=== PATIENT | male | born 1965 | race Caucasian/White ===

== ENCOUNTER → 2020-07-19 13:52 | Outpatient (CLI) | payer OTHER, SELFPAY ==
--- NOTE | ~2020-07-19 | MR_ITS ---
EXAMINATION: MR cervical spine wo con EXAM DATE: 07/19/2020 14:33 INDICATION: Left-sided neck pain, shoulder pain intermittent. TECHNIQUE: Multi-sequential, multiplanar MR images of the cervical spine were obtained without contra st. Axial T2, axial T2 MERGE sequence. Sagittal T1, T2, T2 fat saturation images also obtained. Th ere is no prior study for comparison. FINDINGS: There is moderate loss of the C4-5 disc height. The vertebral body and disc heights are ot herwise well maintained. The vertebral bodies are aligned in the AP dimension. The spinal cord signal intensity and intrinsic morphology is normal. Cervicomedullary junction is normal in appearance. The re are no suspicious marrow signal abnormalities. Level by level evaluation: C2-C3: Disc does not extend beyond the endplate margin. Uncovertebral joint arthropathy: Mild bilateral. Facet joint arthropathy: Mild bilateral. Neural foraminal stenosis: No stenosis. Central canal stenosis: No stenosis. C3-C4: Disc does not extend beyond the endplate margin. Uncovertebral joint arthropathy: Mild to moderate right, mild left. Facet joint arthropathy: Mild bilateral. Neural foraminal stenosis: Mild right. Central canal stenosis: No stenosis. C4-C5: There is a mild diffuse disc bulge. Uncovertebral joint arthropathy: Mild to moderate bilateral. Facet joint arthropathy: Mild bilateral. Neural foraminal stenosis: Moderate bilateral. Central canal stenosis: Mild. C5-C6: There is a minimal diffuse disc bulge. Uncovertebral joint arthropathy: Mild to moderate right, mild left. Facet joint arthropathy: Mild bilateral. Neural foraminal stenosis: Mild to moderate right, mild left. Central canal stenosis: No stenosis. C6-C7: There is a mild diffuse disc bulge, small superimposed left central protrusion into lateral re cess. Uncovertebral joint arthropathy: Mild to moderate left, mild right. Facet joint arthropathy: Mild bilateral. Neural foraminal stenosis: No stenosis. Central canal stenosis: Left lateral recess narrowing. C7-T1: There is a disc bulge asymmetric to the right. Uncovertebral joint arthropathy: Mild bilateral. Facet joint arthropathy: Mild bilateral. Neural foraminal stenosis: No stenosis. Central canal stenosis: No stenosis. IMPRESSION: 1. C6-7 left central protrusion narrowing the lateral recess. 2. Moderate neural foraminal stenosis C4-5. Reviewed, dictated and finalized at location A. 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
== END ==
PROVIDERS: PCP Family Medicine; Visit Provider Chiropractor Rehabilitation
DX: M54.12 Radiculopathy, cervical region (principal)
CPT/HCPCS: 72141

== ENCOUNTER 2021-11-29 15:37 | Outpatient (CLI) | payer OTHER, SELFPAY ==
--- NOTE | ~2021-11-29 | MR_ITS ---
EXAMINATION: MR cervical spine wo con DATE: 11/29/2021 16:27 INDICATION: Cervical radiculopathy. TECHNIQUE: Magnetic resonance imaging (MRI) of the cervical spine was performed without intravenous c ontrast. Sequences included sagittal T2-weighted FSE, sagittal T2-weighted FS FSE, sagittal T1-weight ed FSE, axial MERGE, and axial T2-weighted FSE. COMPARISON: Cervical spine MRI 07/19/2020 FINDINGS: There is 5 degrees levocurvature of cervicothoracic spine. Vertebral body heights are charlie l. There is moderately decreased disc height at C4-C5 and mildly decreased disc height at C6-C7. The spinal cord signal intensity is normal. The following disc levels are specifically discussed: C2-C3: The disc does not extend beyond the endplate margin. There is no uncovertebral joint osteoarth ritis. There is mild bilateral facet joint osteoarthritis. There is no neural foraminal stenosis. The re is no central canal stenosis. C3-C4: The disc does not extend beyond the endplate margin. There is mild bilateral uncovertebral paola nt osteoarthritis. There is no facet joint osteoarthritis. There is no neural foraminal stenosis. The re is no central canal stenosis. C4-C5: The disc is bulging. There is moderate bilateral uncovertebral joint osteoarthritis. There is severe left facet joint osteoarthritis. There is mild bilateral neural foraminal stenosis. There is m ild central canal stenosis. C5-C6: The disc does not extend beyond the endplate margin. There is mild bilateral uncovertebral paola nt osteoarthritis. There is mild bilateral facet joint osteoarthritis. There is mild bilateral neural foraminal stenosis. There is no central canal stenosis. C6-C7: There is a left central and foraminal zone extrusion. There is mild bilateral uncovertebral corinne int osteoarthritis. There is no facet joint osteoarthritis. There is moderate left neural foraminal s tenosis. There is mild central canal stenosis. There is mild stenosis of left lateral recess. C7-T1: There is a right central extrusion. There is no uncovertebral joint osteoarthritis. There is m ild bilateral facet joint osteoarthritis. There is no neural foraminal stenosis. There is mild centra l canal stenosis. IMPRESSION: 1. Moderate cervical spondylosis, stable from 07/19/2020. Reviewed, dictated and finalized at location A.
== END 2021-11-29 15:38 | disposition home or self-care (01) ==
PROVIDERS: PCP Family Medicine; Visit Provider Nurse Practitioner Adult Health
DX: M47.22 Other spondylosis with radiculopathy, cervical region (principal)
CPT/HCPCS: 72141

== ENCOUNTER 2022-03-11 14:15 | Outpatient (RCR) | payer OTHER, SELFPAY ==
[2022-02-25 09:47] VITALS: BMI 28.1
[2022-02-25 10:13] VITALS: BMI 28.1
== END 2022-05-13 09:55 | disposition home or self-care (01) ==
LOC: ANHDMC 14:15
PROVIDERS: PCP Family Medicine; Visit Provider Internal Medicine Endocrinology, Diabetes & Metabolism
DX: E11.65 Type 2 diabetes mellitus with hyperglycemia (principal); Z71.3 Dietary counseling and surveillance; Z71.89 Other specified counseling
CPT/HCPCS: 97802; G0108

== ENCOUNTER 2022-03-17 09:07 | Outpatient (RCR) | payer OTHER, SELFPAY ==
--- NOTE | 2022-03-17 10:17 | PTOPEVAL ---
PHYSICAL THERAPY EVALUATION Thank you for referring Wayne Walsh to [facility].? The patient is scheduled for an appointment in a month to await receiving his prosthesis. At that time a further care plan will be developed. Please review, sign, date and return this plan of care GENARO. I agree with and certify that the following plan of care is medically necessary. Referring Physician Date Attending Provider: Elan Calderon, Diagnosis left transtibial amputation Onset 11/06/21 Subjective Information well healed residual limb. His Query Text:As Reported By Patient/ amputation was a result of Family complications from an infection in left foot. Here today for trial and training with left lower extremity prosthetic. Prosthetic is present for trial. 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 Lower Extremity Range of Motion General Lower Extremity Range of Motion Reason Not Measured WFL/Left,WFL/Right Lower Extremity Muscle Strength Testing Hip Strength Left Hip Flexion Strength 5 Normal Hip Extension Strength 5 Normal Hip Abduction Strength 5 Normal Right Hip Flexion Strength 5 Normal Hip Extension Strength 4+ Good + Hip Abduction Strength 4+ Good + Knee Strength Left Knee Flexion Strength 5 Normal Knee Extension Strength 5 Normal Right Knee Flexion Strength 5 Normal Knee Extension Strength 5 Normal Ankle Strength Right Ankle Dorsiflexion Strength 4+ Good + Palpation well healed left residual limb Balance Assessment [place] Balance Assessment: 35/56 Comments while wearing prosthetic limb on left LE Time Up Go (TUG) Timed Up and Go Test (TUG) (Seconds) 21 Assistive Devices Walker, Wheeled Comments while wearing prosthetic limb
--- NOTE | 2022-04-16 09:39 | PCPTNOTE ---
Patient called & cancelled scheduled re-evaluation due to still not having received is prosthesis. He has been rescheduled.
--- NOTE | 2022-05-13 14:49 | PCPTNOTE ---
Patient did not show up for scheduled appointment this date.
--- NOTE | 2022-05-29 08:06 | PCPTNOTE ---
Called and left voicemail for patient asking if he has received his prosthesis yet. He was instructed to call in the next week if he needs to be scheduled. If we do not hear back from him, he will be discharged.
--- NOTE | 2022-06-03 09:16 | PTOPDC ---
Assessment and note entered by Niki Renteria, PT, DPT Evaluation Information Assessment Status Discharge - Pt Not Present Subjective Information Pt did not show up for his re-evaluation on . He was called and told that if he did not reschedule he would be discharged. Assessment PT Clinical Summary Pt has attended his initial evaluation on 03/17/22 and has not returned since. He will be discharged from skilled therapy services at this time. If he needs to return at a later date, he will need a new order. Plan of Care Treatment Frequency and to be discharged Duration
== END 2022-06-03 11:38 | disposition home or self-care (01) ==
LOC: ANHPT 09:07
PROVIDERS: PCP Family Medicine; Visit Provider Family Medicine
DX: M86.9 Osteomyelitis, unspecified (principal); Z89.512 Acquired absence of left leg below knee
CPT/HCPCS: 97163; 99199

== ENCOUNTER 2022-07-21 14:00 | Outpatient (RCR) | payer OTHER, SELFPAY ==
--- NOTE | 2022-06-23 15:33 | PTOPEVAL1 ---
Assessment and note entered by Ankit Shaikh, PT Evaluation Information Assessment Status Evaluation Diagnosis acquired absence of left lower extremity Subjective Information Patient reports that his L below knee amputation has healed and he has his prosthetic and would like to progress out of the wheelchair or using an assitive device and be a community ambulator. Reported Pain Level Pain Score 0: Self Report Assessment PT Clinical Summary Wayne is a 57 year old male coming into the clinic for a L below the knee amputation that has healed up and to start working on prosthetic training to walk without assistive device in a community setting especially outdoors on uneven surfaces. The patient has good strength besides hip abduction and extension. In walking patient appears to demonstrate L hip circumduction and hip hike to allow for foot clearance. Physical therapy will work with the patient on improving hip strength to allow for a good foundation for the prosthetic and gait training to improve patient's functional mobility. Plan of Care Interventions Electrical Stimulation,Gait Training,Hot Pack/Cold Pack,Manual Therapy,Neuro Re-education,Patient/ Caregiver Education,Prosthetic Training,Therapeutic Activities,Therapeutic Exercise,Ultrasound PT Services Indicated Yes Treatment Frequency and 2x/wk for 6 weeks Duration These treatments will address the objective and functional deficits as defined above. The patient will be advanced safely and appropriately in order for the patient to progress towards his/her prior level of function. Additional exercises will be introduced and as well as a comprehensive home exercise program upon discharge, if needed, ?to ensure carryover of functional gains achieved in the clinic. This treatment plan has been reviewed and agreement upon by the patient.
--- NOTE | 2022-09-17 16:55 | PCPTNOTE ---
Admitting Provider: Attending Provider: Elan CalderonMD Patient:Wayne Walsh Jr. Date of :1965 Patient has not returned for any further treatments since 07/21/2022, therefore (he/she) will be discharged at this time. Patient?s initial visit was on 06/23/2022 13:00 and (he/she) had a total of 8 visits. The goals have been (met). Thank you for referring this patient to [facility]. Please review, sign, date and return this discharge summary GENARO. I have been updated about the patient's current status and I agree with discharge from the above service at this time. Referring Physician Date
== END 2022-09-09 13:47 | disposition home or self-care (01) ==
LOC: ANHPT 14:00
PROVIDERS: PCP Family Medicine; Visit Provider Family Medicine
DX: Z47.81 Encounter for orthopedic aftercare following surgical amputation (principal); Z89.512 Acquired absence of left leg below knee
CPT/HCPCS: 97110; 97116; 97161; 97530; 97761

== ENCOUNTER 2022-12-09 09:02 | Emergency (ER) | payer OTHER, SELFPAY ==
--- NOTE | ~2022-12-09 | XR_ITS ---
EXAMINATION: XR finger 4th RT min 2V DATE: 12/09/2022 09:49 INDICATION: Right hand fourth digit foreign body. TECHNIQUE: 4 views of right hand fourth digit were obtained. COMPARISON: None. FINDINGS: Bone alignment is normal. No fracture. There is no evidence of osteomyelitis. There is mild osteoarthritis of fourth metacarpophalangeal joint and distal interphalangeal joint. No radiopaque f oreign body. IMPRESSION: 1. No radiopaque foreign body. Reviewed, dictated and finalized at location A.
[2022-12-09 09:17] VITALS: BP 132/74; PULSE 59; RESP 16; TEMP 36; O2SAT 99
--- NOTE | 2022-12-09 09:25 | ED.UPPEXIN ---
HPI - Extremity Injury (Upper) General Chief Complaint: Extremity Injury, Upper Stated Complaint: finger pain and irritation/rt hand Time Seen by Provider: 12/09/22 09:25 Source: patient Mode of arrival: ambulatory Limitations: no limitations History of Present Illness HPI narrative: 57 yo M presents with concern for infection to R ring finger. 1 week ago he was working outside and was stuck by a thorn. He began to have redness and swelling to R ring finger 3 days ago and getting progressively worse. afebrile. reports due to his diabetes he likes to get infections taken care of right away. ROM to R ring decreased due to pain and swelling. distal NV intact. All systems reviewed and negative except as noted above. Related Data Home Medications Medication Instructions Recorded Confirmed allopurinol 300 mg tablet 300 mg PO DAILY 12/09/22 12/09/22 aspirin 81 mg tablet,delayed 81 mg PO DAILY 12/09/22 12/09/22 release empagliflozin 10 mg tablet 10 mg PO DAILY 12/09/22 12/09/22 (Jardiance) fenofibrate 160 mg tablet 160 mg PO DAILY 12/09/22 12/09/22 metformin 1,000 mg tablet 1,000 mg PO BID 12/09/22 12/09/22 metoprolol succinate 25 mg 25 mg PO DAILY 12/09/22 12/09/22 tablet,extended release 24 hr omega-3 acid ethyl esters 1 gram 1 g PO DAILY 12/09/22 12/09/22 capsule simvastatin 40 mg tablet 40 mg PO DAILY 12/09/22 12/09/22 Allergies Allergy/AdvReac Type Severity Reaction Status Date / Time No Known Allergies Allergy Verified 12/09/22 19:05 Review of Systems Review of Systems: CONSTITUTIONAL: Denies fever, chills, or sweats. EYES: Denies visual changes, redness, or discharge. ENT: Denies rhinorrhea, congestion, sore throat, or otalgia. CARDIOVASCULAR: Denies chest pain, palpitations, or edema. RESPIRATORY: Denies cough or dyspnea. GASTROINTESTINAL: Denies abdominal pain, nausea, vomiting, or diarrhea. GENITOURINARY: Denies dysuria or hematuria. SKIN: Erythema and swelling noted to right ring finger. MUSCULOSKELETAL: Denies back pain, joint pain, or myalgia. NEUROLOGIC: Denies headache, numbness, or weakness. PSYCHIATRIC: Denies anxiety or depression. All other systems reviewed are negative, except as documented in HPI. 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 He lives with his . He has 4 children . 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 Code status full code Smoking packs per day: 0.75 Smoking cigarettes per day: 15.0 Years smoked: 15 Smoking pack-years: 11.25 Smoking status: Current every day smoker Tobacco type: cigarettes Alcohol intake: current Lack of Transportation: No Lack of Food: Never True Current Housing: I Have Housing Concerned About Future Housing: No Difficulty Paying Gas/Electric Bills: No Difficulty Paying for Meds: No Currently Unemployed: No Education: Associate Degree Difficulty w/ Childcare or Family Care: No Spiritual care concerns: No Comments At time of signature, agree with nursing past medical, surgical, social and family history. There is no relevant family history pertinent to the presenting complaint.
[2022-12-09] MEDS: cefTRIAXone 1 GM, LIDOCAINE HCL 1% LOCAL INJ 2.1 ML IM (10:00)
== END 2022-12-09 10:32 | disposition home or self-care (01) ==
PROVIDERS: Emergency Provider Nurse Practitioner Family; PCP Family Medicine
DX: L03.011 Cellulitis of right finger (principal); F17.210 Nicotine dependence, cigarettes, uncomplicated; E11.9 Type 2 diabetes mellitus without complications; M10.9 Gout, unspecified; E78.5 Hyperlipidemia, unspecified; I10 Essential (primary) hypertension; Z89.512 Acquired absence of left leg below knee
CPT/HCPCS: 73140; 96372; 99213; G0463; J0696

== ENCOUNTER 2022-12-09 18:20 | Observation (INO) | payer OTHER, SELFPAY ==
[2022-12-09] VITALS (7 sets, daily range): BP systolic 128–148; BP diastolic 68–79; PULSE 62–72; RESP 16–18; TEMP 36.5–36.6; O2SAT 92–97; BMI 28.6
--- NOTE | 2022-12-09 19:23 | ED.GENADULT ---
HPI - General Adult General Chief complaint: Skin/Abscess/Foreign Body Stated complaint: finger wound Time Seen by Provider: 12/09/22 19:09 History of Present Illness HPI narrative: Patient is a 57-year-old gentleman who presents the emergency department with chief complaint of right ring finger pain. Patient reports that approximately week ago he thinks he may have pricked his finger on a thorn of a lydia richter. The patient states that since that time his fingers become swollen and is holding it in a flexed position. Patient states that the area has become black and now is tender to touch even after receiving a IM dose of Rocephin in urgent care this morning and being started on Keflex. The patient has prior history of diabetes and has had complications of osteomyelitis and a below-knee amputation of his left lower extremity. The patient reports that his symptoms have not improved since receiving the IM antibiotics Related Data Home Medications Medication Instructions Recorded Confirmed allopurinol 300 mg tablet 300 mg DIRECTED 12/09/22 12/09/22 aspirin 81 mg tablet,delayed 81 mg DIRECTED 12/09/22 12/09/22 release empagliflozin 10 mg tablet mg 12/09/22 (Jardiance) fenofibrate 160 mg tablet mg 12/09/22 metformin 1,000 mg tablet mg 12/09/22 metoprolol succinate 25 mg mg PO 12/09/22 tablet,extended release 24 hr omega-3 acid ethyl esters 1 gram PO 12/09/22 capsule simvastatin 40 mg tablet mg 12/09/22 Allergies Allergy/AdvReac Type Severity Reaction Status Date / Time No Known Allergies Allergy Verified 12/09/22 19:05 Review of Systems Review of Systems: A 10 system review of systems was completed on the patient and is negative except for what is stated in the HPI. Nursing and ancillary documentation was reviewed. [facility] Social History Social History Spiritual care concerns: No Exam Narrative: GENERAL: Well-appearing, well-nourished, and in no acute distress. HEAD: Normocephalic, atraumatic. EYES: PERRLA and EOMI. ENT: Nares clear, no rhinorrhea or epistaxis. Mucous membranes moist. NECK: Supple. CHEST: Clear to auscultation. No respiratory distress. HEART: Regular rate and rhythm. No murmur heard. Normal peripheral pulses. ABDOMEN: Soft, nontender, nondistended, normal active bowel sounds. EXTREMITIES: Normal range of motion. No edema. There is redness and black-colored tissue of the the right ring finger the patient is holding finger in a flexed position and has difficulty bending the tip of the finger is there is no crepitance there is no drainage. SKIN: Warm, dry, no rash. NEURO: No focal deficits. Alert and oriented x3. PSYCH: Normal mood and affect. Course Vital Signs Vital signs: Vital Signs Temperature 36.5 C 12/09/22 18:22 Pulse Rate 72 12/09/22 18:22 Respiratory Rate 18 12/09/22 18:22 Blood Pressure 148/78 H 12/09/22 18:22 Pulse Oximetry 96 12/09/22 18:22 Oxygen Delivery Room Air 12/09/22 18:22 Temperature 36.5 C 12/09/22 18:22 Pulse Rate 65 12/09/22 20:32 Respiratory Rate 16 12/09/22 20:32 Blood Pressure 133/73 12/09/22 20:32 Pulse Oximetry 94 12/09/22 20:32 Oxygen Delivery Room Air 12/09/22 18:22 Medical Decision Making MDM Narrative Medical decision making narrative: Differential diagnoses include cellulitis, abscess, osteomyelitis, flexor tenosynovitis Records were reviewed from the patient's visit to urgent care this morning, images were personally reviewed by me and that showed no evidence of subcutaneous emphysema radiology report showed no evidence of osteomyelitis fracture or radiopaque foreign body Patient was started empirically on clindamycin Laboratory studies were obtained which showed a white count of 8.1 is not significant electrolytes showed a glucose of 313 CRP was elevated at 5.9 and lactate was normal at 1.1. Blood cultures were
[2022-12-09 20:43] LABS: Basophils Absolute Auto 0.1 K/mm3 (0.0-0.1); Basophils Percent Auto 0.6 % (0.2-1.2); Eosinophils Absolute Auto 0.1 K/mm3 (0-0.3); Eosinophils Percent Auto 0.9 % (0-4.4); Hematocrit 41.9 % (42.0-52.0); Hemoglobin 14.1 g/dL (14.0-18.0); Immature Granulocyte Absolute 0.04 K/mm3 (0.00-0.031); Immature Granulocyte Percent A 0.5 % (0-0.5); Lymphocytes Absolute Auto 1.48 K/mm3 (0.9-3.2); Lymphocytes Percent Auto 18.4 % (18.3-44.2); Mean Corpuscular HGB Conc 33.7 g/dl (32-36); Mean Corpuscular Hemoglobin 29.6 pg (26-34); Mean Corpuscular Volume 87.8 fl (80-100); Mean Platelet Volume 10.9 fl (7.4-10.4); Monocytes Absolute Auto 0.5 K/mm3 (0.1-0.6); Monocytes Percent Auto 6.5 % (2.6-8.5); Neutrophils Absolute Auto 5.9 K/mm3 (1.3-6.7); Neutrophils Percent Auto 73.1 % (45.5-73.1); Platelet Count Result 145 k/mm3 (150-375); Red Blood Count 4.77 M/mm3 (4.6-6.20); Red Cell Distribution Width 14.4 % (11.5-14.5); White Blood Count 8.1 K/mm3 (4.5-10.0)
[2022-12-09 20:55] LABS: Lactic Acid Reflex 1.1 mmol/L (0.7-2.0)
[2022-12-09 21:09] LABS: Alanine Aminotransferase 18 U/L (6-50); Alkaline Phosphatase 52 U/L (38-126); Anion Gap 8 mmol/L (8-16); Aspartate Amino Transferase 18 U/L (17-59); Bilirubin,Total 0.7 mg/dL (0.2-1.3); Blood Urea Nitrogen 18 mg/dL (9-20); CRP 5.9 mg/dL (<1.0); Calcium 9.3 mg/dL (8.4-10.2); Carbon Dioxide 28 mmol/L (22-30); Chloride 100 mmol/L (98-107); Estimated CRCL calculation 84 ml/min; Estimated Glomerular Filt Rate > 60; Glucose 313 mg/dL (65-110); Potassium 3.9 mmol/L (3.4-5.0); Sodium 136 mmol/L (137-145)
[2022-12-09] MEDS: CLINDAMYCIN 600 MG/D5W 50 ML 600 MG/50 ML PIGGYBACK 100 MG IVPB (21:13)
--- NOTE | 2022-12-09 21:27 | PM.IMHP ---
H&P: HPI History of Present Illness Date/Time: 12/09/22 21:27 Chief Complaint: Skin abscess Narrative: This is a 57-year-old diabetic male patient who came to the emergency room with concerns of infection to his right ring finger. He had right ring finger pain. The patient stated approximately week ago he thinks he perked his finger on a thorn of a lydia richter. The patient states that since that time he has been holding his hand in a flexed position since the finger is swollen. The patient stated that he did go to the urgent care and he was given a dose of IM Rocephin and was treated with Keflex. The patient has had 2 days of Keflex and his fingers not getting any better. The patient stated that his blood sugars are typically around 140. The patient has had a history of osteomyelitis and eventually had a left [id number] amputation. His white count is normal. Platelets are slightly low at 145. Sodium slightly low at 136. His glucose is noted to be 313. His C reactive protein is 5.9. His heart rate is 62 and his blood pressure is 136/69. The patient does not appear to be septic. There is significant swelling to the left ring finger and the patient is not able to Street not his ring finger due to the swelling. The patient was given clindamycin in the emergency room. X-ray of the finger was read as no radiopaque foreign body. Plastic surgeon Dr. Carrasquillo was notified and agreed to consult on the patient. The patient is being admitted to observation status on the date of service of 12/09/2022. Review of Systems Review of Systems: All systems reviewed & are unremarkable except as noted in HPI and below Constitutional: Constitutional: Reports as per HPI and Reports no additional constitutional complaints Eyes: Eyes: Reports as per HPI and Reports no additional eye complaints ENT: Reports system reviewed and no additional complaints, except as documented and Reports Normal hearing present Cardiovascular: Cardiovascular: Reports no additional cardiovascular complaints Respiratory: Respiratory: Reports no additional respiratory complaints and Reports no additional respiratory complaints Gastrointestinal: Gastrointestinal: Reports as per HPI and Reports no additional gastrointestinal complaints Musculoskeletal: Musculoskeletal: Reports no additional musculoskeletal complaints Integumentary/Breasts: Skin/Breast: Reports system reviewed and no additional complaints, except as docu and Reports as per HPI Neurologic: Reports system reviewed and no additional complaints, except as documented, Reports as per HPI and Reports Normal hearing present Psychiatric: Psychiatric: Reports no additional psychiatric complaints and Reports as per HPI Endocrine: Endocrine: Reports no additional endocrine complaints Hematologic/Lymphatic: Hematologic/Lymphatic: Reports no additional hematologic/lymphatic complaints Allergic/Immunologic: Allergic/Immunologic: Reports no additional allergic/immunologic complaints PMFSH Past Medical History Medical History (Updated 12/09/22 @ 23:13 by Giana Ramey NP) Amputated toe Below knee amputation left bka Diabetes Gout Hyperlipidemia associated with type 2 diabetes mellitus Hypertension Surgical History Surgical History (Updated 12/09/22 @ 21:31 by Giana Ramey NP) H/O eye surgery Hx of cataract extraction Family History Family History (Updated 12/09/22 @ 22:36 by DENNIS Barron) Mother Diabetes mellitus Hyperlipidemia associated with type 2 diabetes mellitus Father Diabetes mellitus Hyperlipidemia associated with type 2 diabetes mellitus Hypertension Lung cancer Sibling Cerebrovascular accident Social History Social History (Updated 12/09/22 @ 23:05 by Giana Ramey NP) Social History: 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 He lives with his . He has 4 children . 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
[2022-12-09] MEDS: CEFEPIME 2 GM/NS 50 ML 2 GM/50 ML BAG IVPB (22:03)
--- NOTE | 2022-12-09 22:33 | ADMGEN ---
This patient, Wayne Walsh Jr., was admitted to [address] [place] [address] Room 300-01. Patient/family oriented to hospital policies and general routines including ID bracelet, bed and alarms, visiting hours, pain management, procedures, bathroom and other care routines, personal items, smoking policy, room service/diet, and visiting hours. Information on how to activate the Rapid Response Team has been discussed. Patient/Family are encouraged to report perceived risks to care and to ask questions if they do not understand what they are told or what they should do.
[2022-12-09] MEDS: SODIUM CHLORIDE 0.9% IV 1,000 ML 125 ML IV CONT (22:55)
[2022-12-10] MEDS: metroNIDAZOLE 500 MG/ISO 100ML 500 MG/100 ML BAG 100 MG IVPB ×4 (02:12→22:51)
[2022-12-10 02:31] LABS: Glucose Point of Care 325 mg/dl (65-105)
[2022-12-10] MEDS: INSULIN ASPART (*BKC) 100 UNITS/ML SUB-Q ×4 (02:33→17:10)
[2022-12-10 05:32] LABS: Glucose Point of Care 248 mg/dl (65-105)
[2022-12-10 06:00] VITALS: BP 136/72; PULSE 54; RESP 16; TEMP 35.8; O2SAT 98
[2022-12-10 06:19] LABS: Basophils Percent Auto 0.6 % (0.2-1.2); Eosinophils Absolute Auto 0.1 K/mm3 (0-0.3); Eosinophils Percent Auto 1.7 % (0-4.4); Hematocrit 42.6 % (42.0-52.0); Immature Granulocyte Absolute 0.03 K/mm3 (0.00-0.031); Immature Granulocyte Percent A 0.4 % (0-0.5); Immature Platelet Fraction Pct 4.9 % (0.9-11.2); Lymphocytes Absolute Auto 1.67 K/mm3 (0.9-3.2); Mean Corpuscular HGB Conc 32.9 g/dl (32-36); Mean Corpuscular Hemoglobin 29.4 pg (26-34); Mean Corpuscular Volume 89.5 fl (80-100); Mean Platelet Volume 10.5 fl (7.4-10.4); Monocytes Absolute Auto 0.6 K/mm3 (0.1-0.6); Monocytes Percent Auto 7.6 % (2.6-8.5); Neutrophils Absolute Auto 4.8 K/mm3 (1.3-6.7); Neutrophils Percent Auto 66.7 % (45.5-73.1); Platelet Count Result 148 k/mm3 (150-375); Red Blood Count 4.76 M/mm3 (4.6-6.20); Red Cell Distribution Width 14.6 % (11.5-14.5); White Blood Count 7.3 K/mm3 (4.5-10.0)
[2022-12-10 06:29] LABS: Lactic Acid Reflex 0.8 mmol/L (0.7-2.0)
[2022-12-10 06:34] LABS: Anion Gap 7 mmol/L (8-16); Blood Urea Nitrogen 17 mg/dL (9-20); Calcium 8.8 mg/dL (8.4-10.2); Carbon Dioxide 27 mmol/L (22-30); Chloride 102 mmol/L (98-107); Estimated CRCL calculation 75 ml/min; Estimated Glomerular Filt Rate > 60; Glucose 249 mg/dL (65-110); Magnesium 2.1 mg/dL (1.6-2.3); Sodium 136 mmol/L (137-145)
[2022-12-10 07:19] LABS: Hemoglobin A1C 10.6 % (<5.7)
[2022-12-10] MEDS: CEFEPIME 2 GM/NS 50 ML 2 GM/50 ML BAG IVPB ×2 (09:16→21:49)
[2022-12-10 12:00] LABS: Glucose Point of Care 227 mg/dl (65-105)
[2022-12-10] MEDS: SODIUM CHLORIDE 0.9% IV 1,000 ML 125 ML IV CONT (12:06)
--- NOTE | 2022-12-10 12:31 | WPDCN ---
Assessment and Plan Assessment and plan (1) Cellulitis of right ring finger: Code(s): L03.011 - Cellulitis of right finger Status: Acute Assessment and Plan: Cellulitis of right ring finger. Puncture injury to pad of distal phalanx. No flexor tenosynovitis. Likely bacterial. Sporotrichosis not ruled out. Plan Continue Iv coverage for aerobes and anaerobes. Monitor inflammatory markers. I will see daily. HPI Data of Consult Date/Time: 12/10/22 12:31 Requesting Physician: Henri Snider MD Primary Care Provider: Elan Calderon, Consult Narrative Narrative: Wayne Walsh Jr. is a 57 year old male diabetic with an infection of the right ring finger for 7 days. He recalls a thorn puncture while in his yd. He believes this started the inflammation. He is a diabetic on Jardiance and metformin with hemoglobin A1c of 10.6. About 4 days ago the area became darker was swollen. He began taking ibuprofen 800 mg for pain. Yesterday he went to [facility] and was given IM Rocephin. An x-ray was taken that showed no foreign bodies or fracture. The patient went later the same day to the emergency room at [facility] where he was advised to be admitted. The finger tip is dark but appears viable and erythema extends along the finger laterally to the base. There is no other lymphangitis. There is very small serous drainage. The patient thought he might have had a blood blister in this area but he did not rupture that nor did ER staff. There was a small tear in the skin he says was caused by scissors when he was removing a Band-Aid. His pain today seems to be controlled by IV Tylenol and he had no pain essentially at the time I was examining him. On his arrival to the emergency room, his white count was normal. The C reactive protein was slightly elevated at 6. The blood glucose add dropped from low 300s to low 200s after the 1st test done at the [facility]. Presently he is started on metronidazole, cefepime and vancomycin. 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 He lives with his . He has 4 children . 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 Code status full code Smoking packs per day: 0.75 Smoking cigarettes per day: 15.0 Years smoked: 15 Smoking pack-years: 11.25 Smoking status: Current every day smoker Tobacco type: cigarettes Alcohol intake: current Lack of Transportation: No Lack of Food: Never True Current Housing: I Have Housing Concerned About Future Housing: No Difficulty Paying Gas/Electric Bills: No Difficulty Paying for Meds: No Currently Unemployed: No Education: Associate Degree Difficulty w/ Childcare or Family Care: No Spiritual care concerns: No Meds Home Medications and Allergies Home Medications Medication Instructions Recorded Confirmed Type allopurinol 300 mg table
[2022-12-10 14:00] VITALS: BP 130/76; PULSE 55; RESP 22; TEMP 36.2; O2SAT 99
--- NOTE | 2022-12-10 14:38 | PM.IMPN ---
Progress Note: A&P Assessment and Plan (1) Cellulitis of right ring finger: Code(s): L03.011 - Cellulitis of right finger Status: Acute Assessment and Plan: Patient believes he possibly got stuck by a the worn on his right ring finger approximately 1 week for ED arrival. Four days before arrival he began to notice swelling and redness in the finger and 24 hours per arrival he was seen in the ED due to finger turning dark purple/black and using bloody fluid. As per diabetic cellulitis protocol the patient was started on cefepime, Flagyl vancomycin. Blood cultures are pending Dr. Grimaldo has agreed to see patient and I appreciate his recommendations X-ray of the finger shows no radiopaque foreign body. The patient does not appear to be septic patient's heart rate and blood pressure within normal limits. However his CRP is elevated. Repeat CRP still elevated, lactic back within normal limits. Continue with analgesic (2) Hyperlipidemia associated with type 2 diabetes mellitus: Code(s): E11.69 - Type 2 diabetes mellitus with other specified complication; E78.5 - Hyperlipidemia, unspecified Status: Acute Assessment and Plan: Continue with fenofibrate and [place] 3 Continue with simvastatin (3) Diabetes: Code(s): E11.9 - Type 2 diabetes mellitus without complications Status: Acute Assessment and Plan: Accu-Cheks AC and HS with moderate sliding scale insulin. Hypoglycemic protocol. Hemoglobin A1c 10.6, patient states sugars normally run in the 140s to 150s Continue with Jardiance (4) Hypertension: Code(s): I10 - Essential (primary) hypertension Status: Acute Assessment and Plan: Continue with metoprolol. Hold metoprolol if heart rate less than 50 and or map less than 65. (5) Gout: Code(s): M10.9 - Gout, unspecified Status: Acute Assessment and Plan: Continue with allopurinol Subjective Date/time seen: 12/10/22 14:38 Interval history: Patient resting comfortably in bed and is having pain in his finger. patient denies systemic symptoms such as nausea, vomiting, body aches, chills. No signs of sepsis thus far. White count within normal limits. Review of Systems Review of Systems: All systems reviewed & are unremarkable except as noted in HPI and below Exam Narrative: GENERAL: Comfortable, no acute distress HENMT: moist mucous membranes EYES: EOM intact b/l NECK: no lymphadenopathy RESPIRATORY: clear to auscultation CARDIO: RRR GI: soft, nontender, bowel sounds present SKIN: no rashes EXTREMITIES: Right ring finger erythema and edema extending to the MCP with dark purple skin intent above the DIP. Objective Data Vital Signs Vital Signs: Vital Signs - 24 hr 12/09/22 18:22 12/09/22 20:32 12/09/22 20:45 Temperature 97.7 F Pulse Rate 72 65 Respiratory Rate 18 16 Blood Pressure 148/78 H 133/73 129/69 Pulse Oximetry 96 94 92 Oxygen Delivery Room Air 12/09/22 21:00 12/09/22 21:15 12/09/22 21:31 Temperature Pulse Rate Respiratory Rate Blood Pressure 128/68 146/79 H 139/73 Pulse Oximetry 93 94 97 Oxygen Delivery 12/09/22 22:26 12/10/22 06:00 12/10/22 09:16 Temperature 97.9 F 96.4 F L Pulse Rate 62 54 L Respiratory Rate 16 16 Blood Pressure 136/69 136/72 Pulse Oximetry 94 98 Oxygen Delivery Room Air 12/10/22 14:00 Temperature 97.1 F L Pulse Rate 55 L Respiratory Rate 22 H Blood Pressure 130/76 Pulse Oximetry 99 Oxygen Delivery Intake/Output Intake/Output: Intake & Output 12/07/22 12/08/22 12/09/22 12/10/22 23:59 23:59 23:59 23:59 Intake Total 50 2300 Output Total 150 Balance 50 2150 Meds/Results Medications: Active Medications Generic Name Dose Route Start Last Admin Trade Name Freq PRN Reason Stop Dose Admin Acetaminophen 650 mg 12/09/22 21:17 Acetaminophen 325 Mg Tablet PO
[2022-12-10 16:31] LABS: Glucose Point of Care 258 mg/dl (65-105)
[2022-12-10] MEDS: metFORMIN HCL 500 MG TABLET 1000 MG PO (17:10)
[2022-12-10 20:25] LABS: Glucose Point of Care 268 mg/dl (65-105)
[2022-12-10 22:00] VITALS: BP 127/72; PULSE 64; RESP 18; TEMP 36.3; O2SAT 96
[2022-12-11] VITALS (11 sets, daily range): BP systolic 109–160; BP diastolic 60–79; PULSE 53–80; RESP 16–20; TEMP 35.6–36.4; O2SAT 94–98
[2022-12-11] MEDS: metroNIDAZOLE 500 MG/ISO 100ML 500 MG/100 ML BAG 100 MG IVPB ×3 (06:02→20:50)
[2022-12-11] MEDS: SODIUM CHLORIDE 0.9% IV 1,000 ML 125 ML IV CONT ×2 (06:02→21:01)
[2022-12-11 07:44] LABS: Glucose Point of Care 181 mg/dl (65-105)
[2022-12-11] MEDS: FENOFIBRATE 160 MG TABLET PO (08:40)
[2022-12-11] MEDS: SIMVASTATIN 20 MG TABLET 40 MG PO (08:40)
[2022-12-11] MEDS: metFORMIN HCL 500 MG TABLET 1000 MG PO ×2 (08:40→16:44)
[2022-12-11] MEDS: allopurinoL 300 MG TABLET PO (08:40)
[2022-12-11] MEDS: OMEGA 3 POLYUNSAT FATTY ACIDS 1 GM CAP PO (08:40)
[2022-12-11] MEDS: EMPAGLIFLOZIN 10 MG TABLET PO (08:40)
[2022-12-11] MEDS: METOPROLOL SUCCINATE EXT REL 25 MG TABCR PO (08:40)
[2022-12-11] MEDS: ASPIRIN 81 MG ENTERIC TABLET PO (08:40)
[2022-12-11] MEDS: CEFEPIME 2 GM/NS 50 ML 2 GM/50 ML BAG IVPB ×2 (09:07→22:46)
--- NOTE | 2022-12-11 09:35 | WPDPN ---
Progress Note: A&P Assessment and Plan (1) Cellulitis of right ring finger: Code(s): L03.011 - Cellulitis of right finger Status: Acute Plan Needs I&D today with local. Will get wound culture. Time Spent With Patient Time with patient: less than 15 minutes Subjective Date/time seen: 12/11/22 09:35 Interval history: Finger still painful and red. Exam Narrative: Finger looks similar to yesterday but more edematous dorsally. Erythema unchanged. Clear exudate draining. Pad skin locally sloughing. Objective Data Vital Signs Vital Signs: Vital Signs - 24 hr 12/10/22 14:00 12/10/22 19:49 12/10/22 22:00 Temperature 97.1 F L 97.3 F L Pulse Rate 55 L 64 Respiratory Rate 22 H 18 Blood Pressure 130/76 127/72 Pulse Oximetry 99 96 Oxygen Delivery Room Air 12/11/22 06:00 12/11/22 07:57 12/11/22 08:40 Temperature 96.1 F L Pulse Rate 55 L 63 63 Respiratory Rate 20 Blood Pressure 160/76 H Pulse Oximetry 98 95 Oxygen Delivery Room Air Intake/Output Intake/Output: Intake & Output 12/08/22 12/09/22 12/10/22 12/11/22 23:59 23:59 23:59 23:59 Intake Total 50 4390 800 Output Total 150 Balance 50 4240 800 Meds/Results Medications: Active Medications Generic Name Dose Route Start Last Admin Trade Name Freq PRN Reason Stop Dose Admin Acetaminophen 650 mg 12/09/22 21:17 Acetaminophen 325 Mg Tablet PO Q4H PRN Mild Pain (1-3) or Fever Allopurinol 300 mg 12/11/22 09:00 12/11/22 08:40 Allopurinol 300 Mg Tablet PO 300 mg DAILY RIANNA Administration Aspirin 81 mg 12/11/22 09:00 12/11/22 08:40 Aspirin 81 Mg Enteric Tablet PO 81 mg DAILY RIANNA Administration Dextrose 12.5 gm 12/09/22 23:11 Dextrose 50% 25 Gm/50 Ml Syringe IV PUSH PRN PRN Hypoglycemia Protocol Empagliflozin 10 mg 12/11/22 09:00 12/11/22 08:40 Empagliflozin 10 Mg Tablet PO 10 mg DAILY RIANNA Administration Fenofibrate 160 mg 12/11/22 09:00 12/11/22 08:40 Fenofibrate 160 Mg Tablet PO 160 mg DAILY RIANNA Administration Fish Oil 1 gm 12/11/22 09:00 12/11/22 08:40 [place] 3 Polyunsat Fatty Acids 1 Gm Cap PO 1 gm DAILY RIANNA Administration Glucagon 1 mg 12/09/22 23:11 Glucagon For Inj 1 Mg Vial IM PRN PRN Hypoglycemia Protocol Glucose 15 gm 12/09/22 23:11 Glucose Oral Gel 15 Gm Of Glucse In 37.5 Gm Tube PO PRN PRN Hypoglycemia Protocol Sodium Chloride 1,000 mls @ 125 mls/hr 12/09/22 21:20 12/11/22 06:02 Normal Saline Iv IV CONT 125 mls/hr .Q8H RIANNA Administration Cefepime HCl 2 gm in 50 mls @ 100 mls/hr 12/09/22 22:00 12/11/22 09:07 Maxipime 2 Gm/Ns 50 Ml IVPB 100 mls/hr Q12H RIANNA Administration Metronidazole 500 mg in 100 mls @ 100 mls/hr 12/09/22 22:00 12/11/22 07:02 Flagyl 500 Mg/Iso Soln 100 Ml IVPB Infused Q8H RIANNA Infusion Vancomycin HCl 1,500 mg in 500 mls @ 250 mls/hr 12/10/22 11:00 12/11/22 00:11 Vancomycin 1,500 Mg/D5w 500 Ml IVPB 200 mls/hr Q12H RIANNA Administration Dextrose 1,000 mls @ 100 mls/hr 12/09/22 23:11 Dextrose 5% 1,000 Ml IVPB PRN PRN Hypoglycemia Protocol Acetaminophen 1,000 mg in 100 mls @ 400 mls/hr 12/10/22 14:43 12/11/22 08:54 Ofirmev 1,000 Mg Ivpb IVPB 12/11/22 14:42 Infused Q6H PRN Infusion Pain Rated 4-6 Insulin Aspart 3 - 6 units 12/10/22 17:00 12/11/22 08:36 Insulin Aspart (*Bkc) 100 Units/Ml SUB-Q Not Given TIDWM RIANNA Protocol Metformin HCl 1,000 mg 12/10/22 17:00 12/11/22 08:40 Metformin Hcl 500 Mg Tablet PO 1,000 mg BIDWM RIANNA Administration Metoprolol Succinate 25 mg 12/11/22 09:00 12/11/22 08:40 Metoprolol Succinate Ext Rel 25 Mg Tabcr PO 25 mg DAILY RIANNA Administration Simvastatin 40 mg 12/11/22 09:00 12/11/22 08:40 Simvastatin 20 Mg Tablet PO 40 mg DAILY RIANNA Administration Labs Labs: Laboratory Results - last 24 hr
[2022-12-11 09:57] LABS: Basophils Percent Auto 0.5 % (0.2-1.2); Eosinophils Absolute Auto 0.1 K/mm3 (0-0.3); Eosinophils Percent Auto 1.8 % (0-4.4); Hematocrit 41.8 % (42.0-52.0); Hemoglobin 13.8 g/dL (14.0-18.0); Immature Granulocyte Absolute 0.03 K/mm3 (0.00-0.031); Immature Granulocyte Percent A 0.5 % (0-0.5); Lymphocytes Absolute Auto 1.15 K/mm3 (0.9-3.2); Lymphocytes Percent Auto 18.4 % (18.3-44.2); Mean Corpuscular Hemoglobin 29.6 pg (26-34); Mean Corpuscular Volume 89.7 fl (80-100); Mean Platelet Volume 9.9 fl (7.4-10.4); Monocytes Absolute Auto 0.4 K/mm3 (0.1-0.6); Monocytes Percent Auto 6.7 % (2.6-8.5); Neutrophils Absolute Auto 4.5 K/mm3 (1.3-6.7); Neutrophils Percent Auto 72.1 % (45.5-73.1); Platelet Count Result 137 k/mm3 (150-375); Red Blood Count 4.66 M/mm3 (4.6-6.20); Red Cell Distribution Width 14.6 % (11.5-14.5); White Blood Count 6.3 K/mm3 (4.5-10.0)
[2022-12-11 10:17] LABS: Alanine Aminotransferase 22 U/L (6-50); Albumin Level 3.8 g/dL (3.5-5.1); Alkaline Phosphatase 48 U/L (38-126); Anion Gap 7 mmol/L (8-16); Aspartate Amino Transferase 26 U/L (17-59); Bilirubin,Total 0.8 mg/dL (0.2-1.3); Blood Urea Nitrogen 12 mg/dL (9-20); CRP 4.3 mg/dL (<1.0); Calcium 8.4 mg/dL (8.4-10.2); Carbon Dioxide 27 mmol/L (22-30); Chloride 102 mmol/L (98-107); Estimated CRCL calculation 75 ml/min; Estimated Glomerular Filt Rate > 60; Glucose 239 mg/dL (65-110); Potassium 4.2 mmol/L (3.4-5.0); Sodium 136 mmol/L (137-145)
[2022-12-11 11:01] LABS: Vancomycin Trough 14.6 ug/mL (10.0-20.0)
[2022-12-11] MEDS: LIDO 1%/EPINEPHRINE 1:100,000 50 ML VIAL 20 ML INFILTRATE (11:46)
--- NOTE | 2022-12-11 11:47 | SUR.OPER ---
Tournicot placed on finger by surgeon at 11:30. Removed at 11:42.
--- NOTE | 2022-12-11 11:53 | P.OP_ITS ---
Procedure Note - Detailed Date of Procedure 12/11/22 Pre-op Diagnosis Right Ring Finger Cellulitis Post-op Diagnosis Other (Felon right ring finger) Procedure Performed Debridement of felon right ring finger with cultures. Surgeon Ross Grimaldo MD Anesthesia Local Indications Swelling and drainage of distal phalanx without Flexor tenosynovitis. Findings [place] Description of Procedure The site was marked for proper digit on the patient in the holding area. He was taken to the operating room was placed supine on the operating table. A time- out was held and confirmed. The digit was prepped and draped usual fashion. A digital block with 1% lidocaine with epinephrine was infiltrated. 3 milliliter were used. The blue tourniquet was carefully placed over the distal and middle phalanges and applied to the base of the proximal phalanx. The volar midline incision was made which revealed phlegmonous tissue and light brown pus. This was cultured. The superficial blisters were debrided away with scissors. The midline incision was irrigated with about 200 milliliter of saline. The hand was turned over and a dorsal midline incision was made where the area was alfred but no purulence was noted there. The nail plate was not disturbed. I did a 1 cm lateral incision to parallel the nail on both sides and passed a hemostat across to open all septi of the pad. A piece of iodoform gauze was passed th rough and through. The site was then irrigated again with about 200 milliliter of saline it was demonstrated that there was no incompetence of the fascial tissue proximal to the distal interphalangeal joint. The flexor tendon insertion was noted to be intact. About 2-1/2 inches of iodoform gauze were placed in the midline wound. A soft bulky Kerlix bandage was applied with no compression wrapping. He was discharged from the operating room stable condition. Estimated Blood Loss 0 Urine Output 150 Drains No Packing Yes Pathology Yes Complications No immediate complications Condition Stable Disposition Floor
[2022-12-11 12:07] LABS: Glucose Point of Care 215 mg/dl (65-105)
[2022-12-11] MEDS: INSULIN ASPART (*BKC) 100 UNITS/ML SUB-Q ×2 (12:29→16:44)
--- NOTE | 2022-12-11 12:30 | PM.IMPN ---
Progress Note: A&P Assessment and Plan (1) Cellulitis of right ring finger: Code(s): L03.011 - Cellulitis of right finger Status: Acute Assessment and Plan: Patient believes he possibly got stuck by a the worn on his right ring finger approximately 1 week for ED arrival. Four days before arrival he began to notice swelling and redness in the finger and 24 hours per arrival he was seen in the ED due to finger turning dark purple/black and using bloody fluid. As per diabetic cellulitis protocol the patient was started on cefepime, Flagyl vancomycin. Blood cultures are pending Dr. Grimaldo has agreed to see patient and I appreciate his recommendations X-ray of the finger shows no radiopaque foreign body. The patient does not appear to be septic patient's heart rate and blood pressure within normal limits. However his CRP is elevated. Repeat lactic back within normal limits. Continue with analgesic 12/11 Patient undergoing I and D. CRP trending down. (2) Hyperlipidemia associated with type 2 diabetes mellitus: Code(s): E11.69 - Type 2 diabetes mellitus with other specified complication; E78.5 - Hyperlipidemia, unspecified Status: Acute Assessment and Plan: Continue with fenofibrate and [place] 3 Continue with simvastatin (3) Diabetes: Code(s): E11.9 - Type 2 diabetes mellitus without complications Status: Acute Assessment and Plan: Accu-Cheks AC and HS with moderate sliding scale insulin. Hypoglycemic protocol. Hemoglobin A1c 10.6, patient states sugars normally run in the 140s to 150s Continue with Jardiance (4) Hypertension: Code(s): I10 - Essential (primary) hypertension Status: Acute Assessment and Plan: Continue with metoprolol. Hold metoprolol if heart rate less than 50 and or map less than 65. (5) Gout: Code(s): M10.9 - Gout, unspecified Status: Acute Assessment and Plan: Continue with allopurinol Subjective Date/time seen: 12/11/22 12:30 Interval history: I was able to see patient before he went down for surgery today to get an I&D. Patient's pain is well controlled with IV Tylenol. Patient states that his finger does feel tight and has some throbbing in it. Patient denies body aches, chills, nausea and vomiting. Review of Systems Review of Systems: All systems reviewed & are unremarkable except as noted in HPI and below Exam Narrative: GENERAL: Comfortable, no acute distress HENMT: moist mucous membranes EYES: EOM intact b/l NECK: no lymphadenopathy RESPIRATORY: clear to auscultation CARDIO: RRR GI: soft, nontender, bowel sounds present SKIN: no rashes EXTREMITIES: Right ring finger erythema and edema extending to the MCP with dark purple skin intent above the DIP. Erythema has remained within marker borders. Pinpoint hole in the middle of pad. Objective Data Vital Signs Vital Signs: Vital Signs - 24 hr 12/10/22 14:00 12/10/22 19:49 12/10/22 22:00 Temperature 97.1 F L 97.3 F L Pulse Rate 55 L 64 Respiratory Rate 22 H 18 Blood Pressure 130/76 127/72 Pulse Oximetry 99 96 Oxygen Delivery Room Air 12/11/22 06:00 12/11/22 07:57 12/11/22 08:40 Temperature 96.1 F L Pulse Rate 55 L 63 63 Respiratory Rate 20 Blood Pressure 160/76 H Pulse Oximetry 98 95 Oxygen Delivery Room Air 12/11/22 10:54 12/11/22 08:00 12/11/22 11:15 Temperature 97.4 F L Pulse Rate 62 61 Respiratory Rate 16 16 Blood Pressure 109/60 138/71 Pulse Oximetry 96 94 Oxygen Delivery Room Air Room Air Room Air 12/11/22 11:25 12/11/22 11:35 12/11/22 11:42 Temperature Pulse Rate 61 60 60 Respiratory Rate 16 16 16 Blood Pressure 139/79 129/73 123/71 Pulse Oximetry 94 94 94 Oxygen Delivery Room Air Room Air Room Air 12/11/22 12:11 Temperature 96.8 F L Pulse Rate 80 Respiratory Rate 18 Blood Pressure 126/70 Pulse Oximetry 98 O
[2022-12-11 16:28] LABS: Glucose Point of Care 222 mg/dl (65-105)
[2022-12-11] MEDS: ACETAMINOPHEN 325 MG TABLET 650 MG PO (18:48)
[2022-12-11 19:55] LABS: Glucose Point of Care 206 mg/dl (65-105)
[2022-12-11] MEDS: KETOROLAC 15 MG/ML VIAL (*BKC) IV PUSH (20:49)
[2022-12-12 03:20] VITALS: O2SAT 98
[2022-12-12 06:00] VITALS: BP 136/71; PULSE 62; RESP 20; TEMP 35.9; O2SAT 99
[2022-12-12] MEDS: metroNIDAZOLE 500 MG/ISO 100ML 500 MG/100 ML BAG 100 MG IVPB (06:22)
[2022-12-12 06:35] LABS: Hemoglobin 13.4 g/dL (14.0-18.0); Immature Platelet Fraction Pct 4.1 % (0.9-11.2); Mean Corpuscular HGB Conc 32.7 g/dl (32-36); Mean Corpuscular Hemoglobin 29.6 pg (26-34); Mean Corpuscular Volume 90.7 fl (80-100); Mean Platelet Volume 10.4 fl (7.4-10.4); Platelet Count Result 151 k/mm3 (150-375); Red Blood Count 4.52 M/mm3 (4.6-6.20); Red Cell Distribution Width 14.6 % (11.5-14.5); White Blood Count 6.2 K/mm3 (4.5-10.0)
[2022-12-12 06:52] LABS: Alanine Aminotransferase 18 U/L (6-50); Albumin Level 3.6 g/dL (3.5-5.1); Alkaline Phosphatase 41 U/L (38-126); Anion Gap 6 mmol/L (8-16); Aspartate Amino Transferase 21 U/L (17-59); Bilirubin,Total 0.6 mg/dL (0.2-1.3); Blood Urea Nitrogen 15 mg/dL (9-20); CRP 3.2 mg/dL (<1.0); Calcium 8.4 mg/dL (8.4-10.2); Carbon Dioxide 26 mmol/L (22-30); Chloride 104 mmol/L (98-107); Estimated CRCL calculation 75 ml/min; Estimated Glomerular Filt Rate > 60; Glucose 184 mg/dL (65-110); Potassium 4.2 mmol/L (3.4-5.0); Sodium 136 mmol/L (137-145)
[2022-12-12 07:39] LABS: Glucose Point of Care 184 mg/dl (65-105)
[2022-12-12] MEDS: SIMVASTATIN 20 MG TABLET 40 MG PO (08:55)
[2022-12-12 08:56] VITALS: PULSE 76
[2022-12-12] MEDS: METOPROLOL SUCCINATE EXT REL 25 MG TABCR PO (08:56)
[2022-12-12] MEDS: allopurinoL 300 MG TABLET PO (08:56)
[2022-12-12] MEDS: EMPAGLIFLOZIN 10 MG TABLET PO (08:56)
[2022-12-12] MEDS: ACETAMINOPHEN 325 MG TABLET 650 MG PO ×2 (08:56→16:36)
[2022-12-12] MEDS: ASPIRIN 81 MG ENTERIC TABLET PO (08:56)
[2022-12-12] MEDS: OMEGA 3 POLYUNSAT FATTY ACIDS 1 GM CAP PO (08:56)
[2022-12-12] MEDS: FENOFIBRATE 160 MG TABLET PO (08:56)
[2022-12-12] MEDS: metFORMIN HCL 500 MG TABLET 1000 MG PO ×2 (08:56→16:36)
[2022-12-12 10:51] VITALS: O2SAT 95
[2022-12-12] MEDS: CEFEPIME 2 GM/NS 50 ML 2 GM/50 ML BAG IVPB ×2 (11:03→21:25)
[2022-12-12 12:01] LABS: Glucose Point of Care 213 mg/dl (65-105)
[2022-12-12 12:14] LABS: Toxigenic C. Diff NEGATIVE (NEGATIVE)
[2022-12-12] MEDS: INSULIN ASPART (*BKC) 100 UNITS/ML SUB-Q ×2 (12:17→16:40)
[2022-12-12] MEDS: SODIUM CHLORIDE 0.9% IV 1,000 ML 125 ML IV CONT ×2 (14:40→21:58)
[2022-12-12] MEDS: metroNIDAZOLE 250 MG TABLET 500 MG PO ×2 (14:40→21:26)
[2022-12-12 15:00] VITALS: BP 127/85; PULSE 51; RESP 16; TEMP 36.4; O2SAT 97
--- NOTE | 2022-12-12 15:42 | PM.IMPN ---
Progress Note: A&P Assessment and Plan (1) Cellulitis of right ring finger: Code(s): L03.011 - Cellulitis of right finger Status: Acute Assessment and Plan: Patient believes he possibly got stuck by a the worn on his right ring finger approximately 1 week for ED arrival. Four days before arrival he began to notice swelling and redness in the finger and 24 hours per arrival he was seen in the ED due to finger turning dark purple/black and using bloody fluid. As per diabetic cellulitis protocol the patient was started on cefepime, Flagyl vancomycin. Blood cultures are pending Dr. Grimaldo has agreed to see patient and I appreciate his recommendations X-ray of the finger shows no radiopaque foreign body. The patient does not appear to be septic patient's heart rate and blood pressure within normal limits. However his CRP is elevated. Repeat lactic back within normal limits. Continue with analgesic 12/11 Patient undergoing I and D. CRP trending down. 12/12 awaiting culture results. (2) Hyperlipidemia associated with type 2 diabetes mellitus: Code(s): E11.69 - Type 2 diabetes mellitus with other specified complication; E78.5 - Hyperlipidemia, unspecified Status: Acute Assessment and Plan: Continue with fenofibrate and [place] 3 Continue with simvastatin (3) Diabetes: Code(s): E11.9 - Type 2 diabetes mellitus without complications Status: Acute Assessment and Plan: Accu-Cheks AC and HS with moderate sliding scale insulin. Hypoglycemic protocol. Hemoglobin A1c 10.6, patient states sugars normally run in the 140s to 150s Continue with Jardiance Added lantus 17 units HS due to elevated blood sugar (4) Hypertension: Code(s): I10 - Essential (primary) hypertension Status: Acute Assessment and Plan: Continue with metoprolol. Hold metoprolol if heart rate less than 50 and or map less than 65. (5) Gout: Code(s): M10.9 - Gout, unspecified Status: Acute Assessment and Plan: Continue with allopurinol Subjective Date/time seen: 12/12/22 15:42 Interval history: Patient doing well today with no new complaints. Awaiting recommendations per plastics regarding antibiotic deceleration and discharge recommendations. Review of Systems Review of Systems: All systems reviewed & are unremarkable except as noted in HPI and below Exam Narrative: GENERAL: Comfortable, no acute distress HENMT: moist mucous membranes EYES: EOM intact b/l NECK: no lymphadenopathy RESPIRATORY: clear to auscultation CARDIO: RRR GI: soft, nontender, bowel sounds present SKIN: no rashes EXTREMITIES: Right ring finger erythema and edema extending to the MCP with dark purple skin intent above the DIP. Erythema has remained within marker borders. Pinpoint hole in the middle of pad. Objective Data Vital Signs Vital Signs: Vital Signs - 24 hr 12/11/22 21:59 12/11/22 20:20 12/12/22 03:20 Temperature 96.7 F L Pulse Rate 53 L Respiratory Rate 16 Blood Pressure 139/74 Pulse Oximetry 96 98 Oxygen Delivery Room Air Room Air 12/12/22 06:00 12/12/22 08:56 12/12/22 08:00 Temperature 96.7 F L Pulse Rate 62 76 Respiratory Rate 20 Blood Pressure 136/71 Pulse Oximetry 99 Oxygen Delivery Room Air 12/12/22 10:51 12/12/22 15:00 Temperature 97.6 F Pulse Rate 51 L Respiratory Rate 16 Blood Pressure 127/85 Pulse Oximetry 95 97 Oxygen Delivery Room Air Intake/Output Intake/Output: Intake & Output 12/09/22 12/10/22 12/11/22 12/12/22 23:59 23:59 23:59 23:59 Intake Total 50 4390 3620 2150 Output Total 150 150 Balance 50 4240 3470 2150 Meds/Results Medications: Active Medications Generic Name Dose Route Start Last Admin Trade Name Freq PRN Reason Stop Dose Admin Acetaminophen 650 mg 12/09/22 21:17 12/12/22 08:56 Acetaminophen 325 Mg Tablet PO
[2022-12-12] MEDS: DICYCLOMINE HCL 10 MG CAPSULE 20 MG PO (16:36)
[2022-12-12] MEDS: SACCHAROMYCES BOULARDII 250 MG CAPSULE PO (16:36)
[2022-12-12 17:31] LABS: Glucose Point of Care 218 mg/dl (65-105)
[2022-12-12 20:30] LABS: Glucose Point of Care 202 mg/dl (65-105)
[2022-12-12] MEDS: INSULIN GLARGINE (*BKC) 100 UNITS/ML 17 UNITS SUB-Q (21:23)
[2022-12-12 22:00] VITALS: BP 145/70; PULSE 50; RESP 18; TEMP 36.2; O2SAT 98
[2022-12-13] MEDS: metroNIDAZOLE 250 MG TABLET 500 MG PO (05:31)
[2022-12-13] MEDS: SODIUM CHLORIDE 0.9% IV 1,000 ML 125 ML IV CONT (05:37)
[2022-12-13 06:00] VITALS: BP 145/78; PULSE 53; RESP 16; TEMP 35.8; O2SAT 98
[2022-12-13 06:54] LABS: Hematocrit 42.3 % (42.0-52.0); Mean Corpuscular HGB Conc 33.1 g/dl (32-36); Mean Corpuscular Hemoglobin 29.1 pg (26-34); Mean Corpuscular Volume 87.9 fl (80-100); Mean Platelet Volume 10.7 fl (7.4-10.4); Platelet Count Result 161 k/mm3 (150-375); Red Blood Count 4.81 M/mm3 (4.6-6.20); Red Cell Distribution Width 14.5 % (11.5-14.5); White Blood Count 5.7 K/mm3 (4.5-10.0)
[2022-12-13 07:20] LABS: Alanine Aminotransferase 19 U/L (6-50); Albumin Level 3.7 g/dL (3.5-5.1); Alkaline Phosphatase 41 U/L (38-126); Anion Gap 6 mmol/L (8-16); Aspartate Amino Transferase 22 U/L (17-59); Bilirubin,Total 0.5 mg/dL (0.2-1.3); Blood Urea Nitrogen 12 mg/dL (9-20); CRP 2.1 mg/dL (<1.0); Calcium 8.7 mg/dL (8.4-10.2); Carbon Dioxide 27 mmol/L (22-30); Chloride 104 mmol/L (98-107); Estimated CRCL calculation 84 ml/min; Estimated Glomerular Filt Rate > 60; Glucose 154 mg/dL (65-110); Potassium 3.9 mmol/L (3.4-5.0); Sodium 137 mmol/L (137-145)
[2022-12-13 07:40] LABS: Glucose Point of Care 143 mg/dl (65-105)
[2022-12-13 08:27] VITALS: PULSE 80
[2022-12-13] MEDS: METOPROLOL SUCCINATE EXT REL 25 MG TABCR PO (08:27)
[2022-12-13] MEDS: FENOFIBRATE 160 MG TABLET PO (08:27)
[2022-12-13] MEDS: metFORMIN HCL 500 MG TABLET 1000 MG PO (08:28)
[2022-12-13] MEDS: EMPAGLIFLOZIN 10 MG TABLET PO (08:28)
[2022-12-13] MEDS: SACCHAROMYCES BOULARDII 250 MG CAPSULE PO (08:28)
[2022-12-13] MEDS: allopurinoL 300 MG TABLET PO (08:28)
[2022-12-13] MEDS: ASPIRIN 81 MG ENTERIC TABLET PO (08:28)
[2022-12-13] MEDS: SIMVASTATIN 20 MG TABLET 40 MG PO (08:28)
[2022-12-13] MEDS: OMEGA 3 POLYUNSAT FATTY ACIDS 1 GM CAP PO (08:28)
--- NOTE | 2022-12-13 10:17 | WPDPN ---
Progress Note: A&P Assessment and Plan (1) Felon of finger of right hand: Code(s): L03.011 - Cellulitis of right finger Status: Acute Assessment and Plan: Adequately drained. Responding to antibiotic treatment. Culture pending, but may continue to show no growth. Plan Wound redressed today. Does not need home dressing changes. Discharge home today on anti MRSA oral antibiotics. I suggest Bactrim for 10 days. F/U with Dr Grimaldo on Thursday12/19/22.. Time Spent With Patient Time with patient: 15 - 25 minutes Subjective Date/time seen: 12/13/22 10:17 Interval history: HD 5. POD 2. Finger feels better. Erythema subsiding. Exam Narrative: Swelling and erythema subsiding. Turgor returning to pad. Small sites of slough. No purulence. Both iglesia of Iodoform removed today. Redressed with Mepilex boarder pieces and gauze. Wound Culture: no growth at 2 days. Blood cx no growth. WBC has remained WNL. CRP down to 2. Objective Data Vital Signs Vital Signs: Vital Signs - 24 hr 12/12/22 10:51 12/12/22 15:00 12/12/22 19:54 Temperature 97.6 F Pulse Rate 51 L Respiratory Rate 16 Blood Pressure 127/85 Pulse Oximetry 95 97 Oxygen Delivery Room Air Room Air 12/12/22 22:00 12/13/22 06:00 12/13/22 08:27 Temperature 97.1 F L 96.4 F L Pulse Rate 50 L 53 L 80 Respiratory Rate 18 16 Blood Pressure 145/70 H 145/78 H Pulse Oximetry 98 98 Oxygen Delivery 12/13/22 08:00 Temperature Pulse Rate Respiratory Rate Blood Pressure Pulse Oximetry Oxygen Delivery Room Air Intake/Output Intake/Output: Intake & Output 12/10/22 12/11/22 12/12/22 12/13/22 23:59 23:59 23:59 23:59 Intake Total 4390 3620 4540 1910 Output Total 150 150 Balance 4240 3470 4540 1910 Meds/Results Medications: Active Medications Generic Name Dose Route Start Last Admin Trade Name Freq PRN Reason Stop Dose Admin Acetaminophen 650 mg 12/09/22 21:17 12/12/22 16:36 Acetaminophen 325 Mg Tablet PO 650 mg Q4H PRN Administration Mild Pain (1-3) or Fever Allopurinol 300 mg 12/11/22 09:00 12/13/22 08:28 Allopurinol 300 Mg Tablet PO 300 mg DAILY RIANNA Administration Aspirin 81 mg 12/11/22 09:00 12/13/22 08:28 Aspirin 81 Mg Enteric Tablet PO 81 mg DAILY RIANNA Administration Dextrose 12.5 gm 12/09/22 23:11 Dextrose 50% 25 Gm/50 Ml Syringe IV PUSH PRN PRN Hypoglycemia Protocol Dicyclomine HCl 20 mg 12/12/22 13:06 12/12/22 16:36 Dicyclomine Hcl 10 Mg Capsule PO 20 mg QID PRN Administration Abdominal Cramping/diarrhea Empagliflozin 10 mg 12/11/22 09:00 12/13/22 08:28 Empagliflozin 10 Mg Tablet PO 10 mg DAILY RIANNA Administration Fenofibrate 160 mg 12/11/22 09:00 12/13/22 08:27 Fenofibrate 160 Mg Tablet PO 160 mg DAILY RIANNA Administration Fish Oil 1 gm 12/11/22 09:00 12/13/22 08:28 [place] 3 Polyunsat Fatty Acids 1 Gm Cap PO 1 gm DAILY RIANNA Administration Glucagon 1 mg 12/09/22 23:11 Glucagon For Inj 1 Mg Vial IM PRN PRN Hypoglycemia Protocol Glucose 15 gm 12/09/22 23:11 Glucose Oral Gel 15 Gm Of Glucse In 37.5 Gm Tube PO PRN PRN Hypoglycemia Protocol Sodium Chloride 1,000 mls @ 125 mls/hr 12/09/22 21:20 12/13/22 05:37 Normal Saline Iv IV CONT 125 mls/hr .Q8H RIANNA Administration Cefepime HCl 2 gm in 50 mls @ 100 mls/hr 12/09/22 22:00 12/12/22 21:25 Maxipime 2 Gm/Ns 50 Ml IVPB 100 mls/hr Q12H RIANNA Administration Dextrose 1,000 mls @ 100 mls/hr 12/09/22 23:11 Dextrose 5% 1,000 Ml IVPB PRN PRN Hypoglycemia Protocol Vancomycin HCl 1,500 mg in 500 mls @ 250 mls/hr 12/13/22 00:00 12/13/22 00:49 Vancomycin 1,500 Mg/D5w 500 Ml IVPB 250 mls/hr Q12H RIANNA Administration Insulin Aspart 3 - 6 units 12/10/22 17:00 12/13/22 08:29 Insulin Aspart (*Bkc) 100 Units/Ml SUB-Q Not Given TIDWM RIANNA Pro
[2022-12-13] MEDS: CEFEPIME 2 GM/NS 50 ML 2 GM/50 ML BAG IVPB (10:37)
[2022-12-13] MEDS: ACETAMINOPHEN 325 MG TABLET 650 MG PO (10:40)
[2022-12-13 11:46] LABS: Glucose Point of Care 209 mg/dl (65-105)
[2022-12-13] MEDS: INSULIN ASPART (*BKC) 100 UNITS/ML SUB-Q (12:00)
--- NOTE | 2022-12-13 12:13 | PM.DS ---
DS: Admitting Diagnosis Discharge Date 12/13/22 Admitting Diagnosis skin abscess DS: Discharge Diagnosis Discharge Diagnosis (1) Cellulitis of right ring finger: Code(s): L03.011 - Cellulitis of right finger Status: Acute Assessment and Plan: Patient believes he possibly got stuck by a the worn on his right ring finger approximately 1 week for ED arrival. Four days before arrival he began to notice swelling and redness in the finger and 24 hours per arrival he was seen in the ED due to finger turning dark purple/black and using bloody fluid. As per diabetic cellulitis protocol the patient was started on cefepime, Flagyl vancomycin. Blood cultures no growth to date Dr. Grimaldo has agreed to see patient and I appreciate his recommendations X-ray of the finger shows no radiopaque foreign body. The patient does not appear to be septic patient's heart rate and blood pressure within normal limits. However his CRP is elevated. Repeat lactic back within normal limits. Continue with analgesic 12/11 Patient undergoing I and D. CRP trending down. 12/12 awaiting culture results. 12/13 Patient doing well today. CRP trending down. Patient cleared to discharge per Plastic surgery. Recommending 10 days of Bactrim as an outpatient and follow up in the office. (2) Hyperlipidemia associated with type 2 diabetes mellitus: Code(s): E11.69 - Type 2 diabetes mellitus with other specified complication; E78.5 - Hyperlipidemia, unspecified Status: Acute Assessment and Plan: Continue with fenofibrate and [place] 3 Continue with simvastatin (3) Diabetes: Code(s): E11.9 - Type 2 diabetes mellitus without complications Status: Acute Assessment and Plan: Accu-Cheks AC and HS with moderate sliding scale insulin. Hypoglycemic protocol. Hemoglobin A1c 10.6, patient states sugars normally run in the 140s to 150s Continue with Jardiance Added lantus 17 units HS due to elevated blood sugar (4) Hypertension: Code(s): I10 - Essential (primary) hypertension Status: Acute Assessment and Plan: Continue with metoprolol. Hold metoprolol if heart rate less than 50 and or map less than 65. (5) Gout: Code(s): M10.9 - Gout, unspecified Status: Acute Assessment and Plan: Continue with allopurinol DS: Summary Hospital Course Reason for hospitalization: Cellulitis of right ring finger Hospital Course: This is a 57-year-old male with a past medical history of diabetes, left lower extremity amputation, hypertension and hyperlipidemia the presented to the ED on 12/09/2022 with complaints of right ring finger pain. Patient had gone to the urgent care and received IM dose of Rocephin and was treated with Keflex. Patient took Keflex for 2 days and his finger was not getting any better. Patient does have history of osteomyelitis that resulted in the [id number] amputation of his left leg. Patient on presentation had normal white count and elevated CRP of 5.9. X-ray of the finger red is no radiopaque foreign body. Plastic surgeon Dr. Grimaldo was consulted on the patient. Patient was started on cefepime, vancomycin and Flagyl per antibiotic stewardship. Blood cultures drawn and negative to date. CRP trended down with antibiotic therapy. Dr. Grimaldo performed I and D on 12/11/2022 and patient tolerated procedure well. Wound cultures obtained during I and D. Patient continue on IV antibiotics. Patient's pain and cellulitis much better on the date of discharge, 12/13/2022. Dr. Grimaldo recommended follow-up in his office as an outpatient and continuation of Bactrim for 10 days. On the day of discharge patients labs and vital signs are stable and he is medically cleared for discharge. Time Spent with Patient Time attestation: Total time spent providing and/or coordinating discharge services: Exam Narrative: GENERAL: Comfo
== END 2022-12-13 12:45 | disposition home or self-care (01) ==
LOC: ANHED 21:17 → ANH3MEDSUR 12-10 04:22
PROVIDERS: Internal Medicine Critical Care Medicine; Nurse Practitioner; Plastic Surgery; Admitting Provider Internal Medicine; Emergency Provider Emergency Medicine; PCP Family Medicine; Visit Provider Internal Medicine
PROC: (CPT 26011; principal; 2022-12-11 11:30)
DX: L03.011 Cellulitis of right finger (principal); E11.65 Type 2 diabetes mellitus with hyperglycemia; I10 Essential (primary) hypertension; M10.9 Gout, unspecified; E78.5 Hyperlipidemia, unspecified; D69.6 Thrombocytopenia, unspecified; E87.1 Hypo-osmolality and hyponatremia; Z89.512 Acquired absence of left leg below knee; Z89.429 Acquired absence of other toe(s), unspecified side; F17.210 Nicotine dependence, cigarettes, uncomplicated; Z79.82 Long term (current) use of aspirin; Z79.84 Long term (current) use of oral hypoglycemic drugs; Z79.899 Other long term (current) drug therapy
CPT/HCPCS: 26011; 36415; 80048; 80053; 80202; 82948; 83036; 83605; 83735; 85025; 85027; 85055; 86140; 87040; 87070; 87075; 87205; 87493; 96365; 96366; 96374; 96375; 99285; A9270; G0378; J0131; J0692; J1815; J1885; J3370; J7030

== ENCOUNTER → 2023-01-28 11:40 | Outpatient (CLI) | payer OTHER, SELFPAY ==
--- NOTE | ~2023-01-28 | XR_ITS ---
EXAMINATION: XR finger 4th RT min 2V DATE: 01/28/2023 11:59 INDICATION: Felon with osteomyelitis at the right fourth digit TECHNIQUE: Dorsal palmar, lateral and 2 oblique views of the right fourth digit were obtained COMPARISON: 12/09/2022 FINDINGS: Bone alignment is normal. Prominent new osteolysis at the tuft and palmar aspect of the neck of the f ourth distal phalanx consistent with osteomyelitis. No fracture. Mild polyarticular osteoarthritis at the third-fifth distal interphalangeal joints. IMPRESSION: 1. Osteomyelitis at the distal aspect of the right fourth distal phalanx Reviewed, dictated and finalized at location B.
== END ==
PROVIDERS: PCP Family Medicine; Visit Provider Plastic Surgery
DX: M86.141 Other acute osteomyelitis, right hand (principal)
CPT/HCPCS: 73140

== ENCOUNTER → 2023-02-20 09:34 | Outpatient (CLI) | payer OTHER, SELFPAY ==
--- NOTE | ~2023-02-20 | XR_ITS ---
EXAMINATION: XR finger 4th RT min 2V DATE: 02/20/2023 09:47 INDICATION: Osteomyelitis TECHNIQUE: Dorsal palmar, lateral and 2 oblique views of the right fourth digit were obtained COMPARISON: 01/28/2023 FINDINGS: Interval progression of osteolysis with increasing loss of bone stock at the previously fragmented tu ft of the right fourth distal phalanx. There has however been no significant more proximal progressio n into the diaphysis. No other regions of osteolysis. Bone alignment is normal. No no acute fracture. Old healed fracture deformity at the fourth metacarpal. Again seen is mild polyarticular osteoarthri tis at the third-fifth distal interphalangeal joints. IMPRESSION: 1. Osteomyelitis with increased osteolysis at the tuft of the right fourth distal phalanx right witho ut significant more proximal advancement. Reviewed, dictated and finalized at location A. IMPRESSION: 1. Osteomyelitis with increased osteolysis at the tuft of the right fourth dist al phalanx right without significant more proximal advancement.
== END ==
PROVIDERS: PCP Family Medicine; Visit Provider Plastic Surgery
DX: M86.141 Other acute osteomyelitis, right hand (principal)
CPT/HCPCS: 73140

== ENCOUNTER → 2023-03-30 09:11 | Outpatient (CLI) | payer OTHER, SELFPAY ==
--- NOTE | ~2023-03-30 | XR_ITS ---
EXAMINATION: XR finger 4th RT min 2V DATE: 03/30/2023 09:31 INDICATION: Osteomyelitis at the right fourth distal phalanx TECHNIQUE: Dorsal palmar, lateral and 2 oblique views of the right fourth digit were obtained COMPARISON: None FINDINGS: There is increasing calcification with smoother peripheral margins though not definitively corticated at the previously reported tuft of the right fourth distal phalanx consistent with likely reparative response to prior osteomyelitis. Bone alignment remains normal. Old healed fracture deformity of the right fifth metacarpal. No acute fracture. Polyarticular osteoarthritis, moderate severity at the fo urth and fifth distal interphalangeal joints and mild at a few of the additional visualized interphal angeal joints. IMPRESSION: 1. Increasing calcification at the previous eroded tuft of the right fourth distal phalanx suggesting healing response to earlier osteomyelitis. Reviewed, dictated and finalized at location B. IMPRESSION: 1. Increasing calcification at the previous eroded tuft of the right fourth dis jayy phalanx suggesting healing response to earlier osteomyelitis.
== END ==
PROVIDERS: PCP Family Medicine; Visit Provider Plastic Surgery
DX: M86.141 Other acute osteomyelitis, right hand (principal)
CPT/HCPCS: 73140

== ENCOUNTER → 2023-05-01 10:18 | Outpatient (CLI) | payer OTHER, SELFPAY ==
--- NOTE | ~2023-05-01 | XR_ITS ---
EXAMINATION: XR finger 4th RT min 2V DATE: 05/01/2023 10:33 INDICATION: Osteomyelitis at the right fourth digit TECHNIQUE: Dorsal palmar, lateral and 2 oblique views of the right fourth digit were obtained COMPARISON: 03/30/2023 and 02/20/2023 FINDINGS: No significant change in appearance of the tuft of the right fourth distal phalanx where there was pr eviously a greater degree of lucency. The margin of the tuft remains without a clearly discernible co rticated margin. No new erosions or osteolysis. Old healed fracture deformity at the distal diaphysis of the right fifth metacarpal. Alignment is otherwise normal. No acute fracture. Polyarticular osteo arthritis, moderate severity at the fourth and fifth distal interphalangeal joints and mild at the re maining visualized interphalangeal joints. IMPRESSION: 1. Chronic osteomyelitis at the tuft of the right fourth distal phalanx which appears unchanged since the most recent study but with increasing calcifications compared with earlier study dated 02/20/2023 consistent with healing. Reviewed, dictated and finalized at location A. IMPRESSION: 1. Chronic osteomyelitis at the tuft of the right fourth distal phalanx which a ppears unchanged since the most recent study but with increasing calcifications compared with earlier study dated 02/20/2023 consistent with healing.
== END ==
PROVIDERS: PCP Family Medicine; Visit Provider Plastic Surgery
DX: M86.141 Other acute osteomyelitis, right hand (principal)
CPT/HCPCS: 73140

== ENCOUNTER 2023-06-10 15:02 | Emergency (ER) | payer OTHER, SELFPAY ==
[2023-06-10 15:03] VITALS: BP 141/78; PULSE 75; RESP 18; TEMP 36.1; O2SAT 98
--- NOTE | 2023-06-10 15:39 | ED.SKABFB ---
HPI - Skin/Abscess/Foreign Bdy General Chief complaint: Skin/Abscess/Foreign Body Stated complaint: left side soreness Time Seen by Provider: 06/10/23 15:11 History of Present Illness HPI narrative: 58-year-old male presents to the emergency room for evaluation of a rash that appeared to his chest wall yesterday. Patient states the rash was preceded by pain in the same location that radiated around his flank. Related Data Home Medications Medication Instructions Recorded Confirmed allopurinol 300 mg tablet 300 mg PO DAILY 12/09/22 12/09/22 aspirin 81 mg tablet,delayed 81 mg PO DAILY 12/09/22 12/09/22 release empagliflozin 10 mg tablet 10 mg PO DAILY 12/09/22 12/09/22 (Jardiance) fenofibrate 160 mg tablet 160 mg PO DAILY 12/09/22 12/09/22 metformin 1,000 mg tablet 1,000 mg PO BID 12/09/22 12/09/22 metoprolol succinate 25 mg 25 mg PO DAILY 12/09/22 12/09/22 tablet,extended release 24 hr omega-3 acid ethyl esters 1 gram 1 g PO DAILY 12/09/22 12/09/22 capsule simvastatin 40 mg tablet 40 mg PO DAILY 12/09/22 12/09/22 Allergies Allergy/AdvReac Type Severity Reaction Status Date / Time No Known Allergies Allergy Verified 06/10/23 15:14 Review of Systems Constitutional: Constitutional: Reports no additional constitutional complaints Eyes: Eyes: Reports no additional eye complaints ENT: Reports system reviewed and no additional complaints, except as documented Cardiovascular: Cardiovascular: Reports no additional cardiovascular complaints Respiratory: Respiratory: Reports no additional respiratory complaints Gastrointestinal: Gastrointestinal: Reports no additional gastrointestinal complaints Musculoskeletal: Musculoskeletal: Reports no additional musculoskeletal complaints Integumentary/Breasts: Skin/Breast: Reports as per HPI and Reports rash PMFSH Past Medical History Medical History Amputated toe Below knee amputation left bka Diabetes Gout Hyperlipidemia associated with type 2 diabetes mellitus Hypertension Surgical History Surgical History H/O eye surgery Hx of cataract extraction Family History Family History Mother Diabetes mellitus Hyperlipidemia associated with type 2 diabetes mellitus Father Diabetes mellitus Hyperlipidemia associated with type 2 diabetes mellitus Hypertension Lung cancer Sibling Cerebrovascular accident Social History Social History Social History: 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 He lives with his . He has 4 children . His is the durable power erisa attorney for healthcare Code status full code Smoking packs per day: 0.75 Smoking cigarettes per day: 15.0 Years smoked: 15 Smoking pack-years: 11.25 Smoking status: Current every day smoker Tobacco type: cigarettes Alcohol intake: current Lack of Transportation: No Lack of Food: Never True Current Housing: I Have Housing Concerned About Future Housing: No Difficulty Paying Gas/Electric Bills: No Difficulty Paying for Meds: No Currently Unemployed: No Education: Associate Degree Difficulty w/ Childcare or Family Care: No Spiritual care concerns: No Exam Const: General: no acute distress and alert Eyes: Pupils: Equal, round and reactive pupils present EOM: EOMs intact bilaterally Chest: Chest palpation & inspection: normal inspection of the chest Resp: Effort & Inspection: normal respiratory effort Auscultation: clear to auscultation bilaterally Cardio: Rate: regular rate Rhythm: regular rhythm Skin: Other: Erythematous vesicular rash to the left anterior chest wall distributed in a dermatomal pattern Neuro: General: patient oriented x3 and moves all extremities
[2023-06-10 16:00] VITALS: BP 144/78; PULSE 88; RESP 14; O2SAT 99
== END 2023-06-10 16:03 | disposition home or self-care (01) ==
LOC: ANHED 15:48
PROVIDERS: Emergency Provider Nurse Practitioner Family; PCP Family Medicine
DX: B02.9 Zoster without complications (principal); E11.69 Type 2 diabetes mellitus with other specified complication; E78.5 Hyperlipidemia, unspecified; I10 Essential (primary) hypertension; M10.9 Gout, unspecified; F17.210 Nicotine dependence, cigarettes, uncomplicated; Z89.512 Acquired absence of left leg below knee; Z89.429 Acquired absence of other toe(s), unspecified side; Z98.49 Cataract extraction status, unspecified eye; Z79.84 Long term (current) use of oral hypoglycemic drugs; Z79.82 Long term (current) use of aspirin
CPT/HCPCS: 99283

== ENCOUNTER 2025-02-06 17:01 | Emergency (ER) | payer OTHER, SELFPAY ==
[2025-02-06 17:04] VITALS: BP 173/72; PULSE 52; RESP 16; TEMP 36.4; O2SAT 96
--- OUTSIDE RECORDS SUMMARY | 2025-02-06 17:04 | XMS_ITS | Referral Summary ---
Author Organization [address] Address [address] [address] Care Team Providers Care Catalyst Operator Gasoline Name Role Phone Elan Calderon MD Primary Care Provid er Cecil Jones MD Unavailable [phone] Encounters Date Type Department Care Team Description 02/01/2025 Telephone [facility] Family Medicine [address] [address] Elan Calderon MD Medical Question/Miscellaneous from Last 3 Months Allergies No known active allergies Medications DULoxetine DR (CYMBALTA) 60 mg capsuleIndications :Paresthesia,Diabe tic polyneuropathy associated with type 2 diabetes mellitus (HCC) Take 1 capsule (60 mg total) by mouth daily 90 capsule 3 02/23/20 Active Additional Information Patient not taking.Informant: Self, Reported on 06/16/2024 exenatide ER (BYDUREON) 2 mg suspension,extende d rel reconIndications:t ype 2 diabetes mellitus 2 mg every 7 days injection Active alcohol swabs (Alcohol Wipes) pads, medicated Use as directed. 100 each 08/21/20 Active blood glucose strip-disp meter kit Use as directed. 1 kit 08/21/20 Active OneTouch Verio test strips strip Use as directed up to four times a day. 100 each 1 08/21/20 21 Active lancets misc Use as directed up to 4 times a day. 100 each 1 08/21/20 21 Active OneTouch Verio Meter mis 08/22/20 21 Active blood-glucose meter,continuous (Dexcom G6 [employer] Dean) miscIndications:Un controlled type 2 diabetes mellitus with hyperglycemia (HCC),Diabetic polyneuropathy associated with type 2 diabetes mellitus (HCC) Use as directed 1 each 09/10/19 22 Active blood-glucose transmitter deviceIndications: Uncontrolled type 2 diabetes mellitus with hyperglycemia (HCC),Diabetic polyneuropathy associated with type 2 diabetes mellitus (HCC) Replace quarterly 1 each 3 09/10/19 22 Active pen needle, diabetic (Unifine Pentips) 32 gauge x 5/32 needle Use to inject insulin QID 400 each 3 10/15/19 22 Active pregabalin (LYRICA) 50 mg capsuleIndications :amputation Take 2 capsules (100 mg total) by mouth 2 (two) times a day Active blood-glucose sensor deviceIndications: Uncontrolled type 2 diabetes mellitus with hyperglycemia (HCC),Diabetic polyneuropathy associated with type 2 diabetes mellitus (HCC) Replace sensor every 10 days 10 each 3 01/16/20 22 Active benzonatate (TESSALON) 200 mg capsule Take 1 capsule (200 mg total) by mouth 3 (three) times a day as needed for cough 60 capsule 05/17/20 22 Active Additional Information Patient not taking.Reported on 06/16/2024 omega 1-glj-qfy-fish oil 1,000 mg (120 mg-180 mg) capsule Take 2 capsules (2,000 mg total) by mouth daily 180 capsule 3 09/08/19 23 Active metoprolol XL (TOPROL-XL) 25 mg extended release tabletIndications: Benign essential tremor Take 1 tablet (25 mg total) by mouth daily 90 tablet 3 12/21/19 24 Active empagliflozin (Jardiance) 10 mg tabletIndications: Uncontrolled type 2 diabetes mellitus with hyperglycemia (HCC) Take 1 tablet (10 mg total) by mouth daily 90 tablet 3 01/04/20 24 Active levoFLOXacin (LEVAQUIN) 750 mg tablet TAKE 1 TABLET BY MOUTH EVERY DAY FOR 7 DAYS 04/04/20 24 Active gabapentin (NEURONTIN) 300 mg capsuleIndications :Neuropathic Pain Take 1 capsule (300 mg total) by mouth 3 (three) times a day 90 capsule 11 06/16/20 24 025 Active icosapent ethyL (VASCEPA) 1 gram capsule TAKE 2 CAPSULES BY MOUTH EVERY DAY 180 capsule 3 09/09/19 25 Active fenofibrate (TRIGLIDE) 160 mg tabletIndications: Dyslipidemia TAKE 1 TABLET BY MOUTH EVERY DAY 90 tablet 3 09/26/19 25 Active allopurinoL (ZYLOPRIM) 300 mg tabletIndications: Idiopathic chronic gout of multiple sites without tophus TAKE 1 TABLET BY MOUTH EVERY DAY 90 tablet 3 09/26/19 25 Active simvastatin (ZOCOR) 40 mg tabletIndications: Dyslipidemia TAKE 1 TABLET BY MOUTH EVERY DAY AT NIGHT 90 tablet 3 09/26/19 25 Active metFORMIN (GLUCOPHAGE) 1,000 mg tabletIndications: Uncontrolled type 2 diabetes mellitus with hyperglycemia (HCC) TAKE 1 TABLET BY MOUTH TWICE A DAY 180 tablet 3 09/26/19 25 Active aspirin 81 mg enteric coated tabletIndications: Benign essential hypertension TAKE 1 TABLET BY MOUTH EVERY DAY 90 tablet 3 09/26/19 25 Active Active Problems Problem Noted Date Diagnosed Date 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 Patient recently received his prosthesis and will begin gait training soon. He has no open ulcerations of either lower extremity. Plan: Began utilizing left lower extremity prosthesis for ambulation needs. Patient follow-up on as-needed basis. Osteomyelitis of left foot 10/31/2021 Assessment & Plan (10/31/2021 8:50 PM SHEAR TENDER): Vanc and unasyn started in ER, will switch unasyn to cefepime for pseudomonal coverage. Vascular surgery consulted in eR Sepsis 08/22/2021 Abscess of left foot 08/22/2021 Assessment & Plan (09/06/2021 1:37 PM SHEAR TENDER): Impression: Patient is status post incision drainage abscess of left foot, debridement of left foot, and left 1st and 2nd toe amputation. He is undergoing wound VAC therapy and is tolerating well. Wound bed is pink with yellow slough tissue noted to the wound bed edges. Granulation tissue was also noted. Maceration surrounding wound bed where wound VAC was applied. Patient is currently on antibiotics. Surgical debridement site does not appear infected. Plan: Continue antibiotic therapy. Continue wound VAC therapy. Patient to follow-up in 2 weeks. BLANCA (acute kidney injury) 08/22/2021 Hyponatremia 08/15/2021 Gangrene of left foot 08/14/2021 CHARITY on CPAP 08/14/2021 Assessment & Plan (10/31/2021 8:50 PM SHEAR TENDER): Pt may use own cpap Tobacco dependence due to cigarettes 08/14/2021 Chronic cervical radiculopathy 02/22/2021 Benign essential tremor 11/22/2018 Dyslipidemia 11/06/2017 Assessment & Plan (10/31/2021 8:55 PM SHEAR TENDER): Cont statin Benign essential hypertension 07/17/2016 Diabetic neuropathy 07/17/2016 Assessment & Plan (10/31/2021 8:50 PM SHEAR TENDER): Cont home meds Idiopathic gout 07/17/2016 Paresthesia 07/17/2016 Testicular hypofunction 07/17/2016 Inadequately controlled diabetes mellitus 2015 Assessment & Plan (10/31/2021 8:51 PM SHEAR TENDER): Cont lantus, SS coverage Osteomyelitis of great toe of left foot Encounter for management of wound VAC Immunizations Immunization Administration Dates Next Due Influenza, Quadrivalent, Spl it, Preservative Free, Intramuscular 07/24/2023,08/22/2021,08/01/2020 Influenza, Unspecified 05/31/2022 [employer] SARS-CoV-2 Monovalent Vaccination (12+ Yrs) PURPLE 12/04/2020,11/12/2020 Pneumococcal Conjugate Pcv20 09/02/2023 Tdap 12/20/2019 ZOSTER Recombinant 02/22/2021 Social History Tobacco Use Types Packs/Day Years Used Date Smoking Tobacco: Former Cigarettes Q uit: 2020 Smokeless Tobacco: Never Tobacco Cessation:Counseling Given: Not Answered Alcohol Use Standard Drinks/Week Comments Yes 0 (1 standard drink = 0.6 oz pur e alcohol) AUDIT-C Answer Date Recorded Q1: How often do you have a drink containing alc ohol? Monthly or less 09/02/2023 Q2: How many drinks containi ng alcohol do you have on a typical day when you are drinking? 1 or 2 09/02/2023 Q3: How often do you have si x or more drinks on one occasion? 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 [employer] Not on file Not on file Not on file Last Filed Vital Signs Vital Sign Reading Time Taken Comments Blood Pressure 124/62 06/16/2024 3:58 PM CDT Pulse 68 06/16/2024 3:58 PM CDT Temperature 37.1 C (98.7 F) 01/15/2024 1:40 PM CDT Respiratory Rate 18 01/15/2024 1:40 PM CDT Oxygen Saturation 95% 06/16/2024 3:58 PM CDT Inhaled Oxygen Concentration - - Weight 81.6 kg (180 lb) 06/16/2024 3:58 PM CDT Height 175.3 cm (5' 9) 06/16/2024 3:58 PM CDT Body Mass Index 26.58 06/16/2024 3:58 PM CDT Plan of Treatment Not on file Procedures Procedure Name Priority Date/Time Associated Diagnosis Comments HM DIABETES EYE EXAM Routine 09/26/2024 HEMOGLOBIN A1C Routine 01/26/2024 3:50 PM CDT Diabetic polyneuropathy associated with type 2 diabetes mellitus (HCC) EGFR Routine 11/11/2021 4:43 AM CDT HEPATITIS C ANTIBODY Routine 03/26/2021 7:35 AM CDT LIPID PANEL Routine 03/26/2021 7:35 AM CDT ALBUMIN CREATININE RATIO, URINE Routine 03/26/2021 7:35 AM CDT PSA SCREEN Routine 03/26/2021 7:35 AM CDT COLONOSCOPY Routine 01/17/2020 DIABETES FOOT EXAM Routine 11/22/2018 from Last 3 Months or Most Recently Relevant to Health Maintenance Results * DIABETES EYE EXAM (09/26/2024) SCRIBED DIABETIC DILATED EYE EXAM Abnormal Historical Provider HEALTH MAINTENANCE Final Result * (ABNORMAL) Hemoglobin A1c (01/26/2024 3:50 PM CDT) Hgb A1C 10.4(H) 4.0 - 5.6 % Estimated Average Glucose 252 mg/dL [facility] Comment: The ADA recommends reporting an estimated Average Glucose (eAG) with all Hemoglobin A1c results using the equation derived from a study of 507 normal and diabetic adults. Minority populations were underrepresented and children were not included. (Diabetes Care 31:5972-7439, 2008). The eAG is not equivalent to a fasting glucose. Blood 01/26/2024 3:50 PM CDT 01/26/2024 5:33 PM CDT Shabbir Arndt MD LAB BLOOD ORDERABLES Final Resul t [facility] [address] [facility] Department [place] [address] * eGFR (11/11/2021 4:43 AM CDT) eGFR 99 mL/min/1. 73 m2 [facility] Comment: Interpretive Data Reference Interval Normal >/= 90 mL/min/1.73m2 Mildly decreased* 60 - 89 mL/min/1.73m2 Mildly to moderately decreased 45 - 59 mL/min/1.73m2 Moderately to severely decreased 30 - 44 mL/min/1.73m2 Severely decreased 15 - 29 mL/min/1.73m2 Kidney Failure < 15 mL/min/1.73m2 *Relative to young adult level Estimated glomerular filtration rate is determined by the 2020 CKD-EPI equation recommended by the National Kidney Foundation (A Unifying Approach to GFR Estimation: Recommendations of the NKF-ASK Task Force on Reassessing the Inclusion of Race in Diagnosing Kidney Disease, JASN 2020). The CKD-EPI equation should not be used for patients with unstable renal function and has not been validated in children and those over 70. Current interpretive data was last reviewed 2021. Blood 11/11/2021 4:43 AM CDT 11/11/2021 6:01 AM CDT us Cecil Jones MD LAB BLOOD ORDERABLES Final Result Performing Organization Address City/[facility]/ZIP Co de Phone Number [facility] [address] [facility] Department [place] [address] * PSA screen (03/26/2021 7:35 AM CDT) Pathologist [facility] [place] PSA 0.5 < OR = 4.0 ng/mL [facility] Comment: The total PSA value from this assay system is standardized against the WHO standard. The test result will be approximately 20% lower when compared to the equimolar-standardized total PSA (Elizabeth Fortunato). Comparison of serial PSA results should be interpreted with this fact in mind. This test was performed using the Siemens chemiluminescent method. Values obtained from different assay methods cannot be used interchangeably. PSA levels, regardless of value, should not be interpreted as absolute evidence of the presence or absence of disease. 03/26/2021 7:35 AM CDT 03/26/2021 7:38 AM CDT Narrative [facility] - 03/27/2021 1:46 PM CDT FASTING:YES FASTING: YES us Elan Calderon MD LAB BLOOD ORDERABLES Final Result [facility] [address] [place] [address] * Hepatitis C antibody (03/26/2021 7:35 AM CDT) Hep C Ab NON-REACTI VE NON-REACT TAYLOR [facility] SIGNAL TO CUT-OFF 0.01 <1.00 [facility] Comment: HCV antibody was non-reactive. There is no laboratory evidence of HCV infection. In most cases, no further action is required. However, if recent HCV exposure is suspected, a test for HCV RNA (test code 74090) is suggested. For additional information please refer to http://education.[employer]/faq/JUZ08a4 (This link is being provided for informational/ educational purposes only.) 03/26/2021 7:35 AM CDT 03/26/2021 7:38 AM CDT Narrative [facility] - 03/27/2021 1:46 PM CDT FASTING:YES FASTING: YES Ealn Calderon MD LAB MICROBIOLOGY - G ENERAL ORDERABLES Final Result Performing Organization Address City/[facility] de Phone Number [facility] [address] [facility] [place] [address] * Albumin Creatinine Ratio, Urine (03/26/2021 7:35 AM CDT) Pathologist [facility] [place] Creatinine, ur 56 20 - 320 mg/dL [facility] Microalbumin, ur 0.2 See Note: mg/dL [facility] Comment: Reference Range: Reference Range Not established Microalbumin/creat ratio 4 <30 mcg/mg creat [facility] Comment: The ADA defines abnormalities in albumin excretion as follows: Category Result (mcg/mg creatinine) Normal <30 Microalbuminuria 30-299 Clinical albuminuria > OR = 300 The ADA recommends that at least two of three specimens collected within a 3-6 month period be abnormal before considering a patient to be within a diagnostic category. 03/26/2021 7:35 AM CDT 03/26/2021 7:38 AM CDT Narrative [facility] - 03/27/2021 1:46 PM CDT FASTING:YES FASTING: YES Elan Calderon MD LAB URINE ORDERABLES Final Result [facility] [address] [place] [address] * (ABNORMAL) Lipid panel (03/26/2021 7:35 AM CDT) Cholesterol 222(H) <200 mg/dL [facility] HDL 41 > OR = 40 mg/dL [facility] Triglycerides 679(H) <150 mg/dL [facility] Comment: If a non-fasting specimen was collected, consider repeat triglyceride testing on a fasting specimen if clinically indicated. Jin et al. J. of Clin. Lipidol. 2015;9:129-169. There is increased risk of pancreatitis when the triglyceride concentration is very high (> or = 500 mg/dL, especially if > or = 1000 mg/dL). Jin et al. J. of Clin. Lipidol. 2015;9:129-169. LDL mg/dL (calc) [facility] Comment: LDL cholesterol not calculated. Triglyceride levels greater than 400 mg/dL invalidate calculated LDL results. Reference range: <100 Desirable range <100 mg/dL for primary prevention; <70 mg/dL for patients with CHD or diabetic patients with > or = 2 CHD risk factors. LDL-C is now calculated using the Earl-Moreno calculation, which is a validated novel method providing better accuracy than the Friedewald equation in the estimation of LDL-C. Earl LOPEZ et al. AUDREY. 2013;310(19): 5673-3340 (http://education.[employer].Sarsys/faq/QNX709) Chol/HDL ratio 5.4(H) <5.0 (calc) [facility] Non-HDL, (LDL+VLDL) 181(H) <130 mg/dL (calc) [facility] Comment: For patients with diabetes plus 1 major ASCVD risk factor, treating to a non-HDL-C goal of <100 mg/dL (LDL-C of <70 mg/dL) is considered a therapeutic option. 03/26/2021 7:35 AM CDT 03/26/2021 7:38 AM CDT Narrative [facility] - 03/27/2021 1:46 PM CDT FASTING:YES FASTING: YES Elan Calderon MD LAB BLOOD ORDERABLES Final Result [facility] [address] [address] * Colonoscopy (01/17/2020) Anatomical Region Laterality Modality Other Historical Provider ENDOSCOPY PROCEDURES Nadiya l Result * DIABETES FOOT EXAM (11/22/2018) Diabetic Foot Exam Normal Historical Provider HEALTH MAINTENANCE Final Result from Last 3 Months or Most Recently Relevant to Health Maintenance Insurance [facility] HMO FORMERLY [facility] CLAIMS [facility] [place] [address] Advance Directives For more information, please contact: [phone] Documents on File Type Date Recorded Patient Inside Channel Account Manager Expl anation ADVANCE DIRECTIVE 11/05/2021 3:09 PM Power of Speech And Language Assistant-Medical * Full Code (Latest Code Status on File) Date Activated Date Inactivated Comments 10/31/2021 10:48 PM 11/11/2021 10:17 PM * Full Code Date Activated Date Inactivated Comments 08/15/2021 2:04 AM 08/22/2021 8:59 PM Healthcare Agents on File Name Relationship Healthcare Agent Relationshi p Communication Shannon Jillian Spouse Health Care Agent Care Teams Catalyst Operator Gasoline Relationship Specialty Start Date End Date Elan Calderon MD [address] [place] [address] PCP - General Family Medicine 12/19/19 Cecil Jones MD [address] [facility] [address] [place] [address] [address] Consulting Physician Vascular Surgery 08/21/21
--- OUTSIDE RECORDS SUMMARY | 2025-02-06 17:04 | XMS_ITS | Continuity of Care Document ---
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 It does not include entries that were removed or entered in error. Problem Status Onset Date Problem Type Date of Resolution Comments Source SLEEP APNEA OBSTRUCTIVE Active Condition Pt is on nasal CPAP [facility] Vaccines Prophylactic Need Against DTP Inactive Condition DoD HYPERLIPIDEMIA Active Condition DoD GLUCOSE INTOLERANCE Active Condition Discussed diet, exercise and weight loss DoD Laboratory Studies Inactive Condition Do D visit for: services physical Inactive Condition DoD joint pain, localized in the knee Active Condition [facility] Other Physical Therapy Inactive Condition DoD ALLERGIC RHINITIS Active Condition pt also may use normal saline nasal spray and salt water gargles as needed. 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 DoD Medications Combined list of outpatient medications from Department of Defense and Veterans Affairs facilities.Medications provided include 1) outpatient medications from the last 15 months, and 2) patient-reported medications. Medication Details Route Status Patient Instructions Prescription Expires Prescription Number Last Dispense Date Ordering Provider Order Date Order Qty Source ALLOPURINOL (allopurino l), 300 MG, TABLET, ORAL, ZYDUS PHARMACEU, 500 ea. BOTTLE Active [id number] 2023 90 Pharmac y Data Transac tion Service Facilit y FENOFIBRATE (fenofibrat e), 160 MG, TABLET, ORAL, AJANTA PHARMA L, 90 ea. BOTTLE Active [id number] 4 2023 90 Pharmac y Data Transac tion Service Facilit y METFORMIN HCL (METFORMIN HCL), 1000 MG, TABLET, ORAL, ZYDUS PHARMACEU, 1000 ea. BOTTLE Active [id number] 2023 180 Pharmac y Data Transac tion Service Facilit y METOPROLOL SUCCINATE (metoprolol succinate), 25 MG, TAB ER 24H, ORAL, INGENUS PHARMAC, 1000 ea. BOTTLE Active [id number] 4 2023 90 Pharmac y Data Transac tion Service Facilit y Allergies, Adverse Reactions, Alerts Combined list of allergies from Department of Defense and Veterans Affairs facilities. It does not include entries that were removed or entered in error. Substance Category Reaction Severity Reaction type Status Date Reported Comments Source No Known Allergies Drug allergy (disorder) active 01/13/2007 [facility] ([facility]) Immunizations Combined list of available immunizations from the Department of Defense and Veterans Affairs facilities. Immunization Series Date Given Administered By Site Reaction Lot Number CVX Code Drug Systems Test Analyst Status Comments Source influenza, injectable, quadrivalent- pf 2017 zzLef t Arm [id number] Seqirus complet ed influenza , injectabl e, quadrival ent-pf 06/28/18 Given Ambulat ory Pharmac y Influenza, injectable, quadrivalent, preservative free 1 2017 Unknown, Provider [id number] 150 Seqirus (SEQ) complet ed Influenza , injectabl e, quadrival ent, preservat cosme free DoD influenza, injectable, quadrivalent- pf 2015 zzLef t Arm [id number] 150 GlaxoSmithKli ne complet ed influenza , injectabl e, quadrival ent-pf 06/25/16 Given Ambulat ory Pharmac y Influenza, injectable, quadrivalent, preservative free 1 2015 Unknown, Provider [id number] 150 SmithKline (SKB) complet ed Influenza , injectabl e, quadrival ent, preservat cosme free DoD influenza, injectable, quadrivalent- pf 2014 zzLef t Arm [id number] 150 GlaxoSmithKli ne complet ed influenza , injectabl e, quadrival ent-pf 06/25/15 Given Ambulat ory Pharmac y Influenza, injectable, quadrivalent, preservative free 1 2014 Unknown, Provider [id number] 150 SmithKline (SKB) complet ed Influenza , injectabl e, quadrival ent, preservat cosme free DoD influenza, injectable, quadrivalent 2013 zzLef t Arm [id number] 158 [employer] complet ed influenza , injectabl e, quadrival ent 06/23/14 Given Ambulat ory Pharmac y influenza, injectable, quadrivalent, contains preservative 1 2013 Unknown, Provider [id number] 158 (IDB) complet ed influenza , injectabl e, quadrival ent, contains preservat cosme DoD influenza, seasonal, injectable-pf 2012 [facility] Arm [id number] 140 sanofi pasteur complet ed influenza , seasonal, injectabl e-pf 06/17/13 Given Ambulat ory Pharmac y Influenza, seasonal, injectable, preservative free 11 2012 Unknown, Provider [id number] 140 Sanofi Pasteur (PMC) complet ed Influenza , seasonal, injectabl e, preservat cosme free DoD tetanus, diphtheria, acellular pertu is [facility] [id number] 115 sanofi pasteur complet ed tetanus, diphtheri a, acellular pertussis 10/27/06 Given Ambulat ory Pharmac y tetanus toxoid, reduced diphtheria toxoid, and acellular pertu is vaccine, adsorbed 1 2006 Unknown, Provider [id number] 115 Sanofi Pasteur (PMC) complet ed tetanus toxoid, reduced diphtheri a toxoid, and acellular pertussis vaccine, adsorbed DoD influenza virus vaccine,split [facility] [id number] 15 GlaxoSmithKli ne complet ed influenza virus vaccine,s plit 08/10/06 Given Ambulat ory Pharmac y influenza virus vaccine, split virus (incl. purified surface antigen)-reti red CODE 1 2005 Unknown, Provider [id number] 15 [facility] (SKB) complet ed influenza virus vaccine, split virus (incl. purified surface antigen)- retired CODE DoD influenza virus vaccine,split 2004 zzLef t Arm [id number] 15 sanofi pasteur complet ed influenza virus vaccine,s plit 07/17/05 Given Ambulat ory Pharmac y influenza virus vaccine, split virus (incl. purified surface antigen)-reti red CODE 1 2004 Unknown, Provider [id number] 15 Sanofi Pasteur (PMC) complet ed influenza virus vaccine, split virus (incl. purified surface antigen)- retired CODE DoD influenza virus vaccine,split 2004 zzL t Arm [id number] 15 sanofi pasteur complet ed influenza virus vaccine,s plit 10/23/04 Given Ambulat ory Pharmac y influenza virus vaccine, split virus (incl. purified surface antigen)-reti red CODE 1 2004 Unknown, Provider [id number] 15 Sanofi Pasteur (PMC) complet ed influenza virus vaccine, split virus (incl. purified surface antigen)- retired CODE DoD influenza virus vaccine, whole virus 2002 zzL t Arm [id number] 16 sanofi pasteur complet ed influenza virus vaccine, whole virus 06/19/03 Given Ambulat ory Pharmac y influenza virus vaccine, whole virus 1 2002 Unknown, Provider [id number] 16 Sanofi Pasteur (PMC) complet ed influenza virus vaccine, whole virus DoD typhoid vaccine, inactivated [facility] [id number] sanofi pasteur complet ed typhoid vaccine, inactivat ed 07/19/02 Given Ambulat ory Pharmac y typhoid vaccine, parenteral, other than acetone-kille d, dried 1 2001 Unknown, Provider [id number] Sanofi Pasteur (PMC) complet ed typhoid vaccine, parentera l, other than acetone-k illed, dried DoD influenza virus vaccine, whole virus 2001 [id number] 16 [employer] [facility] complet ed influenza virus vaccine, whole virus 07/15/02 Given Ambulat ory Pharmac y influenza virus vaccine, whole virus 1 2001 Unknown, Provider [id number] 16 [facility] ([facility]) complet ed influenza virus vaccine, whole virus DoD yellow fever vaccine 2001 [facility] Arm [id number] 37 sanofi pasteur complet ed yellow fever vaccine 05/12/02 Given Ambulat ory Pharmac y yellow fever vaccine 1 2001 Unknown, Provider [id number] Sanofi Pasteur (PMC) complet ed yellow fever vaccine DoD meningococcal polysaccharid e (MPSV4) [facility] [id number] 32 sanofi pasteur complet ed meningoco ccal polysacch aride (MPSV4) 05/10/02 Given Ambulat ory Pharmac y meningococcal polysaccharid e vaccine (MPSV4) 1 2001 Unknown, Provider [id number] 32 Sanofi Pasteur (PMC) complet ed meningoco ccal polysacch aride vaccine (MPSV4) DoD tuberculin purified protein derivative 2001 [id number] 96 sanofi pasteur complet ed tuberculi n purified protein derivativ e 03/15/02 Given Ambulat ory Pharmac y influenza virus vaccine, whole virus 2000 zzLef t Arm [id number] 16 sanofi pasteur complet ed influenza virus vaccine, whole virus 07/01/01 Given Ambulat ory Pharmac y influenza virus vaccine, whole virus 1 2000 Unknown, Provider [id number] 16 Sanofi Pasteur ([facility]) complet ed influenza virus vaccine, whole virus DoD typhoid vaccine, inactivated 2000 zzLef t Arm [id number] sanofi pasteur complet ed typhoid vaccine, inactivat ed 09/22/00 Given Ambulat ory Pharmac y tuberculin purified protein derivative 2000 zzLef t Arm [id number] 96 sanofi pasteur complet ed Patient Tolerance : Negative Ambulat ory Pharmac y typhoid vaccine, parenteral, other than acetone-kille d, dried 1 2000 Unknown, Provider [id number] Sanofi Pasteur ([facility]) complet ed typhoid vaccine, parentera l, other than acetone-k illed, dried DoD tuberculin skin test; purified protein derivative solution, intradermal 1 2000 Unknown, Provider [id number] 96 Sanofi Pasteur ([facility]) complet ed tuberculi n skin test; purified protein derivativ e solution, intraderm al DoD influenza virus vaccine, whole virus 2000 zzLef t Arm [id number] 16 [employer] [facility] complet ed influenza virus vaccine, whole virus 09/03/00 Given Ambulat ory Pharmac y influenza virus vaccine, whole virus 1 2000 Unknown, Provider [id number] 16 [facility] ([facility]) complet ed influenza virus vaccine, whole virus DoD influenza virus vaccine, whole virus 1998 [id number] 16 [facility] complet ed influenza virus vaccine, whole virus 06/27/99 Given Ambulat ory Pharmac y influenza virus vaccine, whole virus 1 1998 Unknown, Provider [id number] 16 [facility] complet ed influenza virus vaccine, whole virus DoD influenza virus vaccine, whole virus [id number] 16 [facility] complet ed influenza virus vaccine, whole virus 07/23/98 Given Ambulat ory Pharmac y influenza virus vaccine, whole virus 2 1997 Unknown, Provider [id number] 16 [facility] (CON) complet ed influenza virus vaccine, whole virus DoD tuberculin purified protein derivative 1997 [id number] 96 [facility] Labs complet ed Patient Tolerance : Negative Ambulat ory Pharmac y hepatitis A adult vaccine 1997 [id number] [employer] complet ed hepatitis A adult vaccine 01/31/98 Given Ambulat ory Pharmac y hepatitis A vaccine, adult dosage 2 1997 Unknown, Provider [id number] Merck (MSD) complet ed hepatitis A vaccine, adult dosage DoD tuberculin skin test; purified protein derivative solution, intradermal 1 1997 Unknown, Provider [id number] 96 [facility] (CON) complet ed tuberculi n skin test; purified protein derivativ e solution, intraderm al DoD influenza virus vaccine, whole virus 1996 16 complet ed influenza virus vaccine, whole virus 06/07/97 Given Ambulat ory Pharmac y influenza virus vaccine, whole virus 1 1996 Unknown, Provider 16 () complet ed influenza virus vaccine, whole virus DoD tetanus-dipht h toxoids (Td) adult/adol 1995 09 complet ed tetanus-d iphth toxoids (Td) adult/ado l 06/30/96 Given Ambulat ory Pharmac y hepatitis A adult vaccine 1995 52 complet ed hepatitis A adult vaccine 06/30/96 Given Ambulat ory Pharmac y tetanus and diphtheria toxoids, adsorbed, preservative free, for adult use (2 Lf of tetanus toxoid and 2 Lf of diphtheria toxoid) 2 1995 Unknown, Provider 09 () complet ed tetanus and diphtheri a toxoids, adsorbed, preservat cosme free, for adult use (2 Lf of tetanus toxoid and 2 Lf of diphtheri a toxoid) DoD hepatitis A vaccine, adult dosage 1 1995 Unknown, Provider 52 () complet ed hepatitis A vaccine, adult dosage DoD poliovirus vaccine, live, oral 1987 02 complet ed polioviru s vaccine, live, oral 02/29/88 Given Ambulat ory Pharmac y trivalent poliovirus vaccine, live, oral 1 1987 Unknown, Provider 02 () complet ed trivalent polioviru s vaccine, live, oral DoD tetanus-dipht h toxoids (Td) adult/adol 1985 09 complet ed tetanus-d iphth toxoids (Td) adult/ado l 05/31/86 Given Ambulat ory Pharmac y tetanus and diphtheria toxoids, adsorbed, preservative free, for adult use (2 Lf of tetanus toxoid and 2 Lf of diphtheria toxoid) 1 1985 Unknown, Provider 09 () complet ed tetanus and diphtheri a toxoids, adsorbed, preservat cosme free, for adult use (2 Lf of tetanus toxoid and 2 Lf of diphtheri a toxoid) DoD measles/mumps /rubella virus vaccine 1984 03 complet ed measles/m umps/rube lla virus vaccine 05/30/85 Given Ambulat ory Pharmac y measles, mumps and rubella virus vaccine 1 1984 Unknown, Provider 03 () complet ed measles, mumps and rubella virus vaccine DoD Encounters Combined list of: 1) Encounters from Department of Veterans Affairs facilities going backup to the last 18 months, not all VA inpatient encounters are included; 2) Encounters from the Department of Defense facilities going backup to 280 months. Location Location Details Encounter Type Encounter Number Reason For Visit Attending Provider ADM Date DC Date Status Disposition Source [address] [place] [address] Elan [facility] Non-GME FHI1) OUTPATIENT [id number] WERO Corbett 06/10 Released w/o Limitations [address] [place] [address] Elan [facility]ER[facility])(F amily Practic e Non-GME FHI1) [address] [place] [address] Elan Shanika [facility] Practice Non-GME FHI1) TELE CONSULT [id number] WERO LARSON 06/[address] [place] [address] Elan [facility]F amily Practic e Non-GME FHI1) [address] [place] [address] Elan GERBER [facility] Non-GME FHI1) TELE CONSULT [id number] wants to speak with pcm MAULIK SAHA 06/[address] [place] [address] Elan [facility]F amily Practic e Non-GME FHI1) [address] [place] [address] [employer] ([facility])(Pt Neuromusc uloskelet al Clinic) OUTPATIENT [id number] right knee pain JOHN STOUT 07/02 Released with Work/Duty Limitations [facility] [employer] ([facility])(P t Neuromu sculosk eletal Clinic) [facility] [employer] ([facility])(Phy sical Therapy) OUTPATIENT [id number] JAROCHO CARROLL 07/10 Released w/o Limitations [employer] ([facility])(P hysical Therapy ) [facility] [employer] ([facility])(Phy sical Therapy) OUTPATIENT [id number] PAULETTE BARILLAS 07/15 Released w/o Limitations [facility] [employer] ([facility])(P hysical Therapy ) [facility] [employer] ([facility])(Phy sical Therapy) OUTPATIENT [id number] ALVINO ROSS 07/17 Released w/o Limitations [facility] [employer] ([facility])(P hysical Therapy ) [facility] [employer] ([facility])(Opt ometry) OUTPATIENT [id number] eye exam ARJUN GREY 09/04 Released w/o Limitations [facility] [employer] ([facility])(O ptometr y) [facility] [employer] ([facility])(Fam venu Practice Non-GME FHI1) OUTPATIENT [id number] back pain WERO LARSON 10/07 Released w/o Limitations [facility] [employer] ([facility])(F amily Practic e Non-GME FHI1) [facility] [employer] ([facility])(Phy sical Therapy) OUTPATIENT [id number] BACKACH E JOHN STOUT 10/28 Released w/o Limitations [employer] ([facility])(P hysical Therapy ) [facility] [employer] ([facility])(Fam venu Practice Non-GME FHI1) OUTPATIENT [id number] Discuss Sleep Disorde rs WERO LARSON 05/14 Released w/o Limitations [facility] [employer] ([facility])(F amily Practic e Non-GME FHI1) [facility] [employer] ([facility])(Fam venu Practice Non-GME FHI2) OUTPATIENT [id number] sinuses and sore throat ALIX NOONAN 05/20 Released w/o Limitations [employer] ([facility])(F amily Practic e Non-GME FHI2) [employer] ([facility])(Fam venu Practice Non-GME FHI2) OUTPATIENT [id number] Knee pain ALIX NOONAN 05/29 Released w/o Limitations [employer] ([facility])(F amily Practic e Non-GME FHI2) [employer] ([facility])(Phy sical Therapy) OUTPATIENT [id number] tendoni JOHN Weber 06/01 Released w/o Limitations [employer] ([facility])(P hysical Therapy ) [employer] ([facility])(Phy sical Therapy) OUTPATIENT [id number] LORENA CARMONA 06/03 Released w/o Limitations [employer] ([facility])(P hysical Therapy ) [employer] ([facility])(Phy sical Therapy) OUTPATIENT [id number] JAROCHO CARROLL P 06/05 Released w/o Limitations [employer] ([facility])(P hysical Therapy ) [employer] ([facility])(Phy sical Therapy) OUTPATIENT [id number] JAROCHO CARROLL P 06/09 Released w/o Limitations [employer] ([facility])(P hysical Therapy ) [employer] ([facility])(Phy sical Therapy) OUTPATIENT [id number] AMANUEL DAN 06/11 Released w/o Limitations [employer] ([facility])(P hysical Therapy ) [employer] ([facility])(Phy sical Therapy) OUTPATIENT [id number] AMANUEL DAN W 06/16 Released w/o Limitations [employer] ([facility])(P hysical Therapy ) [employer] ([facility])(Phy sical Therapy) OUTPATIENT [id number] AMANUEL DAN W 06/18 Released w/o Limitations [employer] ([facility])(P hysical Therapy ) [employer] [facility]Phy sical Therapy) OUTPATIENT [id number] LORENA CARMONA W 06/23 Released w/o Limitations [address] [place] [address] Elan B [facility]P hysical Therapy ) [address] [place] [address] Elan B [facility])(Phy sical Therapy) OUTPATIENT [id number] LORENA CARMONA W 06/30 Released w/o Limitations [address] [place] [address] Elan [facility])(P hysical Therapy ) [address] [place] [address] Elan [facility])([facility]) OUTPATIENT [id number] TOMASA CARABALLO 09/10 Released w/o Limitations [address] [place] [address] Elan B [facility]) [address] [place] [address] Elan [facility])(Fam venu Practice Non-GME FHI1) TELE CONSULT [id number] call back lab results SINAI ALVAREZ 09/[address] [place] [address] Elan [facility])(F amily Practic e Non-GME FHI1) [address] [place] [address] Elan [facility])(Fam venu Practice Non-GME FHI1) TELE CONSULT [id number] lab results SINAI ALVAREZ 10/[address] [place] [address] Elan [facility])(F amily Practic e Non-GME FHI1) [address] [place] [address] Elan [facility])([facility] venu Practice Non-GME FHI1) OUTPATIENT [id number] f/u labs (hyertr iglycer ides and r/o DM) LOKI GRAHAM 10/22 Released w/o Limitations [address] [place] [address] Elan IYERB [facility]F amily Practic e Non-GME FHI1) [address] [place] [address] Elan B [facility])([facility] venu Practice Non-GME FHI1) OUTPATIENT [id number] immun LOKI GRAHAM 10/27 Released w/o Limitations [address] [place] [address] Elan [facility])(F amily Practic e Non-GME FHI1) [address] [place] [address] Elan [facility])([facility] venu Practice Non-GME FHI1) TELE CONSULT [id number] BASSAM Fox 01/[address] [place] [address] Elan GERBER ([facility])(F amily Practic e Non-GME FHI1) Procedures Combined list of: 1) Procedures from Department of Veterans Affairs facilities going back up to thelast 18 months, not all VA non-surgical procedures are included; 2) All procedures from the Department of Defense facilities. Procedure Procedure Type Code Date Perfomer Comments Sourc e No data available for this section Ambulato ry Pharmacy Tdap Vaccine Tdap Vaccine 16750 [id number] DOLORES GOMEZ Modalities Electrical Stimulation Unattended Modalities Electrical Stimulation Unattended [id number] KRISTINE, LORENA W [facility] Modalities Heat Hot Packs Modalities Heat Hot Packs [phone] KRISTINE, LORENA W [facility] Physical Therapy: ___ Se ion Segments, 15 Minutes Each Physical Therapy: ___ Session Segments, 15 Minutes Each [id number] KRISTINE, LORENA W [facility] Modalities Heat Hot Packs Modalities Heat Hot Packs 92709 [facility], LORENA W [facility] Modalities Electrical Stimulation Unattended Modalities Electrical Stimulation Unattended [id number] [facility], LORENA W [facility] Physical Therapy: ___ Se ion Segments, 15 Minutes Each Physical Therapy: ___ Session Segments, 15 Minutes Each [id number] KRISTINE, LORENA W DoD Modalities Electrical Stimulation Unattended Modalities Electrical Stimulation Unattended [id number] DAN, AMANUEL W Do[facility] Modalities Heat Hot Packs Modalities Heat Hot Packs [id number] DAN, AMANUEL W [facility] Physical Therapy: ___ Se ion Segments, 15 Minutes Each Physical Therapy: ___ Session Segments, 15 Minutes Each [id number] 006 DAN, AMANUEL W DoD Modalities Electrical Stimulation Unattended Modalities Electrical Stimulation Unattended [id number] 006 DAN, AMANUEL W DoD Modalities Heat Hot Packs Modalities Heat Hot Packs 80331 DAN, AMANUEL W DoD Modalities Electrical Stimulation Unattended Modalities Electrical Stimulation Unattended 48312 006 DAN, AMANUEL W DoD Modalities Heat Hot Packs Modalities Heat Hot Packs 19698 DAN, AMANUEL W DoD Modalities Electrical Stimulation Unattended Modalities Electrical Stimulation Unattended [id number] 006 GLENJAROCHO Jostin [employer] Modalities Heat Hot Packs Modalities Heat Hot Packs 18111 GLEN JAROCHO [employer] Modalities Electrical Stimulation Unattended Modalities Electrical Stimulation Unattended 45391 GLEN JAROCHO [employer] Modalities Heat Hot Packs Modalities Heat Hot Packs 22960 JAROCHO CARROLL Tolu Modalities Heat Hot Packs Modalities Heat Hot Packs 22516 VLADIMIR CARMONAOTHY [place] Modalities Electrical Stimulation Unattended Modalities Electrical Stimulation Unattended 16535 LORENA CARMONA Physical Medicine Physical Therapy Evaluation Physical Medicine Physical Therapy Evaluation [id number] 006 JOHN STOUT Modalities Heat Hot Packs Modalities Heat Hot Packs 64400 JOHN STOUT Modalities Electrical Stimulation Unattended Modalities Electrical Stimulation Unattended 17977 006 JOHN STOUT IFC to the right knee, zero to 100 Hz -- 20 minutes [facility] Physical Medicine Physical Therapy Evaluation Physical Medicine Physical Therapy Evaluation 68890 006 JOHN STOUT Physical Therapy: ___ Se ion Segments, 15 Minutes Each Physical Therapy: ___ Session Segments, 15 Minutes Each 20753 006 JOHN STOUT Ophthalmological New Patient Start Comprehensive Care Ophthalmological New Patient Start Comprehensive Care [id number] 006 ARJUN RGEY Determination Of Refractive State Determination Of Refractive State 97809 006 ARJUN GREY Spectacles Services Fitting Monofocals (Not For Aphakia) Spectacles Services Fitting Monofocals (Not For Aphakia) 78416 006 ARJUN GREY Visual Reddy Test Intermediate Examination Visual Reddy Test Intermediate Examination 75767 006 ARJUN GREY Modalities Heat Hot Packs Modalities Heat Hot Packs 26732 005 ALVINO ROSS Modalities Electrical Stimulation Modalities Electrical Stimulation 89326 005 ALVINO ROSS Modalities Electrical Stimulation Modalities Electrical Stimulation 12750 005 BARILLAS, PAULETTE E. DoD Modalities Heat Hot Packs Modalities Heat Hot Packs 43871 005 PAULETTE BARILLAS DoD Modalities Electrical Stimulation Modalities Electrical Stimulation 36921 005 JAROCHO CARROLL DoD Modalities Heat Hot Packs Modalities Heat Hot Packs 55861 005 JAROCHO CARROLL DoD Modalities Heat Hot Packs Modalities Heat Hot Packs 08239 005 JOHN STOUT [facility] Physical Medicine Physical Therapy Evaluation Physical Medicine Physical Therapy Evaluation 10874 005 JOHN STOUT [facility] Modalities Electrical Stimulation Modalities Electrical Stimulation 50740 005 JOHN STOUT IFC to the right knee x 20 minutes. DoD SCANNING COMPUTERIZED OPHTHALMIC DIAGNOSTIC IMAGING, POSTERIOR SEGMENT, (EG, SCANNING LASER) WITH INTERPRETATION AND REPORT, UNILATERAL DoD PHOTOREFRACTIVE KERATECTOMY (PRK) [facility] PHYS/OTH QUALIFIED HEALTH SPECIALTIES OPERATOR QUALIFIED,EDUCATION ,TRAIN,LICENSURE/RE GULATION (WHEN APPLICABLE) EDUC SER RENDERED TO PATS IN A GRP SETTING (EG,,OBESIT Y,OR DIABETIC INSTRUCT) DoD PHYS/OTH QUALIFIED HEALTH SPECIALTIES OPERATOR QUALIFIED,EDUCATION ,TRAIN,LICENSURE/RE GULATION (WHEN APPLICABLE) EDUC SER RENDERED TO PATS IN A GRP SETTING (EG,,OBESIT Y,OR DIABETIC INSTRUCT) 003 [facility] TONOGRAPHY WITH INTERPRETATION AND REPORT, RECORDING INDENTATION TONOMETER METHOD OR PERILIMBAL SUCTION METHOD DoD TETANUS, DIPHTHERIA TOXOIDS AND ACELLULAR PERTUSSIS VACCINE (TDAP), WHEN ADMINISTERED TO INDIVIDUALS 7 YEARS OR OLDER, FOR INTRAMUSCULAR USE 007 DoD THERAPEUTIC PROCEDURE, 1 OR MORE AREAS, EACH 15 MINUTES; THERAPEUTIC EXERCISES TO DEVELOP STRENGTH AND ENDURANCE, RANGE OF MOTION AND FLEXIBILITY 006 DoD THERAPEUTIC PROCEDURE, 1 OR MORE AREAS, EACH 15 MINUTES; THERAPEUTIC EXERCISES TO DEVELOP STRENGTH AND ENDURANCE, RANGE OF MOTION AND FLEXIBILITY 006 DoD THERAPEUTIC PROCEDURE, 1 OR MORE AREAS, EACH 15 MINUTES; THERAPEUTIC EXERCISES TO DEVELOP STRENGTH AND ENDURANCE, RANGE OF MOTION AND FLEXIBILITY 006 DoD APPLICATION OF A MODALITY TO 1 OR MORE AREAS; HOT OR COLD PACKS 006 DoD APPLICATION OF A MODALITY TO 1 OR MORE AREAS; HOT OR COLD PACKS 006 DoD APPLICATION OF A MODALITY TO 1 OR MORE AREAS; HOT OR COLD PACKS 006 DoD APPLICATION OF A MODALITY TO 1 OR MORE AREAS; HOT OR COLD PACKS 006 DoD APPLICATION OF A MODALITY TO 1 OR MORE AREAS; ELECTRICAL STIMULATION (UNATTENDED) 006 DoD APPLICATION OF A MODALITY TO 1 OR MORE AREAS; HOT OR COLD PACKS 006 DoD THERAPEUTIC PROCEDURE, 1 OR MORE AREAS, EACH 15 MINUTES; THERAPEUTIC EXERCISES TO DEVELOP STRENGTH AND ENDURANCE, RANGE OF MOTION AND FLEXIBILITY 006 DoD VISUAL FIELD EXAMINATION, UNI OR BILATERAL, WITH MEDICAL DIAGNOSTIC EVAL; INTERMEDIATE EXAM (EG, AT LEAST 2 ISOPTERS ON GOLDMANN PERIMETER, OR SEMIQUANT, AUTO SUPRATHRESHOLD SCREEN PROGRAM, SAGE 006 DoD APPLICATION OF A MODALITY TO 1 OR MORE AREAS; HOT OR COLD PACKS 005 DoD APPLICATION OF A MODALITY TO 1 OR MORE AREAS; HOT OR COLD PACKS 005 DoD APPLICATION OF A MODALITY TO 1 OR MORE AREAS; HOT OR COLD PACKS 005 DoD APPLICATION OF A MODALITY TO 1 OR MORE AREAS; HOT OR COLD PACKS 005 DoD OPHTHALMOLOGICAL SERVICES: MEDICAL EXAMINATION AND EVALUATION, WITH INITIATION OR CONTINUATION OF DIAGNOSTIC AND TREATMENT PROGRAM; INTERMEDIATE, ESTABLISHED PATIENT 004 DoD OPHTHALMOLOGICAL SERVICES: MEDICAL EXAMINATION AND EVALUATION, WITH INITIATION OR CONTINUATION OF DIAGNOSTIC AND TREATMENT PROGRAM; INTERMEDIATE, ESTABLISHED PATIENT 003 DoD DETERMINATION OF REFRACTIVE STATE 003 DoD DETERMINATION OF REFRACTIVE STATE 003 DoD CHIROPRACTIC MANIPULATIVE TREATMENT (CMT); SPINAL, 1-2 REGIONS 003 DoD MANUAL THERAPY TECHNIQUES (EG, MOBILIZATION/ MANIPULATION, MANUAL LYMPHATIC DRAINAGE, MANUAL TRACTION), 1 OR MORE REGIONS, EACH 15 MINUTES 003 DoD CHIROPRACTIC MANIPULATIVE TREATMENT (CMT); SPINAL, 1-2 REGIONS 003 DoD MANUAL THERAPY TECHNIQUES (EG, MOBILIZATION/ MANIPULATION, MANUAL LYMPHATIC DRAINAGE, MANUAL TRACTION), 1 OR MORE REGIONS, EACH 15 MINUTES 003 DoD DETERMINATION OF REFRACTIVE STATE 003 DoD MANUAL THERAPY TECHNIQUES (EG, MOBILIZATION/ MANIPULATION, MANUAL LYMPHATIC DRAINAGE, MANUAL TRACTION), 1 OR MORE REGIONS, EACH 15 MINUTES [facility] MANUAL THERAPY TECHNIQUES (EG, MOBILIZATION/ MANIPULATION, MANUAL LYMPHATIC DRAINAGE, MANUAL TRACTION), 1 OR MORE REGIONS, EACH 15 MINUTES DoD Social History Combined list of available smoking, tobacco, and other social history from Department of Defense and Veterans Affairs facilities. Social History Type Response Date Comment [facility] e This section is an empty social history section. DoD Assessment and Plan Combined list of future care activities from Department of Defense and Veterans Affairs facilities (e.g., assessment and plan notes, appointments, orders, and referrals). Additional future care activities may be listed in the Plan of Care section. Result Assessment and Plan Date Source Assessment and Plan No data available for this section 02/06/2025 Ambulatory Pharmacy Functional Status Combined list of recent functional and cognitive assessments recorded at Department of Defense and Veterans Affairs (VA).VA Functional [place] Measurement (FIM) Scale: 1 = Total Assistance (Subject = 0% +), 2 = Maximal Assistance (Subject = 25% +), 3 = Moderate Assistance (Subject = 50% +), 4 = Minimal Assistance (Subject = 75% +), 5 = Supervision, 6 = Modified [place] (Device), 7 = Complete [place] (Timely, Safely). Assessment Date/Time Source Assessment Type Assessment Skill Assessment Score Assessment Details No data available for this section
--- OUTSIDE RECORDS SUMMARY | 2025-02-06 17:04 | XMS_ITS | Clinical Summary ---
Author Organization [address] Address [address] [place] [address] Care Team Providers Care [employer]berry [employer] Supervisor Name Role Phone Elan Calderon MD Primary Care Provid er Cecil Jones MD Unavailable [phone] Allergies No known active allergies Medications DULoxetine DR (CYMBALTA) 60 mg capsuleIndications :Paresthesia,Diabe tic polyneuropathy associated with type 2 diabetes mellitus (HCC) Take 1 capsule (60 mg total) by mouth daily 90 capsule 3 02/23/20 21 Active Additional Information Patient not taking.Informant: Self, Reported on 06/16/2024 exenatide ER (BYDUREON) 2 mg suspension,extende d rel reconIndications:t ype 2 diabetes mellitus 2 mg every 7 days injection Active alcohol swabs (Alcohol Wipes) pads, medicated Use as directed. 100 each 08/21/20 21 Active blood glucose strip-disp meter kit Use as directed. 1 kit 08/21/20 Active OneTouch Verio test strips strip Use as directed up to four times a day. 100 each 1 08/21/20 21 Active lancets misc Use as directed up to 4 times a day. 100 each 1 08/21/20 21 Active OneTouch Verio Meter misc 08/22/20 21 Active blood-glucose meter,continuous (Dexcom G6 Seat Maker) miscIndications:Un controlled type 2 diabetes mellitus with hyperglycemia (HCC),Diabetic polyneuropathy associated with type 2 diabetes mellitus (HCC) Use as directed 1 each 09/10/19 Active blood-glucose transmitter deviceIndications: Uncontrolled type 2 [...] as needed for cough 60 capsule 05/17/20 Active Additional Information Patient not taking.Reported on 06/16/2024 omega 9-ccj-sis-fish oil 1,000 mg (120 mg-180 mg) capsule [...] 10/31/2021 Assessment & Plan (10/31/2021 8:50 PM MRI ASSISTANT): Vanc and unasyn started in ER, will switch unasyn to cefepime for pseudomonal coverage. Vascular surgery consulted in eR Sepsis 08/22/2021 Abscess of left foot 08/22/2021 Assessment & Plan (09/06/2021 1:37 PM MRI ASSISTANT): Impression: Patient is status post incision drainage [...] 08/14/2021 Assessment & Plan (10/31/2021 8:50 PM MRI ASSISTANT): Pt may use own cpap Tobacco dependence due to cigarettes 08/14/2021 Chronic cervical radiculopathy 02/22/2021 Benign essential tremor 11/22/2018 Dyslipidemia 11/06/2017 Assessment & Plan (10/31/2021 8:55 PM MRI ASSISTANT): Cont statin Benign essential hypertension 07/17/2016 Diabetic neuropathy 07/17/2016 Assessment & Plan (10/31/2021 8:50 PM MRI ASSISTANT): Cont home meds Idiopathic gout 07/17/2016 Paresthesia 07/17/2016 Testicular hypofunction 07/17/2016 Inadequately controlled diabetes mellitus 2015 Assessment & Plan (10/31/2021 8:51 PM MRI ASSISTANT): Cont lantus, SS coverage Osteomyelitis of great toe of left foot Encounter for management of wound VAC Encounters Date Type Department Care Team Description 02/01/2025 Telephone [facility] Medical [facility] Family Medicine [address] [address] Elan Calderon MD Medical Question/Miscellaneous from Last 3 Months Immunizations Immunization Administration Dates Next Due Influenza, Quadrivalent, Spl it, Preservative Free, Intramuscular 07/24/2023,08/22/2021,08/01/2020 Influenza, Unspecified 05/31/2022 Pfizer SARS-CoV-2 Monovalent Vaccination (12+ Yrs) PURPLE 12/04/2020,11/12/2020 Pneumococcal Conjugate Pcv20 09/02/2023 Tdap 12/20/2019 ZOSTER Recombinant 02/22/2021 Surgical History Surgery Date Site/Laterality Comments EYE SURGERY cataract removal R eye INCISION AND DRAINAGE FOOT 08/15/2021 Left with debridement TOE AMPUTATION 08/15/2021 Left 1st and 2nd left toes VASCULAR SURGERY 10/09/2021 Left left foot split thickness skin graft BELOW KNEE LEG AMPUTATION 11/06/2021 Left Medical History Medical History Date Comments Hypertension Hyperlipidemia Idiopathic gout CHARITY on CPAP 08/14/2021 Toe amputee Left foot 1 & 2n d toe Type 2 diabetes mellitus (HCC) I DDM Tooth missing Wears glasses Wound of foot LEFT FOOT, WOUND VAC IN PLACE Family History Medical History Relation Name Comments Diabetes Father Heart disease Father Hyperlipidemia Father Hypertension Father Lung cancer Father Heart disease Mother Relation Name Status Comments Father at 65 Mother Alive Social History Tobacco Use Types Packs/Day Years [...] on file Legal Sex Male 7:52 PM MRI ASSISTANT Gender Identity Male 09/28/2021 9:33 AM MRI ASSISTANT Sexual Orientation Straight 09/28/2021 9: 33 AM MRI ASSISTANT 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 [employer] Not on file Not on file Not on file Obstetrics History Last Filed Vital Signs Vital Sign Reading [...] 06/16/2024 3:58 PM CDT Plan of Treatment Health Maintenance Due Date Last Done Comments Hepatitis B Screening 1981 Zoster Vaccine (2 of 2) 04/19/2021 02/22/2021 Albumin Creatinine Ratio, Urine 03/26/2022 , 07/16/2016 Lipid Panel 03/26/2022 03/26/2021, 07/01, 05/28/2015, Additional history exists eGFR 11/11/2022 11/11/2021, 10/29, 11/09/2021, Additional history exists Prostate Cancer Screening-PSA 03/26/2023, 07/16/2016, 05/28/2015 Covid-19 Vaccine (5 - 2023-2 5 season) 2024 07/24/2023, 11/03/2022, 12/04/2020, Additional history exists Hemoglobin A1C 07/28/2024 01/26/2024, 03/0 10/2021, 08/15/2021, Additional history exists Depression Screening 09/02/2024 09/02/2023, 09/02/2023, 02/24/2022, Additional history exists Regular Well Visit/Exam 18-64 09/02/2024, 02/24/2022, 02/22/2021, Additional history exists Foot Exam 01/14/2025 01/15/2024, 12/29, 09/02/2023, Additional history exists Influenza Vaccine (Season Ended) 2025 07/24/2023, 05/31/2022, 08/22/2021, Additional history exists Dilated Eye Exam 09/26/2025 09/26/2024, 11/2023, 01/11/2024, Additional history exists DTaP/Tdap/Td Vaccine (3 - Td or Tdap) 12/19/2029 12/20/2019, 10/27/2006, 06/30/1996, Additional history exists Colon Cancer Screening-Colonoscopy 01/16/2030 01/17/2020 Colon Cancer Screening-CT Colonography Discontinued 01/17/2020 Colon Cancer Screening-DNA Stool Discontinued 01/17/20 Colon Cancer Screening-FIT Discontinued 01/17/2020 Colon Cancer Screening-Sigmoidoscopy Discontinued 01/17/2020 Hepatitis C Screening Completed 03/26/2021 Pneumococcal vaccine <65 Completed 09/02/2023 Procedures Procedure Name Priority Date/Time Associated Diagnosis Comments DIABETES EYE EXAM Routine 09/26/2024 HEMOGLOBIN A1C [...] and children were not included. (Diabetes Care 31:5825-2607, 2008). The eAG is not equivalent to a fasting glucose. Blood 01/26/2024 3:50 PM CDT 01/26/2024 5:33 PM CDT Shabbir Arndt MD LAB BLOOD ORDERABLES Final Resul t Performing Organization Address [facility] Co de Phone Number [address] [address] * eGFR (11/11/2021 4:43 AM CDT) eGFR 99 mL/min/1. 73 m2 [facility] Comment: Interpretive Data Reference Interval Normal >/= [...] BLOOD ORDERABLES Final Result Performing Organization Address [facility] Co de Phone Number [address] [place] [address] * PSA screen (03/26/2021 7:35 AM CDT) PSA 0.5 < OR = 4.0 ng/mL [facility] Comment: The total PSA value from [...] Calderon MD LAB BLOOD ORDERABLES Final Result Performing Organization Address [facility] de Phone Number [facility] [address] [place] [address] * Hepatitis C antibody (03/26/2021 7:35 AM CDT) Pathologist [facility] Hep C Ab NON-REACTI VE NON-REACT TAYLOR [facility] SIGNAL TO CUT-OFF 0.01 <1.00 [facility] Comment: HCV antibody was non-reactive. There is no laboratory evidence of HCV infection. In most cases, no further action is required. However, if recent HCV exposure is suspected, a test for HCV RNA (test code 80409) is suggested. For additional information please refer to http://education.[employer]/faq/UFZ01p0 (This link is being provided for informational/ educational purposes only.) 03/26/2021 7:35 AM CDT 03/26/2021 7:38 AM CDT Narrative [facility] - 03/27/2021 1:46 PM CDT FASTING:YES FASTING: YES Elan Calderon MD LAB MICROBIOLOGY - G ENERAL ORDERABLES Final Result Performing Organization Address [facility] Co de Phone Number [facility] [address] [place] [address] * Albumin Creatinine Ratio, Urine (03/26/2021 7:35 AM CDT) Pathologist [facility] Creatinine, ur 56 20 - 320 mg/dL [...] LAB URINE ORDERABLES Final Result [facility] [address] [facility] [place] [address] * (ABNORMAL) Lipid panel (03/26/2021 7:35 AM CDT) Pathologist [facility] Cholesterol 222(H) <200 mg/dL [facility] [...] equation in the estimation of LDL-C. Earl SS et al. AUDREY. 2013;310(19): 2229-4345 (http://education.BrandProject.sambaash/faq/EYF892) Chol/HDL ratio 5.4(H) <5.0 (calc) [facility] [...] Calderon MD LAB BLOOD ORDERABLES Final Result Performing Organization Address City/State/[facility] Co de Phone Number [facility] [address] [place] [address] * Colonoscopy (01/17/2020) Anatomical Region Laterality Modality Other Historical Provider ENDOSCOPY PROCEDURES Nadiya l Result * DIABETES FOOT EXAM (11/22/2018) Diabetic Foot Exam Normal Historical Provider HEALTH MAINTENANCE Final Result from Last 3 Months or Most Recently Relevant to Health Maintenance [facility] Address: [address] [place] [address] [facility] O [facility] O [facility] Address: [facility] [address] [place] [address] Advance Directives For more information, please contact: [phone] Documents on File Type Date Recorded Patient Inspector Quality Assurance Expl anation ADVANCE DIRECTIVE 11/05/2021 3:09 PM Power of Tree Surgeon Helper-Medical * Full Code (Latest Code Status on File) Date Activated Date Inactivated Comments 10/31/2021 10:48 PM 11/11/2021 10:17 PM * Full Code Date Activated Date Inactivated Comments 08/15/2021 2:04 AM 08/22/2021 8:59 PM Healthcare Agents on File Name Relationship Healthcare Agent Relationshi p Communication Shannon Walsh Spouse Health Care Agent Care Teams [employer] Supervisor Relationship Specialty Start Date End Date Elan Calderon MD [address] [place] [address] PCP - General Family Medicine 12/19/19 Cecil Jones MD [address] [place] [address] [address] Consulting Physician Vascular Surgery 08/21/21
--- OUTSIDE RECORDS SUMMARY | 2025-02-06 17:04 | XMS_ITS | Encounter Summary ---
Author Organization [facility] Healthcare Address [address] [place] [address] Care Team Providers Care Rip Sawyer Name Role Phone Elan Calderon MD Primary Care Provid er Cecil Jones MD Unavailable [phone] Reason for Visit * Reason Onset Date Comments Medical Question/Miscellaneous 02/01/2025 Encounter Details Date Type Department Care Team (Late st Contact Info) Description 02/01/2025 Telephone [facility] Medical Group Family Medicine [address] [phone] Elan Calderon MD [address] [address] Medical Question/Miscellaneous Social History Tobacco Use Types Packs/Day Years Used Date Smoking Tobacco: Former Cigarettes Q uit: 2020 Smokeless Tobacco: Never Alcohol Use Standard Drinks/Week Comments Yes 0 [...] on file Legal Sex Male 7:52 PM PRECISION LAYOUT WORKER Gender Identity Male 09/28/2021 9:33 AM PRECISION LAYOUT WORKER Sexual Orientation Straight 09/28/2021 9: 33 AM PRECISION LAYOUT WORKER 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 Does message need to be routed? Yes-FYI Only documented in this encounter Plan of Treatment Not on file documented as of this encounter Visit Diagnoses Not on filedocumented in this encounter Care Teams Rip Sawyer Relationship Specialty Start Date End Date Elan Calderon MD [facility] [address] [place] [address] PCP - General Family Medicine 12/19/19 Cecil Jones MD [address] [facility] [address] [place] [address] [address] Consulting Physician Vascular Surgery 08/21/21 documented as of this encounter
[2025-02-06 17:09] LABS: Glucose Point of Care 379 mg/dl (65-105)
--- NOTE | 2025-02-06 17:21 | ED.RECABL ---
HPI - Recheck/Abnormal Lab/Rx General Chief Complaint: Recheck/Abnormal Lab/Rx Stated Complaint: high BS Time Seen by Provider: 02/06/25 17:02 Focused HPI: Patient is a 59-year-old male who presents to the ER with high blood sugars. He reports he is a type 2 diabetic and takes metformin and Jardiance at home for blood sugar control. Patient has a left BKA and states it may be from diabetes but we don't know. He reports his sugars have been in the mid 200s to high 300s. Patient denies any open wounds on his right lower extremity, recent fevers, or other concerns for an infection on his right lower extremity. He endorses a history of neuropathy, but reports he checks his feet regularly. Patient has a history of diabetes and hyperlipidemia. GENERAL: Well-appearing, well-nourished, and in no acute distress. HEAD: Normocephalic, atraumatic. CHEST: Clear to auscultation. ?No respiratory distress. HEART: Regular rate and rhythm.? NEURO: ?Alert and oriented x3. Patient screened in triage and initial orders placed.? ?Additional care and disposition to be based upon?diagnostic testing and treatment. Related Data Home Medications ?Medication ?Instructions ?Recorded ?Confirmed ?Last Taken ?Type allopurinol 300 mg tablet 300 mg PO DAILY 12/09/22 12/09/22 12/09/22 History aspirin 81 mg tablet,delayed 81 mg PO DAILY 12/09/22 12/09/22 1 Day Ago History release ~12/08/22 empagliflozin 10 mg tablet 10 mg PO DAILY 12/09/22 12/09/22 12/09/22 History (Jardiance) fenofibrate 160 mg tablet 160 mg PO DAILY 12/09/22 12/09/22 12/09/22 History metformin 1,000 mg tablet 1,000 mg PO BID 12/09/22 12/09/22 12/09/22 History metoprolol succinate 25 mg 25 mg PO DAILY 12/09/22 12/09/22 12/09/22 History tablet,extended release 24 hr omega-3 acid ethyl esters 1 gram 1 g PO DAILY 12/09/22 12/09/22 12/09/22 History capsule simvastatin 40 mg tablet 40 mg PO DAILY 04/11/23 04/11/23 04/11/23 History Allergies Allergy/AdvReac Type Severity Reaction Status Date / Time No Known Allergies Allergy Verified 02/06/25 17:02 [facility], [facility] Past Medical History Medical History Amputated toe Below knee amputation left bka Diabetes Gout Hyperlipidemia associated with type 2 diabetes mellitus Hypertension Surgical History Surgical History H/O eye surgery Hx of cataract extraction Family History Family History Mother Diabetes mellitus Hyperlipidemia associated with type 2 diabetes mellitus Father Diabetes mellitus Hyperlipidemia associated with type 2 diabetes mellitus Hypertension Lung cancer Sibling Cerebrovascular accident Social History Social History Social History: 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 He lives with his . He has 4 children . His is the durable power transactional attorney for healthcare Code status full code Smoking packs per day: 0.75 Smoking cigarettes per day: 15.0 Years smoked: 15 Smoking pack-years: 11.25 Smoking status: Current every day smoker Tobacco type: cigarettes Alcohol intake: current Lack of Transportation: No Lack of Food: Never True Current Housing: I Have Housing Concerned About Future Housing: No Difficulty Paying Gas/Electric Bills: No Difficulty Paying for Meds: No Currently Unemployed: No Education: Associate Degree Difficulty w/ Childcare or Family Care: No Spiritual care concerns: No Course Vital Signs Vital signs: Vital Signs Temperature 97.6 F 02/06/25 17:04 Pulse Rate 52 L 02/06/25 17:04 Respiratory Rate 16 02/06/25 17:04 Blood Pressure 173/72 H 02/06/25 17:04 Pulse Oximetry 96 02/06/25 17:04 Temperature 97.6 F 02/06/25 17:04 Pulse Rate 60 02/06/25 17:58 Respiratory Rate 20 02/06/25 17:58 Blood Pressure 157/81 H 02/06/25 17:58 Pulse Oximetry 96 02/06/25 17:58 MDM - Recheck/Abnormal Lab/Rx Lab Data 02/06/25 17:15 02/06/25 17:15 Labs: Lab Results 02/06/25 02/06/25 02/06/25 Range/Units 17:07 17:15 18:25 WBC 5.8 (4.5-10.0) K/mm3 RBC 5.41 (4.6-6.20) M/mm3 Hgb 16.9 (14.0-18.0) g/dL Hct 48.4 (42.0-52.0) % MCV 89.5 (80-100) fl MCH 31.2 (26-34) pg MCHC 34.9 (32-36) g/dl RDW 12.6 (11.5-14.5) % Plt Count 141 L (150-375) k/mm3 MPV 10.6 H (7.4-10.4) fl Immature Gran % (Auto) 0.3 (0-0.5) % Neut % (Auto) 52.1 (45.5-73.1) % Lymph % (Auto) 36.5 (18.3-44.2) % Fisher % (Auto) 7.5 (2.6-8.5) % Eos % (Auto) 2.6 (0-4.4) % Baso % (Auto) 1.0 (0.2-1.2) % Lymph # (Auto) 2.13 (0.9-3.2) K/mm3 Fisher # (Auto) 0.4 (0.1-0.6) K/mm3 Eos # (Auto) 0.2 (0-0.3) K/mm3 Baso # (Auto) 0.1 (0.0-0.1) K/mm3 Abs Immat Gran (auto) 0.02 (0.00-0.031) K/mm3 Absolute Neuts (auto) 3.0 (1.3-6.7) K/mm3 Absolute Nucleated RBC 0.000 (0.0-0.012) K/mm3 Nucleated RBC % 0.0 (0.0-0.2) % Sodium 133 L (137-145) mmol/L Potassium 4.4 (3.4-5.0) mmol/L Chloride 98 (98-107) mmol/L Carbon Dioxide 26 (22-30) mmol/L Anion Gap 9 (4-12) mmol/L BUN 21 H (9-20) mg/dL Creatinine 0.94 (0.7-1.3) mg/dL Estim Creat Clear Calc 71 ml/min Estimated GFR > 60 (59 - ) Glucose 387 H (65-110) mg/dL POC Capillary Glucose 379 H (65-105) mg/dl Calcium 9.7 (8.4-10.2) mg/dL Total Bilirubin 0.8 (0.2-1.3) mg/dL AST 28 (17-59) U/L ALT 28 (6-50) U/L Alkaline Phosphatase 33 L (38-126) U/L Total Protein 7.5 (6.3-8.2) g/dL Albumin 4.6 (3.5-5.1) g/dL Urine Color Yellow (Yellow) Urine Appearance Clear (Clear) Urine pH 6.0 (5.0-9.0) Ur Specific [place] 1.028 (1.001-1.035) Urine Protein Negative (Negative) mg/dL Urine Glucose (UA) 3+ H (Negative) mg/dL Urine Ketones Negative (Negative) mg/dL Ur Blood (Man) Negative (Negative) Urine Nitrate Negative (Negative) Urine Bilirubin Negative (Negative) Urine Urobilinogen 0.2 (<2.0) mg/dL Leukocyte Esterase Rfl Negative (Negative) MIGUEL/UL Discharge Plan Discharge Clinical Impression: Hyperglycemia due to type 2 diabetes mellitus Patient Disposition: Home Condition: Stable Instructions: Antibiotic Form, Diabetic Hyperglycemia (ED) Additional Instructions: Please call the number listed below to establish care with a primary care physician. Please return if he develops any symptoms such as fevers, nausea, vomiting, abdominal pain, or if his condition is worsening. Patient Language: Belarusian Prescriptions: No Action aspirin 81 mg tablet,delayed release (DR/EC) 81 mg PO DAILY simvastatin 40 mg tablet 40 mg PO DAILY metformin 1,000 mg tablet 1,000 mg PO BID allopurinol 300 mg tablet 300 mg PO DAILY metoprolol succinate 25 mg tablet extended release 24 hr 25 mg PO DAILY omega-3 acid ethyl esters 1 gram capsule 1 g PO DAILY fenofibrate 160 mg tablet 160 mg PO DAILY Jardiance 10 mg tablet 10 mg PO DAILY sulfamethoxazole-trimethoprim 800-160 mg tablet 1 tablet PO Q12H Qty: 20 0RF valacyclovir [Valtrex] 1 gram tablet 1,000 mg PO TID Qty: 21 0RF Follow-up/Referrals: Deuce Pineda MD [Physician] - 1 Week (DM II. establish pcp) PHYSICIAN NOT ON STAFF,NONSTAFF [Primary Care Provider] -
[2025-02-06 17:27] LABS: Basophils Absolute Auto 0.1 K/mm3 (0.0-0.1); Eosinophils Absolute Auto 0.2 K/mm3 (0-0.3); Eosinophils Percent Auto 2.6 % (0-4.4); Hematocrit 48.4 % (42.0-52.0); Hemoglobin 16.9 g/dL (14.0-18.0); Immature Granulocyte Absolute 0.02 K/mm3 (0.00-0.031); Immature Granulocyte Percent A 0.3 % (0-0.5); Lymphocytes Absolute Auto 2.13 K/mm3 (0.9-3.2); Lymphocytes Percent Auto 36.5 % (18.3-44.2); Mean Corpuscular HGB Conc 34.9 g/dl (32-36); Mean Corpuscular Hemoglobin 31.2 pg (26-34); Mean Corpuscular Volume 89.5 fl (80-100); Mean Platelet Volume 10.6 fl (7.4-10.4); Monocytes Absolute Auto 0.4 K/mm3 (0.1-0.6); Monocytes Percent Auto 7.5 % (2.6-8.5); Neutrophils Percent Auto 52.1 % (45.5-73.1); Platelet Count Result 141 k/mm3 (150-375); Red Blood Count 5.41 M/mm3 (4.6-6.20); Red Cell Distribution Width 12.6 % (11.5-14.5); White Blood Count 5.8 K/mm3 (4.5-10.0)
[2025-02-06 17:57] VITALS: RESP 20; O2SAT 96
[2025-02-06 17:58] VITALS: BP 157/81; PULSE 60; RESP 20; O2SAT 96
[2025-02-06 17:58] LABS: Alanine Aminotransferase 28 U/L (6-50); Albumin Level 4.6 g/dL (3.5-5.1); Alkaline Phosphatase 33 U/L (38-126); Anion Gap 9 mmol/L (4-12); Aspartate Amino Transferase 28 U/L (17-59); Bilirubin,Total 0.8 mg/dL (0.2-1.3); Blood Urea Nitrogen 21 mg/dL (9-20); Calcium 9.7 mg/dL (8.4-10.2); Carbon Dioxide 26 mmol/L (22-30); Chloride 98 mmol/L (98-107); Estimated CRCL calculation 71 ml/min; Estimated Glomerular Filt Rate > 60; Glucose 387 mg/dL (65-110); Potassium 4.4 mmol/L (3.4-5.0); Sodium 133 mmol/L (137-145); Total Protein 7.5 g/dL (6.3-8.2)
[2025-02-06 18:32] LABS: Add Urine Microscopic? NO; Appearance Urine Clear (Clear); Bilirubin Urine Negative (Negative); Blood Urine Negative (Negative); Color Urine Yellow (Yellow); Glucose Urine UA 3+ mg/dL (Negative); Ketones Urine Negative (Negative); Leukocyte Esterase Ur Negative LEU/UL (Negative); Nitrate Urine Negative (Negative); Protein Urine Negative (Negative); Specific Grav Ur 1.028 (1.001-1.035); Urobilinogen Urine 0.2 mg/dL (<2.0)
--- OUTSIDE RECORDS SUMMARY | 2025-02-06 18:37 | XMS_ITS | Encounter Summary ---
Author Organization [facility] Healthcare Address [address] [place] [address] Care Team Providers Care Linter Drier Operator Name Role Phone Elan Calderon MD Primary Care Provid er Cecil Jones MD Unavailable [phone] Reason for Visit * Reason Onset Date Comments Medical Question/Miscellaneous 02/01/2025 Encounter Details Date Type Department Care Team (Late st Contact Info) Description 02/01/2025 Telephone [facility] Medical Group Family Medicine [address] [phone] Elan Calderon MD [address] [address] Medical Question/Miscellaneous Social History Tobacco [...] on file Legal Sex Male 7:52 PM STRAW BALER Gender Identity Male 09/28/2021 9:33 AM STRAW BALER Sexual Orientation Straight 09/28/2021 9: 33 AM STRAW BALER 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
--- OUTSIDE RECORDS SUMMARY | 2025-02-06 18:37 | XMS_ITS | Clinical Summary ---
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 Vascular surgery consulted in eR Sepsis 08/22/2021 Abscess of left foot 08/22/2021 Assessment & Plan (09/06/2021 1:37 PM ACETONE RECOVERY WORKER): Impression: Patient is status post incision drainage [...] 08/14/2021 Assessment & Plan (10/31/2021 8:50 PM ACETONE RECOVERY WORKER): Pt may use own cpap Tobacco dependence due to cigarettes 08/14/2021 Chronic cervical radiculopathy 02/22/2021 Benign essential tremor 11/22/2018 Dyslipidemia 11/06/2017 Assessment & Plan (10/31/2021 8:55 PM ACETONE RECOVERY WORKER): Cont statin Benign essential hypertension 07/17/2016 Diabetic neuropathy 07/17/2016 Assessment & Plan (10/31/2021 8:50 PM ACETONE RECOVERY WORKER): Cont home meds Idiopathic gout 07/17/2016 Paresthesia 07/17/2016 Testicular hypofunction 07/17/2016 Inadequately controlled diabetes mellitus 2015 Assessment & Plan (10/31/2021 8:51 PM ACETONE RECOVERY WORKER): Cont lantus, SS coverage Osteomyelitis of great toe of left foot Encounter for management of wound VAC Encounters Date Type Department Care Team Description 02/01/2025 Telephone [facility] Family Medicine [address] [phone] Elan Calderon MD Medical Question/Miscellaneous [...] on file Legal Sex Male 7:52 PM ACETONE RECOVERY WORKER Gender Identity Male 09/28/2021 9:33 AM ACETONE RECOVERY WORKER Sexual Orientation Straight 09/28/2021 9: 33 AM ACETONE RECOVERY WORKER 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 (Diabetes Care 31:[id number], 2008). The eAG is not equivalent to a fasting glucose. Blood 01/26/2024 3:50 PM CDT 01/26/2024 5:33 PM CDT Shabbir Arndt MD LAB BLOOD ORDERABLES Final Resul t Performing Organization Address [facility] Co de Phone Number [address] [address] * eGFR (11/11/2021 4:43 AM CDT) eGFR 99 mL/min/1. 73 m2 [facility] Comment: Interpretive Data Reference Interval Normal [...] BLOOD ORDERABLES Final Result Performing Organization Address [facility] Co de Phone Number [address] [employer] [place] [address] * PSA screen (03/26/2021 7:35 AM CDT) [...] BLOOD ORDERABLES Final Result Performing Organization Address [facility] de Phone Number [facility] [address] [place] [address] * Hepatitis C antibody (03/26/2021 7:35 AM CDT) Pathologist [facility] Hep C Ab NON-REACTI VE NON-REACT TAYLOR [facility] SIGNAL TO CUT-OFF 0.01 <1.00 [facility] Comment: HCV antibody was non-reactive. There is no laboratory evidence of HCV infection. In most cases, no further action is required. However, if recent HCV exposure is suspected, a test for HCV RNA (test code 89560) is suggested. For additional information please refer to http://education.Tervela/faq/DBP48a3 (This link is being provided for informational/ educational purposes only.) 03/26/2021 7:35 AM CDT 03/26/2021 7:38 AM CDT Narrative [facility] - 03/27/2021 1:46 PM CDT FASTING:YES FASTING: YES Elan Calderon MD LAB MICROBIOLOGY - G ENERAL ORDERABLES Final Result Performing Organization Address [facility] Co de Phone Number [facility] [address] [place] [address] * Albumin Creatinine Ratio, Urine (03/26/2021 7:35 AM CDT) Pathologist [facility] Creatinine, ur 56 20 - 320 mg/dL [...] LAB URINE ORDERABLES Final Result [facility] [address] [facility] [place] [address] * (ABNORMAL) Lipid panel (03/26/2021 7:35 AM CDT) Pathologist [facility] Cholesterol 222(H) <200 mg/dL [facility] [...] LDL-C. Earl SS et al. AUDREY. 2013;310(19): 8839-2324 (http://education.Art of Defence.Vivint Solar/faq/BGW760) Chol/HDL ratio 5.4(H) <5.0 (calc) [facility] [...] BLOOD ORDERABLES Final Result Performing Organization Address City/State/[facility] Co de Phone Number [facility] [address] [place] [address] * Colonoscopy (01/17/2020) Anatomical Region Laterality Modality Other Historical Provider ENDOSCOPY PROCEDURES Nadiya l Result * DIABETES FOOT EXAM (11/22/2018) Diabetic Foot Exam Normal Historical Provider HEALTH MAINTENANCE Final Result from Last 3 Months or Most Recently Relevant to Health Maintenance [facility] Advance Directives For more information, please contact: [phone] Documents on File Type Date Recorded Patient Bench Mover Expl anation ADVANCE DIRECTIVE 11/05/2021 3:09 PM Power of Backhaul Driver-Medical * Full Code (Latest Code Status on File) Date Activated Date Inactivated Comments 10/31/2021 10:48 PM 11/11/2021 10:17 PM * Full Code Date Activated Date Inactivated Comments 08/15/2021 2:04 AM 08/22/2021 8:59 PM Healthcare Agents on File Name Relationship Healthcare Agent Relationshi p Communication Shannon Walsh Spouse Health Care Agent Care Teams Induction Coordination Power Engineer Relationship Specialty Start Date End Date Elan Calderon MD [address] [place] [address] PCP - General Family Medicine 12/19/19 Cecil Jones MD [address] [place] [address] [address] Consulting Physician Vascular Surgery 08/21/21
--- OUTSIDE RECORDS SUMMARY | 2025-02-06 18:37 | XMS_ITS | Continuity of Care Document ---
Author Name [facility] Organization [facility] Care Team Providers Care Down Filler Name Role Phone [facility] Unavailable Unavailable Problems Combined list of problems [...] ORAL, ZYDUS PHARMACEU, 500 ea. BOTTLE Active [id number] 2023 90 Pharmac y Data Transac tion Service Facilit y FENOFIBRATE (fenofibrat e), 160 MG, TABLET, ORAL, AJANTA PHARMA L, 90 ea. BOTTLE Active [id number] 4 2023 90 Pharmac y Data Transac tion Service Facilit y METFORMIN HCL (METFORMIN HCL), 1000 MG, TABLET, ORAL, ZYDUS PHARMACEU, 1000 ea. BOTTLE Active [id number] 2023 180 Pharmac y Data Transac tion Service Facilit y METOPROLOL SUCCINATE (metoprolol succinate), 25 MG, TAB ER 24H, ORAL, INGENUS PHARMAC, 1000 ea. BOTTLE Active [id number] 4 2023 90 Pharmac y Data Transac tion Service Facilit y Allergies, Adverse Reactions, Alerts Combined list of allergies from Department of Defense and Veterans Affairs facilities. It does not include entries that were removed or entered in error. Substance Category Reaction Severity Reaction type Status Date Reported Comments Source No Known Allergies Drug allergy (disorder) active 01/13/2007 [facility] ([facility]) Immunizations Combined list of available immunizations from the Department of Defense and Veterans Affairs facilities. Immunization Series Date Given Administered By Site Reaction Lot Number CVX Code Drug Program Eligibility Specialist Status Comments Source influenza, injectable, quadrivalent- pf 2017 zzLef t Arm [id number] Seqirus complet ed influenza , injectabl e, quadrival ent-pf 06/28/18 Given Ambulat ory Pharmac y Influenza, injectable, quadrivalent, preservative free 1 2017 Unknown, Provider [id number] Seqirus (SEQ) complet ed Influenza , [...] preservat cosme DoD influenza, seasonal, injectable-pf 2012 [facility] Arm [id number] sanofi pasteur complet ed influenza , seasonal, injectabl e-pf 06/17/13 Given Ambulat ory Pharmac y Influenza, seasonal, injectable, preservative free 11 2012 Unknown, Provider [id number] 140 Sanofi Pasteur (PMC) complet ed Influenza , seasonal, injectabl e, preservat cosme free DoD tetanus, diphtheria, acellular pertu is [facility] [id number] 115 sanofi pasteur complet ed tetanus, diphtheri a, acellular pertussis 10/27/06 Given Ambulat ory Pharmac y tetanus toxoid, reduced diphtheria toxoid, and acellular pertu is vaccine, adsorbed 1 2006 Unknown, Provider [id number] 115 Sanofi Pasteur (PMC) complet ed tetanus toxoid, reduced diphtheri a toxoid, and acellular pertussis vaccine, adsorbed DoD influenza virus vaccine,split [facility] [id number] 15 GlaxoSmithKli ne complet ed influenza virus vaccine,s plit 08/10/06 Given Ambulat ory Pharmac y influenza virus vaccine, split virus (incl. purified surface antigen)-reti red CODE 1 2005 Unknown, Provider [id number] 15 [facility] influenza virus vaccine, split virus (incl. purified surface antigen)- retired CODE DoD influenza virus vaccine,split 2004 zzLef t Arm [id number] 15 sanofi pasteur complet ed influenza virus vaccine,s plit 07/17/05 Given Ambulat ory Pharmac y influenza virus vaccine, split virus (incl. purified surface antigen)-reti red CODE 1 2004 Unknown, Provider [id number] 15 Sanofi Pasteur (PMC) complet ed influenza virus vaccine, split virus (incl. purified surface antigen)- retired CODE DoD influenza virus vaccine,split 2004 zzL t Arm [id number] 15 sanofi pasteur complet ed influenza virus vaccine,s plit 10/23/04 Given Ambulat ory Pharmac y influenza virus vaccine, split virus (incl. purified surface antigen)-reti red CODE 1 2004 Unknown, Provider [id number] 15 Sanofi Pasteur (PMC) complet ed influenza virus vaccine, split virus (incl. purified surface antigen)- retired CODE DoD influenza virus vaccine, whole virus 2002 zzL t Arm [id number] 16 sanofi pasteur complet ed influenza virus vaccine, whole virus 06/19/03 Given Ambulat ory Pharmac y influenza virus vaccine, whole virus 1 2002 Unknown, Provider [id number] 16 Sanofi Pasteur (PMC) complet ed influenza virus vaccine, whole virus DoD typhoid vaccine, inactivated [facility] [id number] sanofi pasteur complet ed typhoid vaccine, inactivat ed 07/19/02 Given Ambulat ory Pharmac y typhoid vaccine, parenteral, other than acetone-kille d, dried 1 2001 Unknown, Provider [id number] Sanofi Pasteur (PMC) complet ed typhoid vaccine, parentera l, other than acetone-k illed, dried DoD influenza virus vaccine, whole virus 2001 [id number] [place] [facility] complet ed influenza virus vaccine, whole virus 07/15/02 Given Ambulat ory Pharmac y influenza virus vaccine, whole virus 1 2001 Unknown, Provider [id number] 16 [facility] ([facility]) complet ed influenza virus vaccine, whole virus DoD yellow fever vaccine [facility] Arm [id number] 37 sanofi pasteur complet ed yellow fever vaccine 05/12/02 Given Ambulat ory Pharmac y yellow fever vaccine 1 2001 Unknown, Provider [id number] Sanofi Pasteur (PMC) complet ed yellow fever vaccine DoD meningococcal polysaccharid e (MPSV4) [facility] [id number] 32 sanofi pasteur complet ed meningoco ccal polysacch aride (MPSV4) 05/10/02 Given Ambulat ory Pharmac y meningococcal polysaccharid e vaccine (MPSV4) 1 2001 Unknown, Provider [id number] 32 Sanofi Pasteur (PMC) complet ed meningoco ccal polysacch aride vaccine (MPSV4) DoD tuberculin purified protein derivative 2001 [id number] sanofi pasteur complet ed tuberculi n purified protein derivativ e 03/15/02 Given Ambulat ory Pharmac y influenza virus vaccine, whole virus 2000 zzLef t Arm [id number] 16 sanofi pasteur complet ed influenza virus vaccine, whole virus 07/01/01 Given Ambulat ory Pharmac y influenza virus vaccine, whole virus 1 2000 Unknown, Provider [id number] 16 Sanofi Pasteur ([facility]) complet ed influenza virus vaccine, whole virus DoD typhoid vaccine, inactivated 2000 zzLef t Arm [id number] sanofi pasteur complet ed typhoid vaccine, inactivat ed 09/22/00 Given Ambulat ory Pharmac y tuberculin purified protein derivative 2000 zzLef t Arm [id number] 96 sanofi pasteur complet ed Patient Tolerance : Negative Ambulat ory Pharmac y typhoid vaccine, parenteral, other than acetone-kille d, dried 1 2000 Unknown, Provider [id number] Sanofi Pasteur ([facility]) complet ed typhoid vaccine, parentera l, other than acetone-k illed, dried DoD tuberculin skin test; purified protein derivative solution, intradermal 1 2000 Unknown, Provider [id number] 96 Sanofi Pasteur ([facility]) complet ed tuberculi n skin test; purified protein derivativ e solution, intraderm al DoD influenza virus vaccine, whole virus 2000 zzLef t Arm [id number] 16 [place] [facility] complet ed influenza virus vaccine, whole virus 09/03/00 Given Ambulat ory Pharmac y influenza virus vaccine, whole virus 1 2000 Unknown, Provider [id number] 16 [facility] ([facility]) complet ed influenza virus vaccine, whole virus DoD influenza virus vaccine, whole virus 1998 [id number] 16 [facility] complet ed influenza virus vaccine, whole virus 06/27/99 Given Ambulat ory Pharmac y influenza virus vaccine, whole virus 1 1998 Unknown, Provider [id number] 16 [facility] influenza virus vaccine, whole virus DoD influenza virus vaccine, whole virus [id number] 16 [facility] complet ed influenza virus vaccine, whole virus 07/23/98 Given Ambulat ory Pharmac y influenza virus vaccine, whole virus 2 1997 Unknown, Provider [id number] 16 [facility] (CON) complet ed influenza virus vaccine, whole virus DoD tuberculin purified protein derivative 1997 [id number] [facility] complet ed Patient Tolerance : Negative [...] intradermal 1 1997 Unknown, Provider [id number] [facility] (CON) complet ed tuberculi n skin test; [...] tetanus and diphtheri a toxoids, adsorbed, preservat ocsme free, for adult use (2 Lf of [...] ADM Date DC Date Status Disposition Source [address] [place] [address] Elan [facility] Non-GME FHI1) OUTPATIENT [id number] WERO Corbett 06/10 Released w/o Limitations [address] [place] [address] Elan [facility]F amily Practic e Non-GME FHI1) [address] [place] [address] Elan Shanika [facility] Non-GME FHI1) TELE CONSULT [id number] WERO LARSON 06/[address] [place] [address] Elan [facility])(F amily Practic e Non-GME FHI1) [address] [place] [address] Elan GERBER [facility])([facility] Non-GME FHI1) TELE CONSULT [id number] wants to speak with pcm MAULIK SAHA 06/[address] [place] [address] Elan [facility])(F amily Practic e Non-GME FHI1) [address] [place] [address] [employer] ([facility]Pt Neuromusc uloskelet al Clinic) OUTPATIENT [id number] right knee pain JOHN STOUT 07/02 Released with Work/Duty Limitations [facility] [employer] ([facility])(P t Neuromu sculosk eletal Clinic) [facility] [employer] ([facility])(Phy sical Therapy) OUTPATIENT [id number] JAROCHO CARROLL 07/10 Released w/o Limitations [employer] ([facility])(P hysical Therapy ) [facility] [employer] ([facility])(Phy sical Therapy) OUTPATIENT [id number] PAULETTE BARILLAS 07/15 Released w/o Limitations [facility] [employer] ([facility])(P hysical Therapy ) [facility] [employer] ([facility])(Phy sical Therapy) OUTPATIENT [id number] ALVINO ROSS 07/17 Released w/o Limitations [facility] [employer] ([facility])(P hysical Therapy ) [facility] [employer] ([facility])(Opt ometry) OUTPATIENT [id number] eye exam ARJUN GREY 09/04 Released w/o Limitations [facility] [employer] ([facility])(O ptometr y) [facility] [employer] ([facility])(Fam venu Practice Non-GME FHI1) OUTPATIENT [id number] back pain WERO LARSON 10/07 Released w/o Limitations [facility] [employer] ([facility])(F amily Practic e Non-GME FHI1) [facility] [employer] ([facility])(Phy sical Therapy) OUTPATIENT [id number] BACKACH E JOHN STOUT 10/28 Released w/o Limitations [employer] ([facility])(P hysical Therapy ) [facility] [employer] ([facility])(Fam venu Practice Non-GME FHI1) OUTPATIENT [id number] Discuss Sleep Disorde rs WERO LARSON 05/14 Released w/o Limitations [facility] [employer] ([facility])(F amily Practic e Non-GME FHI1) [facility] [employer] ([facility])(Fam venu Practice Non-GME FHI2) OUTPATIENT [id number] sinuses and sore throat ALIX NOONAN 05/20 Released w/o Limitations [employer] ([facility])(F amily Practic e Non-GME FHI2) [employer] ([facility])(Fam venu Practice Non-GME FHI2) OUTPATIENT [id number] Knee pain ALIX NOONAN 05/29 Released w/o Limitations [employer] ([facility])(F amily Practic e Non-GME FHI2) [employer] ([facility])(Phy sical Therapy) OUTPATIENT [id number] tendoni JOHN Weber 06/01 Released w/o Limitations [employer] ([facility])(P hysical Therapy ) [employer] ([facility])(Phy sical Therapy) OUTPATIENT [id number] LORENA CARMONA 06/03 Released w/o Limitations [employer] ([facility])(P hysical Therapy ) [employer] ([facility])(Phy sical Therapy) OUTPATIENT [id number] JAROCHO CARROLL P 06/05 Released w/o Limitations [employer] ([facility])(P hysical Therapy ) [employer] ([facility])(Phy sical Therapy) OUTPATIENT [id number] JAROCHO CARROLL P 06/09 Released w/o Limitations [employer] ([facility])(P hysical Therapy ) [employer] ([facility])(Phy sical Therapy) OUTPATIENT [id number] AMANUEL DAN 06/11 Released w/o Limitations [employer] ([facility])(P hysical Therapy ) [employer] ([facility])(Phy sical Therapy) OUTPATIENT [id number] AMANUEL DAN W 06/16 Released w/o Limitations [employer] ([facility])(P hysical Therapy ) [employer] ([facility])(Phy sical Therapy) OUTPATIENT [id number] AMANUEL DAN W 06/18 Released w/o Limitations [employer] ([facility])(P hysical Therapy ) [employer] [facility]Phy sical Therapy) OUTPATIENT [id number] LORENA CARMONA W 06/23 Released w/o Limitations [address] [place] [address] Elan B [facility]P hysical Therapy ) [address] [place] [address] [employer]an B [facility])(Phy sical Therapy) OUTPATIENT [id number] LORENA CARMONA W 06/30 Released w/o Limitations [address] [place] [address] Elan [facility])(P hysical Therapy ) [address] [place] [address] Elan [facility])([facility]) OUTPATIENT [id number] TOMASA CARABALLO 09/10 Released w/o Limitations [address] [place] [address] Elan B [facility]) [address] [place] [address] Elan [facility])(Fam venu Practice Non-GME FHI1) TELE CONSULT [id number] call back lab results SINAI ALVAREZ 09/[address] [place] [address] Elan [facility])(F amily Practic e Non-GME FHI1) [address] [place] [address] Elan [facility])(Fam venu Practice Non-GME FHI1) TELE CONSULT [id number] lab results SINAI ALVAREZ 10/[address] [place] [address] Elan [facility])(F amily Practic e Non-GME FHI1) [address] [place] [address] Elan [facility])([facility] venu Practice Non-GME FHI1) OUTPATIENT [id number] f/u labs (hyertr iglycer ides and r/o DM) LOKI GRAHAM 10/22 Released w/o Limitations [address] [place] [address] Elan IYERB [facility])(F amily Practic e Non-GME FHI1) [address] [place] [address] Elan B [facility])([facility] venu Practice Non-GME FHI1) OUTPATIENT [id number] immun LOKI GRAHAM 10/27 Released w/o Limitations [address] [place] [address] Elan [facility])(F amily Practic e Non-GME FHI1) [address] [place] [address] Elan [facility])([facility] venu Practice Non-GME FHI1) TELE CONSULT [id number] BASSAM Fox 01/[address] [place] [address] Elan GERBER ([facility])(F amily Practic e Non-GME FHI1) Procedures Combined list of: 1) Procedures from Department of Veterans Affairs facilities going back up to thelast 18 months, not all VA non-surgical procedures are included; 2) All procedures from the Department of Defense facilities. Procedure Procedure Type Code Date Perfomer Comments Sour e Tdap Vaccine Tdap Vaccine 63402 007 DOLORES GOMEZ DoD Modalities Electrical Stimulation Unattended Modalities Electrical Stimulation Unattended 21790 KRISTINE, LORENA W DoD Modalities Heat Hot Packs Modalities Heat Hot Packs 87716 KRISTINE, LORENA W [facility] Physical Therapy: ___ Se ion Segments, 15 Minutes Each Physical Therapy: ___ Session Segments, 15 Minutes Each 18930 KRISTINE, LORENA W DoD Modalities Heat Hot Packs Modalities Heat Hot Packs 76740 KRISTINE, LORENA W DoD Modalities Electrical Stimulation Unattended Modalities Electrical Stimulation Unattended 56780 KRISTINE, LORENA W [facility] Physical Therapy: ___ Se ion Segments, 15 Minutes Each Physical Therapy: ___ Session Segments, 15 Minutes Each 21273 KRISTINE, LORENA W DoD Modalities Electrical Stimulation Unattended Modalities Electrical Stimulation Unattended 17433 DANAMANUEL BAINS DoD Modalities Heat Hot Packs Modalities Heat Hot Packs 16398 NI, AMANUEL W DoD Physical Therapy: ___ Se ion Segments, 15 Minutes Each Physical Therapy: ___ Session Segments, 15 Minutes Each 28141 DAN, AMANUEL W DoD Modalities Electrical Stimulation Unattended Modalities Electrical Stimulation Unattended 74080 AMANUEL DAN W DoD Modalities Heat Hot Packs Modalities Heat Hot Packs 46335 AMANUEL DAN W DoD Modalities Electrical Stimulation Unattended Modalities Electrical Stimulation Unattended 50963 AMANUEL DAN W DoD Modalities Heat Hot Packs Modalities Heat Hot Packs 68496 AMANUEL DAN W DoD Modalities Electrical Stimulation Unattended Modalities Electrical Stimulation Unattended 83274 JAROCHO CARROLL DoD Modalities Heat Hot Packs Modalities Heat Hot Packs 62733 006 JAROCHO CARROLL [employer]in [place] Modalities Electrical Stimulation Unattended Modalities Electrical Stimulation Unattended 20972 [place] JAROCHO Jostin [place] Modalities Heat Hot Packs Modalities Heat Hot Packs 08626 006 [place] JAROCHO Jostin [place] Modalities Heat Hot Packs Modalities Heat Hot Packs 20168 VLADIMIR CARMONAOTHY [place] Modalities Electrical Stimulation Unattended Modalities Electrical Stimulation Unattended 70634 VLADIMIR CARMONAARPAN [place] Physical [facility] Physical Therapy Evaluation Physical Medicine Physical Therapy Evaluation 19622 006 JOHN STOUT Modalities Heat Hot Packs Modalities Heat Hot Packs 49913 JOHN STOUT Modalities Electrical Stimulation Unattended Modalities Electrical Stimulation Unattended 76555 006 JOHN STOUT IFC to the right knee, zero to 100 Hz -- 20 minutes [facility] Physical Medicine Physical Therapy Evaluation Physical Medicine Physical Therapy Evaluation 82732 006 JOHN STOUT Physical Therapy: ___ Se ion Segments, 15 Minutes Each Physical Therapy: ___ Session Segments, 15 Minutes Each 50397 006 JOHN STOUT Ophthalmological New Patient Start Comprehensive Care Ophthalmological New Patient Start Comprehensive Care 36051 006 ARJUN GREY Determination Of Refractive State Determination Of Refractive State 42854 006 ARJUN GREY [employer] [facility] Fitting Monofocals (Not For Aphakia) [employer] [facility] Fitting Monofocals (Not For Aphakia) 71945 006 ARJUN GREY Visual Reddy Test Intermediate Examination Visual Reddy Test Intermediate Examination 53962 006 ARJUN GREY Modalities Heat Hot Packs Modalities Heat Hot Packs 71053 005 ALVINO ROSS Modalities Electrical Stimulation Modalities Electrical Stimulation 95973 005 ALVINO ROSS Modalities Electrical Stimulation Modalities Electrical Stimulation 00941 005 PAULETTE BARILLAS Modalities Heat Hot Packs Modalities Heat Hot Packs 00380 005 PAULETTE BARILLAS [facility] Modalities Electrical Stimulation Modalities Electrical Stimulation 39751 005 JAROCHO CARROLL DoD Modalities Heat Hot Packs Modalities Heat Hot Packs 75283 005 JAROCHO CARROLL DoD Modalities Heat Hot Packs Modalities Heat Hot Packs 30164 005 JOHN STOUT [facility] Physical Medicine Physical Therapy Evaluation Physical Medicine Physical Therapy Evaluation 96131 JOHN STOUT [facility] Modalities Electrical Stimulation Modalities Electrical Stimulation 08910 005 JOHN STOUT IFC to the right knee x 20 minutes. DoD SCANNING COMPUTERIZED OPHTHALMIC DIAGNOSTIC IMAGING, POSTERIOR SEGMENT, (EG, SCANNING LASER) WITH INTERPRETATION AND REPORT, UNILATERAL DoD PHOTOREFRACTIVE KERATECTOMY (PRK) [facility] PHYS/OTH QUALIFIED HEALTH STUDY ABROAD COORDINATOR QUALIFIED,EDUCATION ,TRAIN,LICENSURE/RE GULATION (WHEN APPLICABLE) EDUC SER RENDERED TO PATS IN A GRP SETTING (EG,,OBESIT Y,OR DIABETIC INSTRUCT) DoD PHYS/OTH QUALIFIED HEALTH STUDY ABROAD COORDINATOR QUALIFIED,EDUCATION ,TRAIN,LICENSURE/RE GULATION (WHEN APPLICABLE) EDUC SER RENDERED TO PATS IN A GRP SETTING (EG,,OBESIT Y,OR DIABETIC INSTRUCT) [facility] TONOGRAPHY WITH INTERPRETATION AND REPORT, [...] OR MORE AREAS; HOT OR COLD PACKS DoD APPLICATION OF A MODALITY TO 1 OR MORE AREAS; HOT OR COLD PACKS DoD APPLICATION OF A MODALITY TO 1 [...] MORE REGIONS, EACH 15 MINUTES 003 DoD MANUAL THERAPY TECHNIQUES (EG, MOBILIZATION/ MANIPULATION, MANUAL LYMPHATIC DRAINAGE, MANUAL TRACTION), 1 OR MORE REGIONS, EACH 15 MINUTES 003 DoD No data available for this section Ambulato ry Pharmacy Social History Combined list of available smoking, tobacco, and other social history from Department of Defense and Veterans Affairs facilities. Social History Type Response Date Comment [facility] e This section is an empty social [...] of Defense and Veterans Affairs (VA).VA Functional Schoolcraft Measurement (FIM) Scale: 1 = Total Assistance (Subject = 0% +), 2 = Maximal Assistance (Subject = 25% +), 3 = Moderate Assistance (Subject = 50% +), 4 = Minimal Assistance (Subject = 75% +), 5 = Supervision, 6 = Modified Schoolcraft (Device), 7 = Complete Schoolcraft (Timely, Safely). Assessment Date/Time Source Assessment Type Assessment Skill Assessment Score Assessment Details No data available for this section
--- OUTSIDE RECORDS SUMMARY | 2025-02-06 18:37 | XMS_ITS | Referral Summary ---
Author Organization [address] Address [address] [address] Care Team Providers Care Betting Agency Counter Clerk Name Role Phone Elan Calderon MD Primary Care Provid er Cecil Jones MD Unavailable [phone] Encounters Date Type Department Care Team Description 02/01/2025 Telephone [facility] Family Medicine [address] [address] Elan Calderon MD Medical Question/Miscellaneous [...] 08/22/20 21 Active blood-glucose meter,continuous ([employer] G6 [employer]) miscIndications:Un controlled type 2 diabetes mellitus with [...] Information Patient not taking.Reported on 06/16/2024 omega 1-rmr-qwr-fish oil 1,000 mg (120 mg-180 mg) capsule [...] 10/31/2021 Assessment & Plan (10/31/2021 8:50 PM TAPE STRINGER): Vanc and unasyn started in ER, will switch unasyn to cefepime for pseudomonal coverage. Vascular surgery consulted in eR Sepsis 08/22/2021 Abscess of left foot 08/22/2021 Assessment & Plan (09/06/2021 1:37 PM TAPE STRINGER): Impression: Patient is status post incision drainage [...] 08/14/2021 Assessment & Plan (10/31/2021 8:50 PM TAPE STRINGER): Pt may use own cpap Tobacco dependence due to cigarettes 08/14/2021 Chronic cervical radiculopathy 02/22/2021 Benign essential tremor 11/22/2018 Dyslipidemia 11/06/2017 Assessment & Plan (10/31/2021 8:55 PM TAPE STRINGER): Cont statin Benign essential hypertension 07/17/2016 Diabetic neuropathy 07/17/2016 Assessment & Plan (10/31/2021 8:50 PM TAPE STRINGER): Cont home meds Idiopathic gout 07/17/2016 Paresthesia 07/17/2016 Testicular hypofunction 07/17/2016 Inadequately controlled diabetes mellitus 2015 Assessment & Plan (10/31/2021 8:51 PM TAPE STRINGER): Cont lantus, SS coverage Osteomyelitis of great toe of left foot Encounter for management of wound VAC Immunizations Immunization Administration Dates Next Due Influenza, Quadrivalent, Spl it, Preservative Free, Intramuscular 07/24/2023,08/22/2021,08/01/2020 Influenza, Unspecified 05/31/2022 Bluebox SARS-CoV-2 Monovalent Vaccination (12+ Yrs) PURPLE 12/04/2020,11/12/2020 [...] on file Legal Sex Male 7:52 PM TAPE STRINGER Gender Identity Male 09/28/2021 9:33 AM TAPE STRINGER Sexual Orientation Straight 09/28/2021 9: 33 AM TAPE STRINGER 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 (Diabetes Care 31:4247-6438, 2008). The eAG is not equivalent to a fasting glucose. Blood 01/26/2024 3:50 PM CDT 01/26/2024 5:33 PM CDT Shabbir Arndt MD LAB BLOOD ORDERABLES Final Resul t [facility] [address] [facility] [place] [address] * eGFR (11/11/2021 4:43 AM [...] BLOOD ORDERABLES Final Result Performing Organization Address City/[facility]/ZIP Co de Phone Number [facility] [address] [facility] [place] [address] * PSA screen (03/26/2021 7:35 AM CDT) Pathologist [facility] PSA 0.5 < OR = 4.0 ng/mL [facility] Comment: The total PSA value from [...] LAB BLOOD ORDERABLES Final Result [facility] [address] [place] [address] * Hepatitis C antibody (03/26/2021 7:35 AM CDT) Hep C Ab NON-REACTI VE NON-REACT [facility]AY[facility] SIGNAL TO CUT-OFF 0.01 <1.00 [facility] Comment: HCV antibody was non-reactive. There is no laboratory evidence of HCV infection. In most cases, no further action is required. However, if recent HCV exposure is suspected, a test for HCV RNA (test code 94246) is suggested. For additional information please refer to http://education.Sendori/faq/UBM60a0 (This link is being provided for informational/ educational purposes only.) 03/26/2021 7:35 AM CDT 03/26/2021 7:38 AM CDT Narrative [facility] - 03/27/2021 1:46 PM CDT FASTING:YES FASTING: YES Elan Calderon MD LAB MICROBIOLOGY - G ENERAL ORDERABLES Final Result Performing Organization Address City/[facility] de Phone Number [facility] [address] [place] [address] * Albumin Creatinine Ratio, Urine (03/26/2021 7:35 AM CDT) Pathologist [facility] Creatinine, ur 56 20 - 320 mg/dL [...] LAB URINE ORDERABLES Final Result [facility] [address] [place] [address] * (ABNORMAL) Lipid panel (03/26/2021 7:35 AM [...] LDL-C. Earl LOPEZ et al. AUDREY. 2013;310(19): 1241-1166 (http://education.Bleacher Report.sCoolTV/faq/ORN428) Chol/HDL ratio 5.4(H) <5.0 (calc) [facility] [...] BLOOD ORDERABLES Final Result [facility] [address] [address] * Colonoscopy (01/17/2020) Anatomical Region Laterality Modality Other Historical Provider ENDOSCOPY PROCEDURES Nadiya l Result * DIABETES FOOT EXAM (11/22/2018) Diabetic Foot Exam Normal Historical Provider HEALTH MAINTENANCE Final Result from Last 3 Months or Most Recently Relevant to Health Maintenance Insurance [facility] H[facility] Address: [address] [place] [address] [facility] [place] [address] Advance Directives For more information, please contact: [phone] Documents on File Type Date Recorded Patient Mobile Application Architect Expl anation ADVANCE DIRECTIVE 11/05/2021 3:09 PM Power of Travel Registered Nurse [employer] * Full Code (Latest Code Status on File) Date Activated Date Inactivated Comments 10/31/2021 10:48 PM 11/11/2021 10:17 PM * Full Code Date Activated Date Inactivated Comments 08/15/2021 2:04 AM 08/22/2021 8:59 PM Healthcare Agents on File Name Relationship Healthcare Agent Relationshi p Communication Shannon Jillian Spouse Health Care Agent Care Teams Betting Agency Counter Clerk Relationship Specialty Start Date End Date Elan Calderon MD [address] [place] [address] PCP - General Family Medicine 12/19/19 Cecil Jones MD [address] [facility] [address] [place] [address] [address] Consulting Physician Vascular Surgery 08/21/21
--- NOTE | 2025-02-06 18:47 | ED_ITS ---
HPI - General Adult General Chief complaint: Recheck/Abnormal Lab/Rx Stated complaint: high BS Time Seen by Provider: 02/06/25 17:02 History of Present Illness HPI narrative: This is a 59-year-old male history of diabetes presenting for elevated blood sugars. Patient says his blood sugars been elevated for 4 months. He tried to call his automation design engineer in the upper tired. He then protocols primary care physician they cannot get him in for 2 months and will go to the ED for further management. This time the patient has no complaints outside his typical neuropathy. Denies fevers chills chest pain difficulty breathing abdominal pain urinary symptoms. He has been taking his metformin Jardiance as directed. Related Data Home Medications ?Medication ?Instructions ?Recorded ?Confirmed ?Last Taken ?Type allopurinol 300 mg tablet 300 mg PO DAILY 12/09/22 12/09/22 12/09/22 History aspirin 81 mg tablet,delayed 81 mg PO DAILY 12/09/22 12/09/22 1 Day Ago History release ~12/08/22 empagliflozin 10 mg tablet 10 mg PO DAILY 12/09/22 12/09/22 12/09/22 History (Jardiance) fenofibrate 160 mg tablet 160 mg PO DAILY 12/09/22 12/09/22 12/09/22 History metformin 1,000 mg tablet 1,000 mg PO BID 12/09/22 12/09/22 12/09/22 History metoprolol succinate 25 mg 25 mg PO DAILY 12/09/22 12/09/22 12/09/22 History tablet,extended release 24 hr omega-3 acid ethyl esters 1 gram 1 g PO DAILY 12/09/22 12/09/22 12/09/22 History capsule simvastatin 40 mg tablet 40 mg PO DAILY 12/09/22 12/09/22 12/09/22 History Allergies Allergy/AdvReac Type Severity Reaction Status Date / Time No Known Allergies Allergy Verified 02/06/25 17:02 [facility] Past Medical History Medical History Amputated toe Below knee amputation left bka Diabetes Gout Hyperlipidemia associated with type 2 diabetes mellitus Hypertension Surgical History Surgical History H/O eye surgery Hx of cataract extraction Family History Family History Mother Diabetes mellitus Hyperlipidemia associated with type 2 diabetes mellitus Father Diabetes mellitus Hyperlipidemia associated with type 2 diabetes mellitus Hypertension Lung cancer Sibling Cerebrovascular accident Social History Social History Social History: 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 He lives with his . He has 4 children . His is the durable power workers compensation attorney for healthcare Code status full code Smoking packs per day: 0.75 Smoking cigarettes per day: 15.0 Years smoked: 15 Smoking pack-years: 11.25 Smoking status: Current every day smoker Tobacco type: cigarettes Alcohol intake: current Lack of Transportation: No Lack of Food: Never True Current Housing: I Have Housing Concerned About Future Housing: No Difficulty Paying Gas/Electric Bills: No Difficulty Paying for Meds: No Currently Unemployed: No Education: Associate Degree Difficulty w/ Childcare or Family Care: No Spiritual care concerns: No Exam 2 Narrative: APPEARANCE: No apparent distress. Head: atraumatic. EYES: EOMI, NOSE: Atraumatic NECK: Trachea midline RESPIRATORY: No increased rate of breathing for ulceration CARDIOVASCULAR: RRR, ABDOMINAL: Non-distended soft nontender MUSCULOSKELETAl: Left BKA with callus formation over the stump slight split in the callus without true ulceration or signs of infection NEURO: Alert. Moving 4/4 extremities SKIN:: Warm, dry. Normal color PSYCHIATRIC: Normal affect Course Vital Signs Vital signs: Vital Signs Temperature 97.6 F 02/06/25 17:04 Pulse Rate 52 L 02/06/25 17:04 Respiratory Rate 16 02/06/25 17:04 Blood Pressure 173/72 H 02/06/25 17:04 Pulse Oximetry 96 02/06/25 17:04 Temperature 97.6 F 02/06/25 17:04 Pulse Rate 60 02/06/25 17:58 Respiratory Rate 20 02/06/25 17:58 Blood Pressure 157/81 H 02/06/25 17:58 Pulse Oximetry 96 02/06/25 17:58 Medical Decision Making MDM Narrative Medical decision making narrative: -Course: 59-year-old male presenting ED for elevated blood sugars. He is otherwise asymptomatic. His lab work shows elevated blood sugar but no evidence of DKA/HHS. Patient needs a referral to a primary care physician. This was provided. Given return precautions. -DDX includes but is not limited to: Hypo hyperglycemia diabetes, DKA, HHS Vital Signs Vital Signs: Vital Signs Temperature 97.6 F 02/06/25 17:04 Pulse Rate 52 L 02/06/25 17:04 Respiratory Rate 16 02/06/25 17:04 Blood Pressure 173/72 H 02/06/25 17:04 Pulse Oximetry 96 02/06/25 17:04 Temperature 97.6 F 02/06/25 17:04 Pulse Rate 60 02/06/25 17:58 Respiratory Rate 20 02/06/25 17:58 Blood Pressure 157/81 H 02/06/25 17:58 Pulse Oximetry 96 02/06/25 17:58 Lab Data 02/06/25 17:15 02/06/25 17:15 Labs: Lab Results 02/06/25 02/06/25 02/06/25 Range/Units 17:07 17:15 18:25 WBC 5.8 (4.5-10.0) K/mm3 RBC 5.41 (4.6-6.20) M/mm3 Hgb 16.9 (14.0-18.0) g/dL Hct 48.4 (42.0-52.0) % MCV 89.5 (80-100) fl MCH 31.2 (26-34) pg MCHC 34.9 (32-36) g/dl RDW 12.6 (11.5-14.5) % Plt Count 141 L (150-375) k/mm3 MPV 10.6 H (7.4-10.4) fl Immature Gran % (Auto) 0.3 (0-0.5) % Neut % (Auto) 52.1 (45.5-73.1) % Lymph % (Auto) 36.5 (18.3-44.2) % [place] % (Auto) 7.5 (2.6-8.5) % Eos % (Auto) 2.6 (0-4.4) % Baso % (Auto) 1.0 (0.2-1.2) % Lymph # (Auto) 2.13 (0.9-3.2) K/mm3 Warrick # (Auto) 0.4 (0.1-0.6) K/mm3 Eos # (Auto) 0.2 (0-0.3) K/mm3 Baso # (Auto) 0.1 (0.0-0.1) K/mm3 Abs Immat Gran (auto) 0.02 (0.00-0.031) K/mm3 Absolute Neuts (auto) 3.0 (1.3-6.7) K/mm3 Absolute Nucleated RBC 0.000 (0.0-0.012) K/mm3 Nucleated RBC % 0.0 (0.0-0.2) % Sodium 133 L (137-145) mmol/L Potassium 4.4 (3.4-5.0) mmol/L Chloride 98 (98-107) mmol/L Carbon Dioxide 26 (22-30) mmol/L Anion Gap 9 (4-12) mmol/L BUN 21 H (9-20) mg/dL Creatinine 0.94 (0.7-1.3) mg/dL Estim Creat Clear Calc 71 ml/min Estimated GFR > 60 (59 - ) Glucose 387 H (65-110) mg/dL POC Capillary Glucose 379 H (65-105) mg/dl Calcium 9.7 (8.4-10.2) mg/dL Total Bilirubin 0.8 (0.2-1.3) mg/dL AST 28 (17-59) U/L ALT 28 (6-50) U/L Alkaline Phosphatase 33 L (38-126) U/L Total Protein 7.5 (6.3-8.2) g/dL Albumin 4.6 (3.5-5.1) g/dL Urine Color Yellow (Yellow) Urine Appearance Clear (Clear) Urine pH 6.0 (5.0-9.0) Ur Specific [place] 1.028 (1.001-1.035) Urine Protein Negative (Negative) mg/dL Urine Glucose (UA) 3+ H (Negative) mg/dL Urine Ketones Negative (Negative) mg/dL Ur Blood (Man) Negative (Negative) Urine Nitrate Negative (Negative) Urine Bilirubin Negative (Negative) Urine Urobilinogen 0.2 (<2.0) mg/dL Leukocyte Esterase Rfl Negative (Negative) MIGUEL/UL Discharge Plan Discharge Clinical Impression: Hyperglycemia due to type 2 diabetes mellitus Patient Disposition: Home Condition: Stable Instructions: Antibiotic Form, Diabetic Hyperglycemia (ED) Additional Instructions: Please call the number listed below to establish care with a primary care physician. Please return if he develops any symptoms such as fevers, nausea, vomiting, abdominal pain, or if his condition is worsening. Patient Language: Macedonian Prescriptions: No Action aspirin 81 mg tablet,delayed release (DR/EC) 81 mg PO DAILY simvastatin 40 mg tablet 40 mg PO DAILY metformin 1,000 mg tablet 1,000 mg PO BID allopurinol 300 mg tablet 300 mg PO DAILY metoprolol succinate 25 mg tablet extended release 24 hr 25 mg PO DAILY omega-3 acid ethyl esters 1 gram capsule 1 g PO DAILY fenofibrate 160 mg tablet 160 mg PO DAILY Jardiance 10 mg tablet 10 mg PO DAILY sulfamethoxazole-trimethoprim 800-160 mg tablet 1 tablet PO Q12H Qty: 20 0RF valacyclovir [Valtrex] 1 gram tablet 1,000 mg PO TID Qty: 21 0RF Follow-up/Referrals: Deuce Pineda MD [Physician] - 1 Week (DM II. establish pcp) PHYSICIAN NOT ON STAFF,NONSTAFF [Primary Care Provider] -
== END 2025-02-06 19:22 | disposition home or self-care (01) ==
PROVIDERS: Registered Nurse; Emergency Provider Emergency Medicine
DX: E11.65 Type 2 diabetes mellitus with hyperglycemia (principal); I10 Essential (primary) hypertension; E11.69 Type 2 diabetes mellitus with other specified complication; E78.5 Hyperlipidemia, unspecified; M10.9 Gout, unspecified; F17.210 Nicotine dependence, cigarettes, uncomplicated; Z89.512 Acquired absence of left leg below knee; Z98.49 Cataract extraction status, unspecified eye; Z79.82 Long term (current) use of aspirin; Z79.84 Long term (current) use of oral hypoglycemic drugs; Z79.899 Other long term (current) drug therapy
CPT/HCPCS: 36415; 80053; 81003; 82948; 85025; 99283

== ENCOUNTER 2025-05-29 13:04 | Inpatient (IN) | payer OTHER, SELFPAY ==
[2025-05-29] VITALS (8 sets, daily range): BP systolic 113–136; BP diastolic 71–93; PULSE 77–89; RESP 15–18; TEMP 36.6–37.3; O2SAT 92–97; BMI 27.8
--- NOTE | ~2025-05-29 | CT_ITS ---
EXAMINATION: CT knee LT wo con DATE: 05/29/2025 18:08 INDICATION: Cellulitis TECHNIQUE: High resolution computed tomography (CT) of the left leg from the mid thigh through the stump of the left csemo-ubl-zekz amputation was performed without intravenous contrast. A small portion of the distalmost soft tissues overlying the osteotomy are excluded from the inciu-gi-gcmo. Additional sagittal and coronal reconstructions were performed. Automated exposure control and iterative reconstruction technique were employed. The dose-length product was 533.33 mGy-cm. COMPARISON: None FINDINGS: Left nryqs-keo-yocs amputation with smooth osteotomy margins, the majority of which appears corticated. There is a small portion of the central medullary space which is not solidly corticated but there is normal fatty marrow attenuation immediately underlying the osteotomy margin with no evident increa sed density to suggest marrow edema or osteomyelitis. There is skin thickening and subcutaneous edema along the soft tissues along the anterior margin of the distal tibial osteotomy margin consistent with given history of cellulitis. No abscess or soft tissue gas. Joint spaces at the left knee appears relatively preserved with no knee joint effusion. Small these findings at the osseous insertions of the distal quadriceps tendon and proximal and distal patellar tendon. IMPRESSION: 1. Status post left sgaht-goe-snas amputation with cellulitis contrast. Skin thickening and subcutaneous edema overlying the anterior tibial osteotomy margin. No abscess or findings to suggest osteomyelitis. Reviewed, dictated and finalized at location A. IMPRESSION: 1. Status post left edynn-asa-emja amputation with cellulitis contrast. Skin th ickening and subcutaneous edema overlying the anterior tibial osteotomy margin. No abscess or findings to suggest osteomyelitis.
--- NOTE | ~2025-05-29 | XR_ITS ---
EXAMINATION: XR knee LT min 4V DATE: 05/29/2025 14:04 INDICATION: Erythema TECHNIQUE: AP, 2 oblique and lateral views of the left knee were obtained. COMPARISON: None. FINDINGS: Alignment is normal. No fracture. Status post left aucro-zji-funi amputation with smoothly corticated tibial and fibular osteotomy margins. No evident cortical erosions or osteolysis to suggest osteomyelitis. Small these 5 cm the proximal pole of the patella and at the anterior tibial tuberosity. Joint spaces appear normal on nonweightbearing imaging. No joint effusion/layering lipohemarthrosis. Vascular calcifications at the posterior aspect of the distal thigh and remaining proximal calf. Soft tissues are unremarkable. IMPRESSION: 1. Status post left ezcwg-zqk-bsvm amputation. No left knee joint effusion, acute osseous abnormality or regions of cortical erosion/osteolysis to suggest osteomyelitis. Reviewed, dictated and finalized at location A. IMPRESSION: 1. Status post left qcqqk-htv-dsyq amputation. No left knee joint effusion, acu te osseous abnormality or regions of cortical erosion/osteolysis to suggest ost eomyelitis.
--- OUTSIDE RECORDS SUMMARY | 2025-05-29 13:20 | XMS_ITS | Clinical Summary ---
Author Organization [address] Address [address] [address] Care Team Providers Care Public Address Technician Name Role Phone Cecil Jones MD Unavailable [phone] Ekaterina Varma Primary Care Provider [phone] Allergies No known active allergies Medications alcohol swabs (Alcohol Wipes) pads, medicated Use as directed. 100 each 021 Active blood glucose strip-disp meter kit Use as directed. 1 kit Active Additional Information Patient not taking.Reported on 03/17/2025 OneTouch Verio test strips strip Use as directed up to four times a day. 100 each 1 021 Active Additional Information Patient not taking.Reported on 04/28/2025 lancets misc Use as directed up to 4 times a day. 100 each 1 021 Active OneTouch Verio Meter misc 021 Active omega 2-gwl-nqm-fish oil 1,000 mg (120 mg-180 mg) capsule Take 2 capsules (2,000 mg total) by mouth daily 180 capsule 3 023 Active gabapentin (NEURONTIN) 300 mg capsuleIndicati ons:Neuropathic Pain Take 1 capsule (300 mg total) by mouth 3 (three) times a day 90 capsule 11 024 06/16 Active icosapent ethyL (VASCEPA) 1 gram capsule TAKE 2 CAPSULES BY MOUTH EVERY DAY 180 capsule 3 Active fenofibrate (TRIGLIDE) 160 mg tabletIndicatio ns:Dyslipidemia TAKE 1 TABLET BY MOUTH EVERY DAY 90 tablet 3 Active allopurinoL (ZYLOPRIM) 300 mg tabletIndicatio ns:Idiopathic chronic gout of multiple sites without tophus TAKE 1 TABLET BY MOUTH EVERY DAY 90 tablet 3 Active simvastatin (ZOCOR) 40 mg tabletIndicatio ns:Dyslipidemia TAKE 1 TABLET BY MOUTH EVERY DAY AT NIGHT 90 tablet Active aspirin 81 mg enteric coated tabletIndicatio ns:Benign essential hypertension TAKE 1 TABLET BY MOUTH EVERY DAY 90 tablet Active losartan (COZAAR) 25 mg tablet Take 1 tablet (25 mg total) by mouth daily 30 tablet 11 02/14 Active miscellaneous medical supply misc 1 kit 2 (two) times a day as needed (as directed for blood pressure monitoring) 1 each Active insulin glargine 100 unit/mL (3 mL) pen for injection Inject 10 Units under the skin daily 45 mL 1 Active Additional Information Patient taking differently: 38 Unitssubcutaneous Daily, Reported on 04/28/2025 ergocalciferol (VITAMIN D) 50,000 unit capsule Take 1 capsule (50,000 Units total) by mouth once a week 12 capsule Active pen needle, diabetic (Unifine Pentips) 32 gauge x 5/32 needle Use to inject insulin QID 400 each Active blood-glucose transmitter deviceIndicatio ns:Uncontrolled type 2 diabetes mellitus with hyperglycemia (HCC),Benign essential tremor Use to check sugars throughout the day 1 each Active blood-glucose sensor deviceIndicatio ns:Uncontrolled type 2 diabetes mellitus with hyperglycemia (HCC),Benign essential tremor Use to check blood sugar throughout the day 1 each Active blood-glucose,r eceiver,cont miscIndications :Uncontrolled type 2 diabetes mellitus with hyperglycemia (HCC),Benign essential tremor Use to check blood sugars throughout the day 1 each Active metFORMIN XR (GLUCOPHAGE XR) 500 mg 24 hr tablet Take 2 tablets (1,000 mg total) by mouth 2 (two) times a day Active empagliflozin (Jardiance) 10 mg tabletIndicatio ns:Uncontrolled type 2 diabetes mellitus with hyperglycemia (HCC) TAKE 1 TABLET BY MOUTH EVERY DAY 90 tablet 1 025 Active semaglutide (Ozempic) 1 mg/dose (4 mg/3 mL) pen injector injection INJECT 1 MG UNDER THE SKIN EVERY 7 DAYS DISPENSE AFTER 0.25MG / 0.5MG 3 mL 1 025 Active empagliflozin (Jardiance) 10 mg tabletIndicatio ns:Uncontrolled type 2 diabetes mellitus with hyperglycemia (HCC) Take 1 tablet (10 mg total) by mouth daily 90 tablet 025 05/05 Discontinued semaglutide (OZEMPIC) 1 mg/dose (4 mg/3 mL) pen injector injection Inject 1 mg under the skin every 7 days DISPENSE after 0.25mg / 0.5mg 6 mL 025 05/09 Discontinued Active Problems Problem Noted Date Diagnosed Date 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 Patient recently received his prosthesis and will begin gait training soon. He has no open ulcerations of either lower extremity. Plan: Began utilizing left lower extremity prosthesis for ambulation needs. Patient follow-up on as-needed basis. Abscess of left foot 08/22/2021 Assessment & Plan (09/06/2021 1:37 PM WELLNESS PROGRAM COORDINATOR): Impression: Patient is status post incision drainage [...] therapy. Patient to follow-up in 2 weeks. Gangrene of left foot 08/14/2021 CHARITY on CPAP 08/14/2021 Assessment & Plan (04/28/2025 12:20 PM CDT): Assessment & Plan (10/31/2021 8:50 PM WELLNESS PROGRAM COORDINATOR): Pt may use own cpap Tobacco dependence due to cigarettes 08/14/2021 Assessment & Plan (04/28/2025 12:20 PM CDT): Chronic cervical radiculopathy 02/22/2021 Benign essential tremor 11/22/2018 Assessment & Plan (04/28/2025 12:20 PM CDT): Orders: blood-glucose transmitter device; Use to check sugars throughout the day blood-glucose sensor device; Use to check blood sugar throughout the day blood-glucose,agronomy manager,cont misc; Use to check blood sugars throughout the day Assessment & Plan (02/14/2025 2:16 PM CDT): Patient was switched to propranolol Orders: Comprehensive metabolic panel; Future CBC with auto differential; Future Lipid panel; Future Hemoglobin A1c; Future Vitamin D 25 hydroxy; Future Albumin Creatinine Ratio, Urine; Future Thyroid Function Gaston; Future Uric acid; Future Dyslipidemia 11/06/2017 Assessment & Plan (04/28/2025 12:20 PM CDT): Assessment & Plan (10/31/2021 8:55 PM WELLNESS PROGRAM COORDINATOR): Cont statin Benign essential hypertension 07/17/2016 Assessment & Plan (04/28/2025 12:20 PM CDT): Assessment & Plan (02/14/2025 2:16 PM CDT): He has been having control of his blood pressure with low-dose metoprolol monotherapy. I will switch him to losartan and propranolol given that he also complains of tremors Orders: Comprehensive metabolic panel; Future CBC with auto differential; Future Lipid panel; Future Hemoglobin A1c; Future Vitamin D 25 hydroxy; Future Albumin Creatinine Ratio, Urine; Future Thyroid Function Gaston; Future Uric acid; Future Diabetic neuropathy 07/17/2016 Assessment & Plan (04/28/2025 12:20 PM CDT): Assessment & Plan (03/17/2025 4:45 PM CDT): Assessment & Plan (10/31/2021 8:50 PM WELLNESS PROGRAM COORDINATOR): Cont home meds Idiopathic gout 07/17/2016 Assessment & Plan (04/28/2025 12:20 PM CDT): Assessment & Plan (02/14/2025 2:16 PM CDT): Testicular hypofunction 07/17/2016 Assessment & Plan (04/28/2025 12:20 PM CDT): Uncontrolled type 2 diabetes mellitus with hyper glycemia 07/14/2016 Assessment & Plan (04/28/2025 12:20 PM CDT): Orders: blood-glucose transmitter device; Use to check sugars throughout the day blood-glucose sensor device; Use to check blood sugar throughout the day blood-glucose,agronomy manager,cont misc; Use to check blood sugars throughout the day Hemoglobin A1c; Future Assessment & Plan (03/17/2025 4:45 PM CDT): We have been slowly making changes and significant progress has been made. They are checking the blood sugar every single morning. Values have gone down to the 160s to 180s now. I discussed with them previous scale changes by 2 units until we are in range. Ideally, we will get to the 100s. However I feel that slow changes should be indicated for now. The patient is a significant fall risk. They are currently on Ozempic 0.25 about to go to 0.5. He is on metformin 1000 mg twice daily. He is on 28 units of Lantus at night. Assessment & Plan (02/14/2025 2:16 PM CDT): We had a long discussion in regards to the patient's diabetes management. I do not have a baseline A1c at this time, however his A1c was very out of control, and based on his home blood glucose. He will need further management. His blood glucose was in the 200s but he has been fasting today. At this point, I will start both Ozempic as well as fast acting insulin. Assessment & Plan (10/31/2021 8:51 PM WELLNESS PROGRAM COORDINATOR): Cont lantus, SS coverage Resolved Problems Problem Noted Date Diagnosed Date Resolved Date Osteomyelitis of left foot 10/31/2021 0 04/28/2025 Assessment & Plan (10/31/2021 8:50 PM WELLNESS PROGRAM COORDINATOR): Vanc and unasyn started in ER, will switch unasyn to cefepime for pseudomonal coverage. Vascular surgery consulted in eR Sepsis 08/22/2021 04/28/2025 BLANCA (acute kidney injury) 08/22/2021 Hyponatremia 08/15/2021 04/28/2025 Paresthesia 07/17/2016 04/28/2025 Osteomyelitis of great toe of left foot 04/28/2025 Assessment & Plan (03/17/2025 4:45 PM CDT): The patient is status post left BKA He does have an chronic wound with his prosthesis. Does not look infected today. We will continue to treat his hyperglycemia and hope for slow healing. He has had polyneuropathy as well as presumed vasculopathy from diabetes and this wound will take some time to heal Encounter for management of wound VAC 04/28/2025 Encounters Date Type Department Care Team Description 04/28/2025 10:30 AM CDT Office Visit [address] [phone] Ekaterina Varma PA Uncontrolled type 2 diabetes mellitus with hyperglycemia (HCC) (Primary Dx); Benign essential tremor; Prostate cancer screening; Chronic diarrhea; Onychomycosis; Benign essential hypertension; Diabetic polyneuropathy associated with type 2 diabetes mellitus (HCC); Dyslipidemia; Idiopathic chronic gout of multiple sites without tophus; 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 (HCC); CHARITY on CPAP; Testicular hypofunction; Tobacco dependence due to cigarettes; BMI 27.0-27.9,adult 04/28/2025 Letter (Out) [address] [address] 03/17/2025 4:00 PM CDT Office Visit [address] [phone] Mina Duvall MD Need for vaccination (Primary Dx); Inadequately controlled diabetes mellitus (HCC); Osteomyelitis of great toe of left foot (HCC); Diabetic polyneuropathy associated with type 2 diabetes mellitus (HCC) from Last 3 Months Immunizations Immunization Administration Dates Next Due Hep A, Adult 01/31/1998,06/30/1996 Influenza, Quadrivalent, Spl it, Intramuscular 06/23/2014 Influenza, Quadrivalent, Spl it, Preservative Free, Intramuscular 07/24/2023,08/22/2021,08/01/2020,06/28,06/25/2016,06/25/2015 Influenza, Split 08/10/2006,07/17/2005, 5 Influenza, Trivalent, Preser vative Free, Intramuscular 05/24/2024,06/17/2013 Influenza, Unspecified 05/31/2022 Influenza, Whole 06/19/2003, 2,07/01/2001,09/03,06/27/1999,07/23/1998,06/07/1997 MMR 05/30/1985 Meningococcal Polysaccharide (Menomune) 05/10/2002 OPV 02/29/1988 PPD TEST 03/15/2002,09/22/2000,01/31/1998 Pfizer SARS-CoV-2 Monovalent Vaccination (12+ Yrs) PURPLE 12/04/2020,11/12/2020 Pneumococcal Conjugate Pcv20 09/02/2023 Td, adsorbed 06/30/1996,05/31/1986 Tdap 12/20/2019,10/27/2006 Typhoid H-P SQ/ID 07/19/2002,09/22/2000 Yellow Fever 05/12/2002 ZOSTER Recombinant 03/17/2025,02/22/2021 Surgical History Surgery Date Site/Laterality Comments EYE SURGERY cataract removal R eye INCISION AND DRAINAGE FOOT 08/15/2021 Left with debridement TOE AMPUTATION 08/15/2021 Left 1st and 2nd left toes VASCULAR SURGERY 10/09/2021 Left left foot split thickness skin graft BELOW KNEE LEG AMPUTATION 11/06/2021 Left CATARACT EXTRACTION Medical History Medical History Date Comments Hypertension Hyperlipidemia Idiopathic gout CHARITY on CPAP 08/14/2021 Toe amputee Left foot 1 & 2n d toe Type 2 diabetes mellitus IDDM Tooth missing Wears glasses Wound of foot LEFT FOOT, WOUND VAC IN PLACE Cataract Sepsis (HCC) 08/22/2021 Osteomyelitis of great toe o f left foot (HCC) Osteomyelitis of left foot (HCC) 10/31/2021 Family History Medical History Relation Name Comments Diabetes Father Wayne Sr. Heart disease Father Wayne Sr. Hyperlipidemia Father Wayne Sr. Hypertension Father Wayne Sr. Lung cancer Father Wayne Sr. Heart disease Mother Betina Relation Name Status Comments Father Wayne Sr. at 65 Mother Betina Alive Social History Tobacco Use Types Packs/Day Years Used Date Smoking Tobacco: Every Day Cigarettes 0.8 19.7 Started: 2006 Passive Smoke Exposure: Current Smokeless Tobacco: Never Alcohol Use Standard Drinks/Week Comments Yes 0 (1 standard drink = 0.6 oz pur e alcohol) PHQ-2 Answer Date Recorded PHQ-2 Total Score (If total score is 3 or more points, staff should administer the PHQ-9) 0 04/28/2025 AUDIT-C Answer Date Recorded Q1: How often do you have a drink containing alc ohol? Monthly or less 04/28/2025 Q2: How many drinks containi ng alcohol do you have on a typical day when you are drinking? 1 or 2 04/28/2025 Q3: How often do you have si x or more drinks on one occasion? 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 [employer] Not on file Not on file Not on file Obstetrics History Last Filed Vital Signs Vital Sign Reading Time Taken Comments Blood Pressure 100/60 04/28/2025 10:34 AM CDT Pulse 78 04/28/2025 10:34 AM CDT Temperature 36.1 C (97 F) 04/28/2025 10:34 AM CDT Respiratory Rate 16 04/28/2025 10:34 AM CDT Oxygen Saturation 98% 04/28/2025 10:34 AM CDT Inhaled Oxygen Concentration - - Weight 84.8 kg (187 lb) 04/28/2025 10:34 AM CDT Height 175.3 cm (5' 9) 04/28/2025 10:34 AM CDT Body Mass Index 27.62 04/28/2025 10:34 AM CDT Plan of Treatment Health Maintenance Due Date Last Done Comments Hepatitis B Screening 1981 Prostate Cancer Screening-PSA 03/26/2023, 07/16/2016, 05/28/2015 Regular Well Visit/Exam 18-64 09/02/2024, 02/24/2022, 02/22/2021, Additional history exists Influenza Vaccine (#1) 2025 , 07/24/2023, 05/31/2022, Additional history exists Hemoglobin A1C 08/16/2025 02/14/2025, 12/30, 10/31/2021, Additional history exists Albumin Creatinine Ratio, Urine 02/14/2026 02/14/2025, 03/26/2021, 07/16/2016 Lipid Panel 02/14/2026 02/14/2025, 03/01, 07/16/2016, Additional history exists eGFR 02/14/2026 02/14/2025, 10/29, 11/10/2021, Additional history exists Depression Screening 04/28/2026 04/28/2025, 03/17/2025, 02/14/2025, Additional history exists Foot Exam 04/28/2026 04/28/2025, 12/29, 01/15/2024, Additional history exists Dilated Eye Exam 05/10/2026 05/10/2025, , 09/26/2024, Additional history exists DTaP/Tdap/Td Vaccine (3 - Td or Tdap) 12/19/2029 12/20/2019, 10/27/2006, 06/30/1996, Additional history exists Colon Cancer Screening-Colonoscopy 01/16/2030 01/17/2020 Colon Cancer Screening-CT Colonography Discontinued 01/17/2020 Colon Cancer Screening-DNA Stool Discontinued 01/17/20 Colon Cancer Screening-FIT Discontinued 01/17/2020 Colon Cancer Screening-Sigmoidoscopy Discontinued 01/17/2020 Hepatitis C Screening Completed 03/26/2021 Pneumococcal vaccine <65 Completed 09/02/2023 Covid-19 Vaccine Completed 05/24/2024, , 11/03/2022, Additional history exists Zoster Vaccine Completed 03/17/2025, 02/22/2021 Procedures Procedure Name Priority Date/Time Associated Diagnosis Comments HM DIABETES EYE EXAM Routine 05/10/2025 EGFR Routine 02/14/2025 2:00 PM CDT Inadequately controlled diabetes mellitus (HCC) Benign essential hypertension Benign essential tremor Hypertension associated with diabetes (HCC) HEMOGLOBIN A1C Routine 02/14/2025 2:00 PM CDT Inadequately controlled diabetes mellitus (HCC) Benign essential hypertension Benign essential tremor Hypertension associated with diabetes (HCC) LIPID PANEL Routine 02/14/2025 2:00 PM CDT Inadequately controlled diabetes mellitus (HCC) Benign essential hypertension Benign essential tremor Hypertension associated with diabetes (HCC) ALBUMIN CREATININE RATIO, URINE Routine 02/14/2025 2:00 PM CDT Inadequately controlled diabetes mellitus (HCC) Benign essential hypertension Benign essential tremor Hypertension associated with diabetes (HCC) HEPATITIS C ANTIBODY Routine 03/26/2021 7:35 AM CDT PSA SCREEN Routine 03/26/2021 7:35 AM CDT COLONOSCOPY Routine 01/17/2020 DIABETES FOOT EXAM Routine 11/22/2018 from Last 3 Months or Most Recently Relevant to Health Maintenance Results * DIABETES EYE EXAM (05/10/2025) SCRIBED DIABETIC DILATED EYE EXAM Abnormal Historical Provider HEALTH MAINTENANCE Final Result * eGFR (02/14/2025 2:00 PM CDT) eGFR 76 >=60 mL/min/1. 73 m2 Comment: Interpretive Data Reference Interval Normal >/= [...] Current interpretive data was last reviewed 2021. Testing performed by: [facility], [address] [place] [address], [place]., [address] Blood 02/14/2025 2:00 PM CDT 02/14/2025 4:12 PM CDT Mina Duvall MD LAB BLOOD ORDERABLES Final Re sult Performing Organization Address [facility] Co de Phone Number [facility] [address] [facility] [place] [place] [address] * Albumin Creatinine Ratio, Urine (02/14/2025 2:00 PM CDT) Albumin Ur 17.5 mg/L Comment: Interpretive Data No reference range established. Current interpretive data was last revised 2019. Testing performed by: [address] [address] Creatinine Ur 63.7 mg/dL [facility] Comment: Interpretive Data No reference range established. Current interpretive data was last revised 2019. Testing performed by: [address] [address] Albumin Creatinine Ratio, Ur 27 1 - 29 mg/g [facility] Comment:Testing performed by : [address] [address] Urine 02/14/2025 2:00 PM CDT 02/14/2025 4:11 PM CDT Mina Duvall MD LAB URINE ORDERABLES Final Re sult Performing Organization Address [facility] Co de Phone Number [facility] [address] [place] [address] * (ABNORMAL) Hemoglobin A1c (02/14/2025 2:00 PM CDT) Pathologist [facility] Hgb A1C 11.1(H) 4.0 - 5.6 % Comment:Testing performed by : [address] [address] Estimated Average Glucose 272 mg/dL [facility] Comment: The ADA recommends reporting an estimated Average Glucose (eAG) with all Hemoglobin A1c results using the equation derived from a study of 507 normal and diabetic adults. Minority populations were underrepresented and children were not included. (Diabetes Care 31:5814-4797, 2008). The eAG is not equivalent to a fasting glucose. Testing performed by: [address] [address] Blood 02/14/2025 2:00 PM CDT 02/14/2025 4:06 PM CDT us Mina Duvall MD LAB BLOOD ORDERABLES Final Re sult [facility] [address] [facility] Department [place] [address] * (ABNORMAL) Lipid panel (02/14/2025 2:00 PM CDT) Cholesterol 158 30 - 199 mg/dL Comment: Interpretive Data Ages < or = 19 years Acceptable: <170 mg/dL Borderline high: 170-199 mg/dL High: >or= 200 mg/dL Ages > or = 20 years Desirable: <200 mg/dL Borderline high: 200-239 mg/dL High: >or= 240 mg/dL Literature References: 1. Expert Panel on Integrated Guidelines for Cardiovascular Health and Risk Reduction in Children and Adolescents. Pediatrics 2011;128:S213 2. NCEP Expert Panel. Circulation 2004;110:227 Current Interpretive Data was last revised on 2018. Testing performed by: [address] [address] Triglycerides 508(H) <=149 mg/dL [facility] Comment: Interpretive Data Ages < or = 9 years Acceptable: <75 mg/dL Borderline high: 75-99 mg/dL High: >or= 100 mg/dL Ages 10 to 20 years Acceptable: <90 mg/dL Borderline high: 90-129 mg/dL High: >or= 130 mg/dL Ages > or = 20 years Desirable: <150 mg/dL Borderline high: 150-199 mg/dL High: 200-499 mg/dL Very high: >or= 499 mg/dL Literature References: 1. Expert Panel on Integrated Guidelines for Cardiovascular Health and Risk Reduction in Children and Adolescents. Pediatrics 2011;128:S213 2. NCEP Expert Panel. Circulation 2004;110:227 Current Interpretive Data was last revised on 2018. Testing performed by: [address] [address] HDL 37(L) >=40 mg/dL [facility] Comment: Interpretive Data Ages < or = 19 years Acceptable: >45 mg/dL Borderline low: 40-45 mg/dL Low: <40 mg/dL Ages > or = 20 years Desirable: >or= 60 mg/dL Low: <40 mg/dL Literature References: 1. Expert Panel on Integrated Guidelines for Cardiovascular Health and Risk Reduction in Children and Adolescents. Pediatrics 2011;128:S213 2. NCEP Expert Panel. Circulation 2004;110:227 Current Interpretive Data was last revised on 2018. Testing performed by: [address] [address] LDL, calculated See Comment <=129 mg/dL [facility] Comment: Unable to calculate due to elevated Triglycerides. Interpretive Data Ages < or = 19 years Acceptable: <110 mg/dL Borderline high: 110-129 mg/dL High: >or= 130 mg/dL Ages > or = 20 years Optimal: <100 mg/dL Near optimal: 100-129 mg/dL Borderline high: 130-159 mg/dL High: >160 mg/dL Calculated using the Catrachito LDL-C estimating equation. This equation was implemented on 2024. Prior to this date LDL-C was estimated using the Friedewald equation. Literature References: 1. Expert Panel on Integrated Guidelines for Cardiovascular Health and Risk Reduction in Children and Adolescents. Pediatrics 2011;128:S213 2. NCEP Expert Panel. Circulation 2004;110:227 3. Catrachito Brantley et al. AUDREY Cardiol. 2020 December 29;5(5):540-548. doi: 10.1001/[email or web address] Current Interpretive Data was last revised on 2024. Testing performed by: [address] [address] Non-HDL Cholesterol 121 mg/dL [facility] Comment: Interpretive Data Ages < or = 19 years Acceptable: <120 mg/dL Borderline high: 120-144 mg/dL High: >145 mg/dL Ages > or = 20 years When triglycerides are >200 mg/dL, Non-HDL cholesterol is a secondary target of therapy with treatment goals that are 30 mg/dL greater than the LDL cholesterol target. Literature References: 1. Expert Panel on Integrated Guidelines for Cardiovascular Health and Risk Reduction in Children and Adolescents. Pediatrics 2011;128:S213 2. NCEP Expert Panel. Circulation 2004;110:227 Current Interpretive Data was last revised on 2018. Testing performed by: [facility], [address] [place] [address]., [address] Chol/HDL ratio 4 [facility] Comment:Testing performed by : [facility], [address] [place] [address]., [address] Blood 02/14/2025 2:00 PM CDT 02/14/2025 4:12 PM CDT Mina Duvall MD LAB BLOOD ORDERABLES Final Re sult Performing Organization Address City/[facility]/ZIP Co de Phone Number [facility] [address] [facility] Department [place] [address] * PSA screen (03/26/2021 7:35 AM CDT) Pathologist [facility] PSA 0.5 < OR = 4.0 ng/mL [facility] Comment: The total PSA value from this assay system is standardized against the WHO standard. The test result will be approximately 20% lower when compared to the equimolar-standardized total PSA ([place]). Comparison of serial PSA results should be [...] BLOOD ORDERABLES Final Result Performing Organization Address City/[facility]/ZIP Co de Phone Number [facility] [address] [place] [address] * Hepatitis C antibody (03/26/2021 7:35 AM CDT) Pathologist [facility] Hep C Ab NON-REACTI VE NON-REACT TAYLOR [facility] SIGNAL TO CUT-OFF 0.01 <1.00 [facility] Comment: HCV antibody was non-reactive. There is no laboratory evidence of HCV infection. In most cases, no further action is required. However, if recent HCV exposure is suspected, a test for HCV RNA (test code 35297) is suggested. For additional information please refer to [email or web address]/faq/[email or web address] (This link is being provided for informational/ educational purposes only.) 03/26/2021 7:35 AM CDT 03/26/2021 7:38 AM CDT Narrative [facility] - 03/27/2021 1:46 PM CDT FASTING:YES FASTING: YES Elan Calderon MD LAB MICROBIOLOGY - G ENERAL ORDERABLES Final Result [facility] [address] [place] [address] * Colonoscopy (01/17/2020) Anatomical Region Laterality Modality Other [facility] Provider ENDOSCOPY PROCEDURES Nadiya l Result * DIABETES FOOT EXAM (11/22/2018) Diabetic Foot Exam Normal Historical Provider HEALTH MAINTENANCE Final Result from Last 3 Months or Most Recently Relevant to Health Maintenance Insurance Formerly [facility] [place] [address] [facility] CLAIMS Advance Directives For more information, please contact: [phone] Documents on File Type Date Recorded Patient Medical Receptionist Expl anation ADVANCE DIRECTIVE 11/05/2021 3:09 PM Power of Oil Lease Operator-Medical * Full Code (Latest Code Status on File) Date Activated Date Inactivated Comments 10/31/2021 10:48 PM 11/11/2021 10:17 PM * Full Code Date Activated Date Inactivated Comments 08/15/2021 2:04 AM 08/22/2021 8:59 PM Healthcare Agents on File Name Relationship Healthcare Agent Relationshi p Communication Shannon Walsh Spouse Health Care Agent Care Teams Public Address Technician Relationship Specialty Start Date End Date Ekaterina Varma PA [address] [facility] [place] [address] PCP - General Family Medicine 04/28/25 Cecil Jones MD [address] [facility] [address] [place] [address] [address] Consulting Physician Vascular Surgery 08/21/21
--- OUTSIDE RECORDS SUMMARY | 2025-05-29 13:20 | XMS_ITS | Clinical Summary ---
Author Organization [facility] Address [address] [place] [address] Care Team Providers Care Parer Name Role Phone Elan Calderon MD Primary Care Provider + [phone] Social History Tobacco Use Types Packs/Day Years Used Date Smoking Tobacco: Never Assessed Sex and Gender Information Value Date Recorded Sex Assigned at Not on file Legal Sex Male 7:52 PM CDT Gender Identity Not on file Sexual Orientation Not on file Plan of Treatment Health Maintenance Due Date Last Done Comments Colorectal Cancer Screening Colonoscopy (10 Years) 1963 Annual Physical 1966 Hepatitis C 1981 Zoster Vaccines (2 of 2) 04/19/2021 02/22/2021 COVID-19 Vaccine (3 - season) 2025 12/04/2020, 11/12/2020 DTaP, Tdap and Td Vaccines (3 - Td or Tdap) 12/19/2029 12/20/2019, 10/27/2006, 06/30/1996, Additional history exists RSV Immunization or 60+ Years (1 - 1-dose 75+ series) 2038 Meningococcal Vaccine Aged Out 05/10/2002 No little renata eligible based on patient's age to complete this topic Pneumococcal Vaccine: 50+ Years Completed 09/02/2023 Meningococcal B Vaccine Aged Out No l onger eligible based on patient's age to complete this topic RSV Immunizations Under 20 Months Aged Out No longer eligible based on patient's age to complete this topic Insurance AETNA Care Teams Parer Relationship Specialty Start Date End Date Elan Calderon MD [address] [place], [place] [id number] PCP - General FAMILY PRACTICE 01/18/24
--- NOTE | 2025-05-29 13:53 | ED_ITS ---
HPI - Skin/Abscess/Foreign Bdy General Chief complaint: Skin/Abscess/Foreign Body <Stefanie Hargrove PA-C - Last Filed: 05/29/25 18:27> Stated complaint: concern for infection to left BKA site <Stefanie Hargrove PA-C - Last Filed: 05/29/25 18:27> Time Seen by Provider: 05/29/25 13:22 <Stefanie Hargrove PA-C - Last Filed: 05/29/25 18:27> Source: patient <JAGRUTI Martinez Last Filed: 05/29/25 18:27> Mode of arrival: ambulatory <JAGRUTI Martinez Last Filed: 05/29/25 18:27> Limitations: no limitations <Stefanie Hargrove PA-C - Last Filed: 05/29/25 18:27> History of Present Illness HPI narrative: This is a 60 year old male that presents to the ER for rash to the left leg. Reports BKA about three years ago. Reports burning pain in the stump. Noted a rash in the leg this morning. Denies fevers. <Stefanie Hargrove PA-C - Last Filed: 05/29/25 18:27> Related Data Home medications: Home Medications ?Medication ?Instructions ?Recorded ?Confirmed ?Last Taken ?Type allopurinol 300 mg tablet 300 mg PO DAILY 12/09/2212/09/22 History aspirin 81 mg tablet,delayed 81 mg PO DAILY 12/09/22 0 05/29/25 1 Day Ago History release ~12/08/22 empagliflozin 10 mg tablet 10 mg PO DAILY 12/09/2212/09/22 History (Jardiance) fenofibrate 160 mg tablet 160 mg PO DAILY 12/09/2212/09/22 History metformin 1,000 mg tablet 1,000 mg PO BID 12/09/2212/09/22 History omega-3 acid ethyl esters 1 gram 1 g PO BID 12/09/22 0 05/29/25 12/09/22 History capsule simvastatin 40 mg tablet 40 mg PO DAILY 12/09/22 09/2 9/25 04/11/23 History ergocalciferol (vitamin D2) 1,000 1,000 mcg PO DAILY 0 05/29/25 05/29/25 Unknown History unit capsule gabapentin 300 mg capsule 300 mg PO Q8H 05/29/2505/29 Unknown History insulin glargine-yfgn 100 unit/mL 38 unit subcut QPM 0 05/29/25 05/29/25 Unknown History (3 mL) subcutaneous pen losartan 25 mg tablet 25 mg PO DAILY 05/29/2505/02 Unknown History semaglutide 1 mg/dose (4 mg/3 mL) 1 mg subcut WEEKLY 0 05/29/25 05/29/25 Unknown History subcutaneous pen injector (Ozempic) <Stefanie Hargrove PA-C - Last Filed: 05/29/25 18:27> Allergies/Adverse reactions: Allergies Allergy/AdvReac Type Severity Reaction Status Date / Time No Known Allergies Allergy Verified 05/29/25 13:21 <Stefanie Hargrove PA-C - Last Filed: 05/29/25 18:27> Review of Systems 2 Review of Systems: All systems reviewed & are unremarkable except as noted in HPI and below <Stefanie Hargrove PA-C - Last Filed: 05/29/25 18:27> [facility] Past Medical History Medical History: Medical History Gout Amputated toe Below knee amputation left bka Hyperlipidemia associated with type 2 diabetes mellitus Hypertension Diabetes <Stefanie Hargrove PA-C - Last Filed: 05/29/25 18:27> Surgical History Surgical History: Surgical History H/O eye surgery Hx of cataract extraction <JAGRUTI Martinez Last Filed: 05/29/25 18:27> Family History Family History: Family History Mother Diabetes mellitus Hyperlipidemia associated with type 2 diabetes mellitus Father Diabetes mellitus Hyperlipidemia associated with type 2 diabetes mellitus Hypertension Lung cancer Sibling Cerebrovascular accident <Stefanie Hargrove PA-C - Last Filed: 05/29/25 18:27> Social History Social History: Social History Social History: 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 He lives with his . He has 4 children . 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 [employer] Code status full code Smoking packs per day: 0.75 Smoking cigarettes per day: 15.0 Years smoked: 15 Smoking pack-years: 11.25 Smoking status: Current every day smoker Tobacco type: cigarettes Alcohol intake: current Drinks per week: 1 Substance use: never Lack of Transportation: No Lack of Food: Never True Current Housing: I Have Housing Concerned About Future Housing: No Difficulty Paying Gas/Electric Bills: No Difficulty Paying for Meds: No Currently Unemployed: No Education: Associate Degree Difficulty w/ Childcare or Family Care: No Spiritual care concerns: No <Stefanie Hargrove PA-C - Last Filed: 05/29/25 18:27> Exam 2 Narrative: GENERAL: Well-appearing, well-nourished, and in no acute distress. HEAD: Normocephalic, atraumatic. EYES: EOMI. CHEST: No respiratory distress. HEART: Regular rate EXTREMITIES: Normal range of motion. No edema. Left BKA stump with patchy erythema with streaking into the thigh SKIN: Warm, dry, no rash. NEURO: No focal deficits. Alert and oriented x3. PSYCH: Normal mood and affect <Stefanie Hargrove PA-C - Last Filed: 05/29/25 18:27> Course Course Emergency Course: patient updated on workup and recommendation for admission <Stefanie Hargrove PA-C - Last Filed: 05/29/25 18:27> GAS DISTRIBUTION AND EMERGENCY CLERK/PA Physician Supervision This visit was performed by both a physician and an APC. I performed all aspects of the MDM as documented. <Nabil Nieves MD - Last Filed: 05/29/25 21:00> Consultations Consultation #1: Spoke with hospitalist about patient and workup who accepts admission < Stefanie Hargrove PA-C - Last Filed: 05/29/25 18:27> Date: 05/29/25 <Stefanie Hargrove PA-C - Last Filed: 05/29/25 18:27> Vital Signs Vital signs: Vital Signs Temperature 97.9 F 05/29/25 13:17 Pulse Rate 82 05/29/25 13:17 Respiratory Rate 18 05/29/25 13:17 Blood Pressure 113/76 05/29/25 13:17 Pulse Oximetry 96 05/29/25 13:17 Oxygen Delivery Room Air 05/29/25 13:17 Temperature 99.1 F 05/29/25 18:44 Pulse Rate 88 05/29/25 18:44 Respiratory Rate 16 05/29/25 18:44 Blood Pressure 125/81 05/29/25 18:44 Pulse Oximetry 97 05/29/25 18:44 Oxygen Delivery Room Air 05/29/25 13:17 <Stefanie Hargrove PA-C - Last Filed: 05/29/25 18:27> Vital Signs Temperature 97.9 F 05/29/25 13:17 Pulse Rate 82 05/29/25 13:17 Respiratory Rate 18 05/29/25 13:17 Blood Pressure 113/76 05/29/25 13:17 Pulse Oximetry 96 05/29/25 13:17 Oxygen Delivery Room Air 05/29/25 13:17 Temperature 99.1 F 05/29/25 18:44 Pulse Rate 88 05/29/25 18:44 Respiratory Rate 16 05/29/25 18:44 Blood Pressure 125/81 05/29/25 18:44 Pulse Oximetry 97 05/29/25 18:44 Oxygen Delivery Room Air 05/29/25 13:17 <Nabil Nieves MD - Last Filed: 05/29/25 21:00> MDM - Skin/Abscess/Foreign Bdy MDM Narrative Medical decision making narrative: Patient presents to the emergency department for redness, pain to the left lower extremity. He is afebrile and nontoxic appearing. Cbc without leukocytosis. CRP is elevated. X-ray without evidence of osteomyelitis. Due to significant exam with lymphangitic streaking patient will be admitted further treatment with IV antibiotics. Spoke with hospitalist and about and workup who accepts admission <Stefanie Hargrove PA-C - Last Filed: 05/29/25 18:27> Differential Diagnosis Differential diagnosis: Likely abscess of skin or subcutaneous tissue, herpes zoster and cellulitis <Stefanie Hargrove PA-C - Last Filed: 05/29/25 18:27> Lab Data Attestation: I reviewed the patient's lab results. <Stefanie Hargrove PA-C - Last Filed: 05/29/25 18:27> Result diagrams: 05/29/25 14:10 05/29/25 14:10 <Stefanie Hargrove PA-C - Last Filed: 05/29/25 18:27> Labs: Lab Results 05/29/25 Range/Units 14:10 WBC 7.6 (4.5-10.0) K/mm3 RBC 5.12 (4.6-6.20) M/mm3 Hgb 16.2 (14.0-18.0) g/dL Hct 47.0 (42.0-52.0) % MCV 91.8 (80-100) fl MCH 31.6 (26-34) pg MCHC 34.5 (32-36) g/dl RDW 13.2 (11.5-14.5) % Plt Count 132 L (150-375) k/mm3 MPV 9.8 (7.4-10.4) fl Immature Gran % (Auto) 0.3 (0-0.5) % Neut % (Auto) 63.6 (45.5-73.1) % Lymph % (Auto) 24.6 (18.3-44.2) % [place] % (Auto) 9.5 H (2.6-8.5) % Eos % (Auto) 1.3 (0-4.4) % Baso % (Auto) 0.7 (0.2-1.2) % Lymph # (Auto) 1.86 (0.9-3.2) K/mm3 [place] # (Auto) 0.7 H (0.1-0.6) K/mm3 Eos # (Auto) 0.1 (0-0.3) K/mm3 Baso # (Auto) 0.1 (0.0-0.1) K/mm3 Abs Immat Gran (auto) 0.02 (0.00-0.031) K/mm3 Absolute Neuts (auto) 4.8 (1.3-6.7) K/mm3 Absolute Nucleated RBC 0.000 (0.0-0.012) K/mm3 Nucleated RBC % 0.0 (0.0-0.2) % % Immature Plt Fraction 3.2 (0.9-11.2) % ESR 6 (0-20) mm/hr PT 13.6 (11.1-14.7) Seconds INR 1.0 APTT 22.9 (22.3-36.8) Seconds Sodium 137 (137-145) mmol/L Potassium 4.2 (3.4-5.0) mmol/L Chloride 103 (98-107) mmol/L Carbon Dioxide 28 (22-30) mmol/L Anion Gap 6 (4-12) mmol/L BUN 19 (9-20) mg/dL Creatinine 1.34 H (0.7-1.3) mg/dL Estim Creat Clear Calc 50 ml/min Estimated GFR 54 L (59 - ) Glucose 128 H (65-110) mg/dL Uric Acid 3.1 L (3.5-8.5) mg/dL Calcium 9.0 (8.4-10.2) mg/dL C-Reactive Protein 1.9 H (<1.0) mg/dL <Stefanie Hargrove PA-C - Last Filed: 05/29/25 18:27> Lab Results 05/29/25 Range/Units 14:10 WBC 7.6 (4.5-10.0) K/mm3 RBC 5.12 (4.6-6.20) M/mm3 Hgb 16.2 (14.0-18.0) g/dL Hct 47.0 (42.0-52.0) % MCV 91.8 (80-100) fl MCH 31.6 (26-34) pg MCHC 34.5 (32-36) g/dl RDW 13.2 (11.5-14.5) % Plt Count 132 L (150-375) k/mm3 MPV 9.8 (7.4-10.4) fl Immature Gran % (Auto) 0.3 (0-0.5) % Neut % (Auto) 63.6 (45.5-73.1) % Lymph % (Auto) 24.6 (18.3-44.2) % [place] % (Auto) 9.5 H (2.6-8.5) % Eos % (Auto) 1.3 (0-4.4) % Baso % (Auto) 0.7 (0.2-1.2) % Lymph # (Auto) 1.86 (0.9-3.2) K/mm3 [place] # (Auto) 0.7 H (0.1-0.6) K/mm3 Eos # (Auto) 0.1 (0-0.3) K/mm3 Baso # (Auto) 0.1 (0.0-0.1) K/mm3 Abs Immat Gran (auto) 0.02 (0.00-0.031) K/mm3 Absolute Neuts (auto) 4.8 (1.3-6.7) K/mm3 Absolute Nucleated RBC 0.000 (0.0-0.012) K/mm3 Nucleated RBC % 0.0 (0.0-0.2) % % Immature Plt Fraction 3.2 (0.9-11.2) % ESR 6 (0-20) mm/hr PT 13.6 (11.1-14.7) Seconds INR 1.0 APTT 22.9 (22.3-36.8) Seconds Sodium 137 (137-145) mmol/L Potassium 4.2 (3.4-5.0) mmol/L Chloride 103 (98-107) mmol/L Carbon Dioxide 28 (22-30) mmol/L Anion Gap 6 (4-12) mmol/L BUN 19 (9-20) mg/dL Creatinine 1.34 H (0.7-1.3) mg/dL Estim Creat Clear Calc 50 ml/min Estimated GFR 54 L (59 - ) Glucose 128 H (65-110) mg/dL Uric Acid 3.1 L (3.5-8.5) mg/dL Calcium 9.0 (8.4-10.2) mg/dL C-Reactive Protein 1.9 H (<1.0) mg/dL <Nabil Nieves MD - Last Filed: 05/29/25 21:00> Imaging Data Radiologist's impression: ITS Impressions Knee X-Ray 05/29/25 14:06 IMPRESSION: 1. Status post left ufzgy-xkg-ykud amputation. No left knee joint effusion, acute osseous abnormality or regions of cortical erosion/osteolysis to suggest osteomyelitis. <Stefanie Hargrove PA-C - Last Filed: 05/29/25 18:27> Critical Care Time Critical Care Time Critical Care Time: No <Stefanie Hargrove PA-C - Last Filed: 05/29/25 18:27> Discharge Plan Discharge Clinical Impression: Cellulitis Qualifiers: Site of cellulitis: extremity Site of cellulitis of extremity: lower extremity Laterality: left Qualified Code(s): L03.116 - Cellulitis of left lower limb <Stefanie Hargrove PA-C - Last Filed: 05/29/25 18:27> Patient Disposition: Still a Patient <JAGRUTI Martinez Last Filed: 05/29/25 18:27> Condition: Stable <Stefanie Hargrove PA-C - Last Filed: 05/29/25 18:27>
--- OUTSIDE RECORDS SUMMARY | 2025-05-29 13:59 | XMS_ITS | Clinical Summary ---
Author Organization [address] Address [address] [address] Care Team Providers Care Commercial Hvac Service Technician Name Role Phone Cecil Jones MD Unavailable [phone] Ekaterina Varma Primary Care Provider [phone] Allergies No known active allergies Medications alcohol [...] OneTouch Verio Meter misc 021 Active omega 5-jws-moi-fish oil 1,000 mg (120 mg-180 mg) capsule [...] 08/22/2021 Assessment & Plan (09/06/2021 1:37 PM MASTER RIGGER): Impression: Patient is status post incision drainage [...] CDT): Assessment & Plan (10/31/2021 8:50 PM MASTER RIGGER): Pt may use own cpap Tobacco dependence due to cigarettes 08/14/2021 Assessment & Plan (04/28/2025 12:20 PM CDT): Chronic cervical radiculopathy 02/22/2021 Benign essential tremor 11/22/2018 Assessment & Plan (04/28/2025 12:20 PM CDT): Orders: blood-glucose transmitter device; Use to check sugars throughout the day blood-glucose sensor device; Use to check blood sugar throughout the day blood-glucose,metal sprayer protective coating,cont misc; Use to check blood sugars throughout the day Assessment & Plan (02/14/2025 2:16 PM CDT): Patient was switched to propranolol Orders: Comprehensive metabolic panel; Future CBC with auto differential; Future Lipid panel; Future Hemoglobin A1c; Future Vitamin D 25 hydroxy; Future Albumin Creatinine Ratio, Urine; Future Thyroid Function [place]; Future Uric acid; Future Dyslipidemia 11/06/2017 Assessment & Plan (04/28/2025 12:20 PM CDT): Assessment & Plan (10/31/2021 8:55 PM MASTER RIGGER): Cont statin Benign essential hypertension 07/17/2016 Assessment [...] Albumin Creatinine Ratio, Urine; Future Thyroid Function [place]; Future Uric acid; Future Diabetic neuropathy 07/17/2016 Assessment & Plan (04/28/2025 12:20 PM CDT): Assessment & Plan (03/17/2025 4:45 PM CDT): Assessment & Plan (10/31/2021 8:50 PM MASTER RIGGER): Cont home meds Idiopathic gout 07/17/2016 Assessment [...] to check blood sugar throughout the day blood-glucose,metal sprayer protective coating,cont misc; Use to check blood sugars throughout [...] insulin. Assessment & Plan (10/31/2021 8:51 PM MASTER RIGGER): Cont lantus, SS coverage Resolved Problems Problem Noted Date Diagnosed Date Resolved Date Osteomyelitis of left foot 10/31/2021 0 04/28/2025 Assessment & Plan (10/31/2021 8:50 PM MASTER RIGGER): Vanc and unasyn started in ER, will [...] Description 04/28/2025 10:30 AM CDT Office Visit [address] [address] Ekaterina Varma PA Uncontrolled type 2 diabetes [...] to cigarettes; BMI 27.0-27.9,adult 04/28/2025 Letter (Out) [address] [phone] 03/17/2025 4:00 PM CDT Office Visit [address] [address] Mina Duvall MD Need for vaccination (Primary [...] on file Legal Sex Male 7:52 PM MASTER RIGGER Gender Identity Male 09/28/2021 9:33 AM MASTER RIGGER Sexual Orientation Straight 09/28/2021 9: 33 AM MASTER RIGGER 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 Testing performed by: [facility], [address] [place] [address], [place]., [address] Blood 02/14/2025 2:00 PM CDT 02/14/2025 4:12 PM CDT Mina Duvall MD LAB BLOOD ORDERABLES Final Re sult Performing Organization Address [facility] Co de Phone Number [facility] [address] [facility] [place] [address] * Albumin Creatinine Ratio, Urine (02/14/2025 2:00 PM CDT) Albumin Ur 17.5 mg/L Comment: Interpretive Data No reference range established. Current interpretive data was last revised 2019. Testing performed by: [address] [address] Creatinine Ur 63.7 mg/dL [facility] Comment: Interpretive Data No reference range established. Current interpretive data was last revised 2019. Testing performed by: [address] [address] Albumin Creatinine Ratio, Ur 27 1 - 29 mg/g [facility] Comment:Testing performed by : [address] [address] Urine 02/14/2025 2:00 PM CDT 02/14/2025 4:11 PM CDT Mina Duvall MD LAB URINE ORDERABLES Final Re sult Performing Organization Address [facility] Co de Phone Number [facility] [address] [place] [address] * (ABNORMAL) Hemoglobin A1c (02/14/2025 2:00 PM CDT) Pathologist [facility] Hgb A1C 11.1(H) 4.0 - 5.6 % Comment:Testing performed by : [address] [address] Estimated Average Glucose 272 mg/dL [facility] Comment: The ADA recommends reporting an estimated Average Glucose (eAG) with all Hemoglobin A1c results using the equation derived from a study of 507 normal and diabetic adults. Minority populations were underrepresented and children were not included. (Diabetes Care 31:4965-2098, 2008). The eAG is not equivalent to a fasting glucose. Testing performed by: [address] [address] Blood 02/14/2025 2:00 PM CDT 02/14/2025 4:06 PM CDT us Mina Duvall MD LAB BLOOD ORDERABLES Final Re sult [facility] [place] [address] [facility] Department [place] [address] * (ABNORMAL) Lipid panel (02/14/2025 2:00 PM [...] last revised on 2018. Testing performed by: [address] [address] Triglycerides 508(H) <=149 mg/dL [facility] Comment: Interpretive [...] last revised on 2018. Testing performed by: [address] [address] HDL 37(L) >=40 mg/dL [facility] Comment: Interpretive [...] last revised on 2018. Testing performed by: [address] [address] LDL, calculated See Comment <=129 mg/dL [facility] [...] last revised on 2024. Testing performed by: [address] [address] Non-HDL Cholesterol 121 mg/dL [facility] Comment: Interpretive [...] last revised on 2018. Testing performed by: [facility], [address] [place] [address]., [address] Chol/HDL ratio 4 [facility] Comment:Testing performed by : [facility], [address] [place] [address]., [address] Blood 02/14/2025 2:00 PM CDT 02/14/2025 4:12 PM CDT Mina Duvall MD LAB BLOOD ORDERABLES Final Re sult Performing Organization Address City/[facility]/ZIP Co de Phone Number [facility] [address] [facility] Department [place] [address] * PSA screen (03/26/2021 7:35 AM CDT) Pathologist [facility] PSA 0.5 < OR = 4.0 ng/mL [facility] Comment: The total PSA value from this assay system is standardized against the WHO standard. The test result will be approximately 20% lower when compared to the equimolar-standardized total PSA ([place]). Comparison of serial PSA results should be [...] BLOOD ORDERABLES Final Result Performing Organization Address City/[facility]/ZIP Co de Phone Number [facility] [address] [place] [address] * Hepatitis C antibody (03/26/2021 7:35 AM CDT) Pathologist [facility] Hep C Ab NON-REACTI VE NON-REACT TAYLOR [facility] SIGNAL TO CUT-OFF 0.01 <1.00 [facility] Comment: HCV antibody was non-reactive. There is no laboratory evidence of HCV infection. In most cases, no further action is required. However, if recent HCV exposure is suspected, a test for HCV RNA (test code 68600) is suggested. For additional information please refer to [email or web address].tv.[employer]/faq/AZA84g7 (This link is being provided for informational/ educational purposes only.) 03/26/2021 7:35 AM CDT 03/26/2021 7:38 AM CDT Narrative [facility] - 03/27/2021 1:46 PM CDT FASTING:YES FASTING: YES Elan Calderon MD LAB MICROBIOLOGY - G ENERAL ORDERABLES Final Result [facility] [address] [place] [address] * Colonoscopy (01/17/2020) Anatomical Region Laterality Modality Other [facility] Provider ENDOSCOPY PROCEDURES Nadiya l Result * DIABETES FOOT EXAM (11/22/2018) Diabetic Foot Exam Normal Historical Provider HEALTH MAINTENANCE Final Result from Last 3 Months or Most Recently Relevant to Health Maintenance Insurance [facility] [place] [address] [facility] [place] [facility] CLAIM[facility] Advance Directives For more information, please contact: [phone] Documents on File Type Date Recorded Patient Care Services Manager Expl anation ADVANCE DIRECTIVE 11/05/2021 3:09 PM Power of Circular Saw Operator-Medical * Full Code (Latest Code Status on File) Date Activated Date Inactivated Comments 10/31/2021 10:48 PM 11/11/2021 10:17 PM * Full Code Date Activated Date Inactivated Comments 08/15/2021 2:04 AM 08/22/2021 8:59 PM Healthcare Agents on File Name Relationship Healthcare Agent Relationshi p Communication Shannon Walsh Spouse Health Care Agent Care Teams Commercial Hvac Service Technician Relationship Specialty Start Date End Date Ekaterian Varma PA [address] [facility] [address] PCP - General Family Medicine 04/28/25 Cecil Jones MD [address] [place] [address] [address] Consulting Physician Vascular Surgery 08/21/21
--- OUTSIDE RECORDS SUMMARY | 2025-05-29 13:59 | XMS_ITS | Clinical Summary ---
Author Organization [facility] Address [address] [place] [address] Care Team Providers Care Dynamite Packing Machine Operator Name Role Phone Elan Calderon MD Primary Care Provider + [phone] Social History Tobacco Use Types Packs/Day Years [...] complete this topic Insurance [employer] Care Teams Dynamite Packing Machine Operator Relationship Specialty Start Date End Date Elan Calderon MD [address] [place], [place] [id number] PCP - General FAMILY PRACTICE 01/18/24
[2025-05-29 14:17] LABS: Hematocrit 47.0 % (42.0-52.0); Hemoglobin 16.2 g/dL (14.0-18.0); Immature Granulocyte Percent A 0.3 % (0-0.5); Immature Platelet Fraction Pct 3.2 % (0.9-11.2); Lymphocytes Absolute Auto 1.86 K/mm3 (0.9-3.2); Mean Corpuscular HGB Conc 34.5 g/dl (32-36); Mean Corpuscular Hemoglobin 31.6 pg (26-34); Mean Corpuscular Volume 91.8 fl (80-100); Nucleated Red Blood Cells Absolute Auto 0.000 K/mm3 (0.0-0.012); Nucleated Red Blood Cells Perc 0.0 % (0.0-0.2); Platelet Count Result 132 k/mm3 (150-375); Red Blood Count 5.12 M/mm3 (4.6-6.20); White Blood Count 7.6 K/mm3 (4.5-10.0)
[2025-05-29 14:28] LABS: INR 1.0; Prothrombin Time 13.6 Seconds (11.1-14.7)
[2025-05-29 14:29] LABS: Partial Thromboplastin Time 22.9 Seconds (22.3-36.8)
[2025-05-29 14:37] LABS: Anion Gap 6 mmol/L (4-12); Blood Urea Nitrogen 19 mg/dL (9-20); CRP 1.9 mg/dL (<1.0); Calcium 9.0 mg/dL (8.4-10.2); Carbon Dioxide 28 mmol/L (22-30); Chloride 103 mmol/L (98-107); Estimated CRCL calculation 50 ml/min; Estimated Glomerular Filt Rate 54; Glucose 128 mg/dL (65-110); Potassium 4.2 mmol/L (3.4-5.0); Sodium 137 mmol/L (137-145); Uric Acid 3.1 mg/dL (3.5-8.5)
[2025-05-29] MEDS: VANCOMYCIN 1,250 MG/NS 250 ML 1,250 MG/250 ML BAG 166.67 MG IVPB (17:02)
--- NOTE | 2025-05-29 17:09 | PM.IMHP ---
H&P: HPI History of Present Illness Date/Time: 05/29/25 17:09 Chief Complaint: Left knee redness Narrative: 60-year-old male with past medical history of diabetes mellitus, CKD stage 2, history of left below-knee amputation presenting with redness around the stump site. Denies any fevers, chills, trauma. It started around 10:30 a.m. this morning. Does have intermittent electric sensation like pain. Denies any recent sick contacts. X-ray of left knee was unremarkable done in the ER. Review of Systems Review of Systems: All systems reviewed & are unremarkable except as noted in HPI and below PMFSH Past Medical History Medical History Gout Amputated toe Below knee amputation left bka Hyperlipidemia associated with type 2 diabetes mellitus Hypertension Diabetes Surgical History Surgical History H/O eye surgery Hx of cataract extraction Family History Family History Mother Diabetes mellitus Hyperlipidemia associated with type 2 diabetes mellitus Father Diabetes mellitus Hyperlipidemia associated with type 2 diabetes mellitus Hypertension Lung cancer Sibling Cerebrovascular accident Social History Social History Social History: 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 He lives with his . He has 4 children . His is the durable power securities attorney for healthcare Code status full code Smoking packs per day: 0.75 Smoking cigarettes per day: 15.0 Years smoked: 15 Smoking pack-years: 11.25 Smoking status: Current every day smoker Tobacco type: cigarettes Alcohol intake: current Lack of Transportation: No Lack of Food: Never True Current Housing: I Have Housing Concerned About Future Housing: No Difficulty Paying Gas/Electric Bills: No Difficulty Paying for Meds: No Currently Unemployed: No Education: Associate Degree Difficulty w/ Childcare or Family Care: No Spiritual care concerns: No Meds Home Medications and Allergies Home Medications ?Medication ?Instructions ?Recorded ?Confirmed ?Type allopurinol 300 mg tablet 300 mg PO DAILY 12/09/22 12/09/22 History aspirin 81 mg tablet,delayed 81 mg PO DAILY 12/09/22 12/09/22 History release empagliflozin 10 mg tablet 10 mg PO DAILY 12/09/22 12/09/22 History (Jardiance) fenofibrate 160 mg tablet 160 mg PO DAILY 12/09/22 12/09/22 History metformin 1,000 mg tablet 1,000 mg PO BID 12/09/22 12/09/22 History metoprolol succinate 25 mg 25 mg PO DAILY 12/09/22 12/09/22 History tablet,extended release 24 hr omega-3 acid ethyl esters 1 gram 1 g PO DAILY 12/09/22 12/09/22 History capsule simvastatin 40 mg tablet 40 mg PO DAILY 12/09/22 12/09/22 History sulfamethoxazole 800 1 tablet PO Q12H #20 tabs 12/13/22 Rx mg-trimethoprim 160 mg tablet valacyclovir 1 gram tablet 1,000 mg PO TID #21 tabs 06/10/23 Rx (Valtrex) Allergies Allergy/AdvReac Type Severity Reaction Status Date / Time No Known Allergies Allergy Verified 05/29/25 13:21 Vital Signs Vital Signs - 24 hr 05/29/25 13:17 05/29/25 13:48 05/29/25 16:48 Temperature 97.9 F 98.6 F Pulse Rate 82 77 85 Respiratory Rate 18 15 16 Blood Pressure 113/76 113/71 130/76 Pulse Oximetry 96 96 94 Oxygen Delivery Room Air 05/29/25 17:03 Temperature Pulse Rate 87 Respiratory Rate 16 Blood Pressure 131/78 Pulse Oximetry 97 Oxygen Delivery Exam Narrative: No acute distress Const: General: comfortable and no acute distress HENMT: Face/Nose/Sinus: Normal nares present Mouth: Yes moist mucous membranes Eyes: Sclera: sclerae normal Neck: Neck: supple Resp: Effort & Inspection: normal respiratory effort Auscultation: clear to auscultation bilaterally Cardio: Rate: regular rate Rhythm: regular rhythm GI: GI Palp: Yes Soft to palpation Auscultation: normal bowel sounds Skin: General skin exam: erythema Other: Noted redness with streaking on left below amputation site. Streaking going up to medial side of left thigh as well Tenderness to touch around the stump site Neuro: Speech: normal speech Extrem: Other: No leg swelling in right leg Psych: Mental Status: mental status grossly normal H&P: Results Labs Labs: Short CBC 05/29/25 Range/Units 14:10 WBC 7.6 (4.5-10.0) K/mm3 Hgb 16.2 (14.0-18.0) g/dL Hct 47.0 (42.0-52.0) % Plt Count 132 L (150-375) k/mm3 [facility] 05/29/25 14:10 Sodium 137 Potassium 4.2 Chloride 103 Carbon Dioxide 28 BUN 19 Creatinine 1.34 H Glucose 128 H Calcium 9.0 Assessment and Plan Assessment and plan (1) Hypertension: Code(s): I10 - Essential (primary) hypertension Status: Acute (2) Hyperlipidemia associated with type 2 diabetes mellitus: Code(s): E11.69 - Type 2 diabetes mellitus with other specified complication; E78.5 - Hyperlipidemia, unspecified Status: Acute (3) Diabetes: Code(s): E11.9 - Type 2 diabetes mellitus without complications Status: Acute (4) Cellulitis: Qualifiers: Laterality: left Site of cellulitis: extremity Site of cellulitis of extremity: lower extremity Qualified Code(s): L03.116 - Cellulitis of left lower limb Code(s): L03.90 - Cellulitis, unspecified Status: Acute (5) 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 1. Cellulitis of left knee/below-knee amputation site: Admit to General Medicine Obtain CT left knee without contrast Obtain blood culture We will start on vancomycin, cefepime Pain control Tylenol p.r.n. for fever 2. Diabetes mellitus: Hold oral medications from home Blood glucose check a.c. and HS Continue with sliding scale insulin Obtain hemoglobin A1c with next set of labs 3. History of CKD: Stage II as per reported by patient Monitor kidney function Avoid nephrotoxins Recheck BMP in a.m. 4. Await medication reconciliation 5. Code status: Full 6. DVT prophylaxis: Heparin subQ 7. Disposition: Admit to General Medicine Quality VTE Prophylaxis VTE prophylaxis: pharmacologic ordered Hospitalist MIPS Advance Care Plan I have confirmed that the patient's Advanced Care Plan is present, code status is documented, or surrogate decision maker is listed in patient medical record.: Yes Medication Reconciliation I have utilized all available resources to obtain, update and review the patients current medications (includes all prescriptions, OTC, herbals, cannabis, and nutritional supplements).: Yes
--- NOTE | 2025-05-29 18:46 | ADMGEN ---
This patient, Wayne Walsh Jr., was admitted to Medical Room 253-01. Patient/family oriented to hospital policies and general routines including ID bracelet, bed and alarms, visiting hours, pain management, procedures, bathroom and other care routines, personal items, smoking policy, room service/diet, and visiting hours. Information on how to activate the Rapid Response Team has been discussed. Patient/Family are encouraged to report perceived risks to care and to ask questions if they do not understand what they are told or what they should do.
[2025-05-29] MEDS: CEFEPIME 1 GM in SODIUM CHLORIDE 0.9% IV 50 ML 100 ML IVPB (18:47)
[2025-05-29] MEDS: oxyCODONE/ACETAMINOPHEN (*CRX) 5-325 MG TABLET 1 TABLET PO (21:12)
[2025-05-30] VITALS (7 sets, daily range): BP systolic 114–131; BP diastolic 71–78; PULSE 61–80; RESP 14–20; TEMP 36.4–37.2; O2SAT 90–98
[2025-05-30 05:04] LABS: Hematocrit 45.2 % (42.0-52.0); Hemoglobin 15.5 g/dL (14.0-18.0); Immature Granulocyte Percent A 0.4 % (0-0.5); Immature Platelet Fraction Pct 3.5 % (0.9-11.2); Lymphocytes Absolute Auto 2.11 K/mm3 (0.9-3.2); Mean Corpuscular HGB Conc 34.3 g/dl (32-36); Mean Corpuscular Hemoglobin 31.8 pg (26-34); Mean Corpuscular Volume 92.8 fl (80-100); Nucleated Red Blood Cells Absolute Auto 0.000 K/mm3 (0.0-0.012); Nucleated Red Blood Cells Perc 0.0 % (0.0-0.2); Platelet Count Result 126 k/mm3 (150-375); Red Blood Count 4.87 M/mm3 (4.6-6.20); White Blood Count 7.3 K/mm3 (4.5-10.0)
[2025-05-30 05:12] LABS: Hemoglobin A1C 6.4 % (<5.7)
[2025-05-30 05:24] LABS: Anion Gap 7 mmol/L (4-12); Blood Urea Nitrogen 19 mg/dL (9-20); Calcium 8.8 mg/dL (8.4-10.2); Carbon Dioxide 27 mmol/L (22-30); Chloride 104 mmol/L (98-107); Estimated CRCL calculation 60 ml/min; Estimated Glomerular Filt Rate > 60; Glucose 105 mg/dL (65-110); Potassium 4.0 mmol/L (3.4-5.0); Sodium 138 mmol/L (137-145)
[2025-05-30] MEDS: CEFEPIME 1 GM in SODIUM CHLORIDE 0.9% IV 50 ML 100 ML IVPB ×2 (05:27→17:14)
[2025-05-30] MEDS: METOPROLOL TARTRATE 25 MG TABLET PO (08:05)
[2025-05-30] MEDS: ACETAMINOPHEN 325 MG TABLET 650 MG PO (08:10)
[2025-05-30] MEDS: oxyCODONE/ACETAMINOPHEN (*CRX) 5-325 MG TABLET 1 TABLET PO ×2 (11:02→21:07)
[2025-05-30] MEDS: VANCOMYCIN 1,250 MG/NS 250 ML 1,250 MG/250 ML BAG 166.67 MG IVPB (15:02)
--- NOTE | 2025-05-30 16:29 | PM.IMPN ---
Progress Note: A&P Assessment and Plan (1) Cellulitis: Qualifiers: Laterality: left Site of cellulitis: extremity Site of cellulitis of extremity: lower extremity Qualified Code(s): L03.116 - Cellulitis of left lower limb Code(s): L03.90 - Cellulitis, unspecified Status: Acute Plan Cellulitis slightly improved. He is worried about the cellulitis since he had MRSA infection and his right hand previously, reports it eroded his bone. Continue cefepime and vancomycin. Follow blood cultures. Asked nurse to nguyen borders of cellulitis with surgical marker. Blood sugars reviewed, currently they are at goal, continue to hold this [employer] insulin 38 units Q p.m.. Continue Accu-Cheks a.c. HS with low-dose insulin sliding scale. Full code. Saline lock IV. Heparin 5000 units subQ q.8 hours for DVT prophylaxis. Prior to admission he lives at home. Time Spent With Patient Time with patient: Greater than 35 minutes Subjective Date/time seen: 05/30/25 16:29 Interval history: No major acute overnight events. Patient reports pain in his left lower extremity where the cellulitis is, believes the cellulitis is slightly improved. Review of Systems Review of Systems: All systems reviewed & are unremarkable except as noted in HPI and below (Subjective) Exam Const: General: comfortable and no acute distress Other: A&O x3 HENMT: Mouth: Yes moist mucous membranes Eyes: Pupils: Equal, round and reactive pupils present Neck: Neck: supple Resp: Effort & Inspection: normal respiratory effort Auscultation: clear to auscultation bilaterally Cardio: Rate: regular rate Rhythm: regular rhythm GI: Inspection: non-distended GI Palp: Yes Soft to palpation and No Tenderness to palpation present (GI) Skin: General skin exam: erythema Other: Erythema slightly tender to deep palpation at the anterior aspect of his stump, with associated streaking superiorly into his thigh Extrem: General: no edema Objective Data Vital Signs Vital Signs: Vital Signs - 24 hr 05/29/25 16:48 05/29/25 17:03 05/29/25 18:17 Temperature 98.6 F 98.8 F Pulse Rate 85 87 89 Respiratory Rate 16 16 15 Blood Pressure 130/76 131/78 136/93 H Pulse Oximetry 94 97 95 Oxygen Delivery 05/29/25 18:44 05/29/25 20:00 05/29/25 20:00 Temperature 99.1 F 98.3 F Pulse Rate 88 85 Respiratory Rate 16 17 Blood Pressure 125/81 134/75 Pulse Oximetry 97 93 Oxygen Delivery Room Air 05/29/25 22:00 05/30/25 02:32 05/30/25 05:26 Temperature 98.9 F Pulse Rate 82 68 Respiratory Rate 18 Blood Pressure 119/71 Pulse Oximetry 92 97 Oxygen Delivery CPAP CPAP 05/30/25 08:03 05/30/25 08:05 05/30/25 08:05 Temperature 98.1 F Pulse Rate 73 74 74 Respiratory Rate 16 16 Blood Pressure 131/78 Pulse Oximetry 97 97 Oxygen Delivery CPAP 05/30/25 14:00 Temperature 97.8 F Pulse Rate 65 Respiratory Rate 20 Blood Pressure 114/74 Pulse Oximetry 98 Oxygen Delivery Intake/Output Intake/Output: Intake & Output 05/27/25 05/28/25 05/29/25 05/30/25 23:59 23:59 23:59 23:59 Intake Total 300 1030 Balance 300 1030 Meds/Results Medications: Active Medications Generic Name Dose Route Start Last Admin Trade Name Freq PRN Reason Stop Dose Admin Acetaminophen 650 mg 05/29/25 17:07 05/30/25 08:10 Acetaminophen 325 Mg Tablet PO 650 mg Q4HR PRN Administration fever>100.4, pain 1-3 Dextrose 12.5 gm 05/29/25 17:08 Dextrose 50% 25 Gm/50 Ml Syringe IV PUSH PRN PRN Hypoglycemia Protocol Glucagon 1 mg 05/29/25 17:08 Glucagon For Inj 1 Mg Vial IM PRN PRN Hypoglycemia Protocol Glucose 15 gm 05/29/25 17:08 Glucose Oral Gel 15 Gm Of Glucse In 37.5 Gm Tube PO PRN PRN Hypoglycemia Protocol Heparin Sodium (Porcine) 5,000 units 05/29/25 22:00 05/30/25 14:59 Heparin Sodium 5,000 Units/Ml Vial SUB-Q 5,000 units Q8HR RIANNA Administration Cefepime HCl 1 gm/ Sodium 50 mls @ 100 mls/hr 05/30/25 06:00 05/30/25 05:57 Chloride IVPB Infused Q12H RIANNA Infusion Dextrose 1,000 mls @ 100 mls/hr 05/29/25 17:08 Dextrose 5% 1,000 Ml IVPB PRN PRN Hypoglycemia Protocol Vancomycin HCl 1,250 mg in 250 mls @ 166.667 mls/hr 05/30/25 16:00 05/30/25 15:02 Vancomycin 1,250 Mg/Ns 250 Ml IVPB 166.67 mls/hr Q24H RIANNA Administration Insulin Aspart 1 - 3 units 05/29/25 21:00 05/29/25 21:20 Insulin Aspart (*Bkc) 100 Units/Ml SUB-Q Not Given HS RIANNA Protocol Insulin Aspart 3 - 6 units 05/30/25 08:00 05/30/25 13:04 Insulin Aspart (*Bkc) 100 Units/Ml SUB-Q Not Given TIDWM RIANNA Protocol Metoprolol Tartrate 25 mg 05/30/25 09:00 05/30/25 08:05 Metoprolol Tartrate 25 Mg Tablet PO 25 mg DAILY RIANNA Administration Ondansetron HCl 4 mg 05/29/25 17:06 Ondansetron Inj 4 Mg/2 Ml Vial IV PUSH Q4HR PRN Nausea And Vomiting Oxycodone/Acetaminophen 1 tablet 05/29/25 17:25 05/30/25 11:02 Oxycodone/Acetaminophen (*Crx) 5-325 Mg Tablet PO 1 tablet Q4H PRN Administration Pain Rated 7-10 Radiology Results: ITS Impressions Knee X-Ray 05/29/25 14:06 IMPRESSION: 1. Status post left urxmn-czu-mrkc amputation. No left knee joint effusion, acute osseous abnormality or regions of cortical erosion/osteolysis to suggest osteomyelitis. Knee CT 05/29/25 20:35 IMPRESSION: 1. Status post left rfvgs-dhw-sfnm amputation with cellulitis contrast. Skin thickening and subcutaneous edema overlying the anterior tibial osteotomy margin. No abscess or findings to suggest osteomyelitis. Labs Labs: Laboratory Results - last 24 hr 05/29/25 05/29/25 05/30/25 16:32 21:15 04:54 WBC 7.3 RBC 4.87 Hgb 15.5 Hct 45.2 MCV 92.8 MCH 31.8 MCHC 34.3 RDW 13.2 Plt Count 126 L MPV 10.1 Immature Gran % (Auto) 0.4 Neut % (Auto) 58.6 Lymph % (Auto) 29.0 [place] % (Auto) 9.9 H Eos % (Auto) 1.5 Baso % (Auto) 0.6 Lymph # (Auto) 2.11 [place] # (Auto) 0.7 H Eos # (Auto) 0.1 Baso # (Auto) 0.0 Abs Immat Gran (auto) 0.03 Absolute Neuts (auto) 4.3 Absolute Nucleated RBC 0.000 Nucleated RBC % 0.0 % Immature Plt Fraction 3.5 D-Dimer < 0.27 Sodium 138 Potassium 4.0 Chloride 104 Carbon Dioxide 27 Anion Gap 7 BUN 19 Creatinine 1.09 Estim Creat Clear Calc 60 Estimated GFR > 60 Glucose 105 POC Capillary Glucose 126 H Hemoglobin A1c 6.4 H Calcium 8.8 05/30/25 05/30/25 07:44 11:23 WBC RBC Hgb Hct MCV MCH MCHC RDW Plt Count MPV Immature Gran % (Auto) Neut % (Auto) Lymph % (Auto) [place] % (Auto) Eos % (Auto) Baso % (Auto) Lymph # (Auto) [place] # (Auto) Eos # (Auto) Baso # (Auto) Abs Immat Gran (auto) Absolute Neuts (auto) Absolute Nucleated RBC Nucleated RBC % % Immature Plt Fraction D-Dimer Sodium Potassium Chloride Carbon Dioxide Anion Gap BUN Creatinine Estim Creat Clear Calc Estimated GFR Glucose POC Capillary Glucose 106 H 137 H Hemoglobin A1c Calcium
[2025-05-31 03:55] VITALS: PULSE 81; O2SAT 92
[2025-05-31 05:08] LABS: Hematocrit 44.7 % (42.0-52.0); Hemoglobin 15.3 g/dL (14.0-18.0); Immature Granulocyte Percent A 0.3 % (0-0.5); Immature Platelet Fraction Pct 3.0 % (0.9-11.2); Lymphocytes Absolute Auto 1.66 K/mm3 (0.9-3.2); Mean Corpuscular HGB Conc 34.2 g/dl (32-36); Mean Corpuscular Hemoglobin 31.4 pg (26-34); Mean Corpuscular Volume 91.8 fl (80-100); Nucleated Red Blood Cells Absolute Auto 0.000 K/mm3 (0.0-0.012); Nucleated Red Blood Cells Perc 0.0 % (0.0-0.2); Platelet Count Result 134 k/mm3 (150-375); Red Blood Count 4.87 M/mm3 (4.6-6.20); White Blood Count 5.8 K/mm3 (4.5-10.0)
[2025-05-31 05:18] LABS: Anion Gap 5 mmol/L (4-12); Blood Urea Nitrogen 18 mg/dL (9-20); Calcium 9.0 mg/dL (8.4-10.2); Carbon Dioxide 27 mmol/L (22-30); Chloride 104 mmol/L (98-107); Estimated CRCL calculation 62 ml/min; Estimated Glomerular Filt Rate > 60; Glucose 131 mg/dL (65-110); Magnesium 2.2 mg/dL (1.6-2.3); Potassium 4.4 mmol/L (3.4-5.0); Sodium 136 mmol/L (137-145)
[2025-05-31] MEDS: CEFEPIME 1 GM in SODIUM CHLORIDE 0.9% IV 50 ML 100 ML IVPB ×2 (05:51→18:55)
[2025-05-31 06:35] VITALS: BP 127/70; PULSE 69; RESP 14; TEMP 36.7; O2SAT 94
[2025-05-31 08:11] VITALS: PULSE 72
[2025-05-31] MEDS: METOPROLOL TARTRATE 25 MG TABLET PO (08:11)
[2025-05-31 14:00] VITALS: BP 137/82; PULSE 66; RESP 18; TEMP 37; O2SAT 96
--- NOTE | 2025-05-31 15:40 | P.PNIM_ITS ---
Progress Note: A&P Assessment and Plan (1) Cellulitis: Qualifiers: Laterality: left Site of cellulitis: extremity Site of cellulitis of extremity: lower extremity Qualified Code(s): L03.116 - Cellulitis of left lower limb Code(s): L03.90 - Cellulitis, unspecified Status: Acute Plan Cellulitis slightly improved. He is worried about the cellulitis since he had MRSA infection and his right hand previously, reports it eroded his bone. Does not feel safe to return home today. Continue cefepime and vancomycin. Follow blood cultures. Borders are marked. Blood sugars reviewed, slightly elevated. 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 Continue Accu-Cheks a.c. HS with low-dose insulin sliding scale. Full code. Saline lock IV. Heparin 5000 units subQ q.8 hours for DVT prophylaxis. Prior to admission he lives at home, and did not wheelchair for ambulation. Diabetic diet. Time Spent With Patient Time with patient: Greater than 35 minutes Subjective Date/time seen: 05/31/25 15:40 Interval history: No major acute overnight events. Patient reports pain has improved at the site of rash. Denies any other symptoms. Review of Systems Review of Systems: All systems reviewed & are unremarkable except as noted in HPI and below (Subjective) Exam Const: General: comfortable and no acute distress Other: A&O x3 HENMT: Mouth: Yes moist mucous membranes Eyes: Pupils: Equal, round and reactive pupils present Neck: Neck: supple Resp: Effort & Inspection: normal respiratory effort Auscultation: clear to auscultation bilaterally Cardio: Rate: regular rate Rhythm: regular rhythm GI: Inspection: non-distended GI Palp: Yes Soft to palpation and No Tenderness to palpation present (GI) Skin: General skin exam: erythema Other: Erythema nontender tender to deep palpation at the anterior aspect of his stump, with associated streaking superiorly into his thigh. Slightly improved within marked borders from day prior. Extrem: General: no edema Objective Data Vital Signs Vital Signs: Vital Signs - 24 hr 05/30/25 20:00 05/30/25 20:34 05/30/25 21:11 Temperature 97.6 F Pulse Rate 78 61 Respiratory Rate 20 14 Blood Pressure 127/75 Pulse Oximetry 90 97 Oxygen Delivery Room Air Room Air Fraction of Inspired Oxygen 05/30/25 23:04 05/31/25 03:55 05/31/25 06:35 Temperature 98.0 F Pulse Rate 80 81 69 Respiratory Rate 14 Blood Pressure 127/70 Pulse Oximetry 93 92 94 Oxygen Delivery CPAP CPAP Fraction of Inspired Oxygen 05/31/25 08:00 05/31/25 08:11 05/31/25 14:00 Temperature 98.6 F Pulse Rate 72 66 Respiratory Rate 18 Blood Pressure 137/82 Pulse Oximetry 96 Oxygen Delivery CPAP Fraction of Inspired Oxygen Intake/Output Intake/Output: Intake & Output 05/28/25 05/29/25 05/30/25 05/31/25 23:59 23:59 23:59 23:59 Intake Total 300 1870 660 Balance 300 1870 660 Meds/Results Medications: Active Medications Generic Name Dose Route Start Last Admin Trade Name Freq PRN Reason Stop Dose Admin Acetaminophen 650 mg 05/29/25 17:07 05/30/25 08:10 Acetaminophen 325 Mg Tablet PO 650 mg Q4HR PRN Administration fever>100.4, pain 1-3 Allopurinol 300 mg 06/01/25 09:00 Allopurinol 300 Mg Tablet PO DAILY [facility] Aspirin 81 mg 06/01/25 09:00 Aspirin 81 Mg Enteric Tablet PO DAILY [facility] Dextrose 12.5 gm 05/29/25 17:08 Dextrose 50% 25 Gm/50 Ml Syringe IV PUSH PRN PRN Hypoglycemia Protocol Empagliflozin 10 mg 06/01/25 09:00 Empagliflozin 10 Mg Tablet PO DAILY [facility] Fish Oil 1 gm 05/31/25 17:00 [place] 3 Polyunsat Fatty Acids 1 Gm Cap PO BID [facility] Gabapentin 300 mg 05/31/25 15:35 Gabapentin 300 Mg Capsule PO Q8H [facility] Glucagon 1 mg 05/29/25 17:08 Glucagon For Inj 1 Mg Vial IM PRN PRN Hypoglycemia Protocol Glucose 15 gm 05/29/25 17:08 Glucose Oral Gel 15 Gm Of Glucse In 37.5 Gm Tube PO PRN PRN Hypoglycemia Protocol Heparin Sodium (Porcine) 5,000 units 05/29/25 22:00 05/31/25 13:51 Heparin Sodium 5,000 Units/Ml Vial SUB-Q 5,000 units Q8HR RIANNA Administration Cefepime HCl 1 gm/ Sodium 50 mls @ 100 mls/hr 05/30/25 06:00 05/31/25 05:51 Chloride IVPB 100 mls/hr Q12H RIANNA Administration Dextrose 1,000 mls @ 100 mls/hr 05/29/25 17:08 Dextrose 5% 1,000 Ml IVPB PRN PRN Hypoglycemia Protocol Vancomycin HCl 1,250 mg in 250 mls @ 166.667 mls/hr 05/30/25 16:00 05/30/25 15:02 Vancomycin 1,250 Mg/Ns 250 Ml IVPB 166.67 mls/hr Q24H RIANNA Administration Insulin Aspart 1 - 3 units 05/29/25 21:00 05/30/25 21:21 Insulin Aspart (*Bkc) 100 Units/Ml SUB-Q Not Given HS [facility] Protocol Insulin Aspart 3 - 6 units 05/30/25 08:00 05/31/25 12:13 Insulin Aspart (*Bkc) 100 Units/Ml SUB-Q Not Given TIDWM [facility] Protocol Metoprolol Tartrate 25 mg 05/30/25 09:00 05/31/25 08:11 Metoprolol Tartrate 25 Mg Tablet PO 25 mg DAILY [facility] Administration Non-Formulary Medication 1,000 mcg 06/01/25 09:00 Ergocalciferol (Vitamin D2) PO 07/01/25 08:59 DAILY [facility] Non-Formulary Medication 160 mg 06/01/25 09:00 Fenofibrate PO 07/01/25 08:59 DAILY [facility] Non-Formulary Medication 15 unit 05/31/25 18:00 Insulin Glargine-Yfgn SUB-Q 06/30/25 17:59 QPM [facility] Ondansetron HCl 4 mg 05/29/25 17:06 Ondansetron Inj 4 Mg/2 Ml Vial IV PUSH Q4HR PRN Nausea And Vomiting Oxycodone/Acetaminophen 1 tablet 05/29/25 17:25 05/30/25 21:07 Oxycodone/Acetaminophen (*Crx) 5-325 Mg Tablet PO 1 tablet Q4H PRN Administration Pain Rated 7-10 Simvastatin 40 mg 06/01/25 09:00 Simvastatin 20 Mg Tablet PO DAILY [facility] Radiology Results: ITS Impressions Knee X-Ray 05/29/25 14:06 IMPRESSION: 1. Status post left xsacx-teq-uhcd amputation. No left knee joint effusion, acute osseous abnormality or regions of cortical erosion/osteolysis to suggest osteomyelitis. Knee CT 05/29/25 20:35 IMPRESSION: 1. Status post left ckkab-mxi-qgla amputation with cellulitis contrast. Skin thickening and subcutaneous edema overlying the anterior tibial osteotomy margin. No abscess or findings to suggest osteomyelitis. Labs Labs: Laboratory Results - last 24 hr 05/30/25 05/30/25 05/31/25 17:13 21:13 04:52 WBC 5.8 RBC 4.87 Hgb 15.3 Hct 44.7 MCV 91.8 MCH 31.4 MCHC 34.2 RDW 13.1 Plt Count 134 L MPV 10.0 Immature Gran % (Auto) 0.3 Neut % (Auto) 56.9 Lymph % (Auto) 28.5 [place] % (Auto) 9.6 H Eos % (Auto) 3.8 Baso % (Auto) 0.9 Lymph # (Auto) 1.66 [place] # (Auto) 0.6 Eos # (Auto) 0.2 Baso # (Auto) 0.1 Abs Immat Gran (auto) 0.02 Absolute Neuts (auto) 3.3 Absolute Nucleated RBC 0.000 Nucleated RBC % 0.0 % Immature Plt Fraction 3.0 Sodium 136 L Potassium 4.4 Chloride 104 Carbon Dioxide 27 Anion Gap 5 BUN 18 Creatinine 1.06 Estim Creat Clear Calc 62 Estimated GFR > 60 Glucose 131 H POC Capillary Glucose 158 H 145 H Calcium 9.0 Magnesium 2.2 05/31/25 05/31/25 07:52 11:49 WBC RBC Hgb Hct MCV MCH MCHC RDW Plt Count MPV Immature Gran % (Auto) Neut % (Auto) Lymph % (Auto) [place] % (Auto) Eos % (Auto) Baso % (Auto) Lymph # (Auto) [place] # (Auto) Eos # (Auto) Baso # (Auto) Abs Immat Gran (auto) Absolute Neuts (auto) Absolute Nucleated RBC Nucleated RBC % % Immature Plt Fraction Sodium Potassium Chloride Carbon Dioxide Anion Gap BUN Creatinine Estim Creat Clear Calc Estimated GFR Glucose POC Capillary Glucose 132 H 136 H Calcium Magnesium
[2025-05-31] MEDS: GABAPENTIN 300 MG CAPSULE PO ×2 (15:44→22:39)
[2025-05-31] MEDS: VANCOMYCIN 1,500 MG/NS 500 ML 1,500 MG/500 ML BAG 250 MG IVPB (17:01)
[2025-05-31] MEDS: OMEGA 3 POLYUNSAT FATTY ACIDS 1 GM CAP PO (17:01)
[2025-05-31] MEDS: INSULIN GLARGINE (*BKC) 100 UNITS/ML 15 UNITS SUB-Q (17:06)
[2025-05-31 20:00] VITALS: PULSE 66; RESP 18; O2SAT 96
[2025-05-31 21:37] VITALS: BP 134/77; PULSE 66; RESP 16; TEMP 36.6; O2SAT 97
[2025-06-01 05:18] LABS: Hematocrit 44.2 % (42.0-52.0); Hemoglobin 15.3 g/dL (14.0-18.0); Immature Granulocyte Percent A 0.5 % (0-0.5); Lymphocytes Absolute Auto 1.70 K/mm3 (0.9-3.2); Mean Corpuscular HGB Conc 34.6 g/dl (32-36); Mean Corpuscular Hemoglobin 31.7 pg (26-34); Mean Corpuscular Volume 91.5 fl (80-100); Nucleated Red Blood Cells Absolute Auto 0.000 K/mm3 (0.0-0.012); Nucleated Red Blood Cells Perc 0.0 % (0.0-0.2); Platelet Count Result 146 k/mm3 (150-375); Red Blood Count 4.83 M/mm3 (4.6-6.20); White Blood Count 5.7 K/mm3 (4.5-10.0)
[2025-06-01 05:23] VITALS: BP 124/69; PULSE 70; RESP 18; TEMP 36.4; O2SAT 96
[2025-06-01] MEDS: CEFEPIME 1 GM in SODIUM CHLORIDE 0.9% IV 50 ML 100 ML IVPB (05:34)
[2025-06-01] MEDS: GABAPENTIN 300 MG CAPSULE PO ×2 (05:35→14:01)
[2025-06-01 05:36] LABS: Anion Gap 7 mmol/L (4-12); Blood Urea Nitrogen 17 mg/dL (9-20); Calcium 8.9 mg/dL (8.4-10.2); Carbon Dioxide 25 mmol/L (22-30); Chloride 103 mmol/L (98-107); Estimated CRCL calculation 76 ml/min; Estimated Glomerular Filt Rate > 60; Glucose 138 mg/dL (65-110); Magnesium 2.0 mg/dL (1.6-2.3); Potassium 4.3 mmol/L (3.4-5.0); Sodium 135 mmol/L (137-145)
[2025-06-01 08:08] VITALS: PULSE 72
[2025-06-01] MEDS: METOPROLOL TARTRATE 25 MG TABLET PO (08:08)
[2025-06-01] MEDS: FENOFIBRATE 145 MG TABLET PO (08:08)
[2025-06-01] MEDS: OMEGA 3 POLYUNSAT FATTY ACIDS 1 GM CAP PO (08:08)
[2025-06-01] MEDS: EMPAGLIFLOZIN 10 MG TABLET PO (08:08)
[2025-06-01] MEDS: CHOLECALCIFEROL (VITAMIN D3) 25 MCG (1,000 UNITS) TABLET PO (08:08)
[2025-06-01] MEDS: ASPIRIN 81 MG ENTERIC TABLET PO (08:08)
[2025-06-01] MEDS: VANCOMYCIN 1,500 MG/NS 500 ML 1,500 MG/500 ML BAG 250 MG IVPB (10:33)
[2025-06-01 14:00] VITALS: BP 123/82; PULSE 70; RESP 18; TEMP 37.1; O2SAT 95
--- NOTE | 2025-06-01 14:58 | P.DS_ITS ---
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 He reports he had cellulitis 2022 treated successfully with Bactrim. He was admitted for IV antibiotics. Initially he received cefepime and vancomycin. Patient has had improvement of his symptoms. Denies any fever, pain or itching at the site of cellulitis. Patient feels stable and ready to return home with his . He is stable for discharge on 06/01/2025. He received another 7 days of Bactrim 1 tab double-strength b.i.d. to completed 10 day course. His blood cultures are negative to date. He does not take metoprolol, he takes propranolol for essential tremor. Advised follow with PCP within 10 days. Hold lisinopril while he is taking Bactrim, monitor blood pressure and follow-up with PCP in further management. Time Spent with Patient Time attestation: Total time spent providing and/or coordinating discharge services: DS: Data Data Completed and Pending Labs on day of discharge: Labs from last 24 hours 06/01/25 06/01/25 06/01/25 11:17 07:44 05:02 WBC 5.7 RBC 4.83 Hgb 15.3 Hct 44.2 MCV 91.5 MCH 31.7 MCHC 34.6 RDW 12.8 Plt Count 146 L MPV 10.1 Immature Gran % (Auto) 0.5 Neut % (Auto) 57.0 Lymph % (Auto) 30.0 Johnston % (Auto) 9.2 H Eos % (Auto) 2.8 Baso % (Auto) 0.5 Lymph # (Auto) 1.70 Johnston # (Auto) 0.5 Eos # (Auto) 0.2 Baso # (Auto) 0.0 Abs Immat Gran (auto) 0.03 Absolute Neuts (auto) 3.2 Absolute Nucleated RBC 0.000 Nucleated RBC % 0.0 Sodium 135 L Potassium 4.3 Chloride 103 Carbon Dioxide 25 Anion Gap 7 BUN 17 Creatinine 0.85 Estim Creat Clear Calc 76 Estimated GFR > 60 Glucose 138 H POC Capillary Glucose 129 H 126 H Calcium 8.9 Magnesium 2.0 Vancomycin Trough 05/31/25 05/31/25 05/31/25 21:36 16:46 14:47 WBC RBC Hgb Hct MCV MCH MCHC RDW Plt Count MPV Immature Gran % (Auto) Neut % (Auto) Lymph % (Auto) Johnston % (Auto) Eos % (Auto) Baso % (Auto) Lymph # (Auto) Johnston # (Auto) Eos # (Auto) Baso # (Auto) Abs Immat Gran (auto) Absolute Neuts (auto) Absolute Nucleated RBC Nucleated RBC % Sodium Potassium Chloride Carbon Dioxide Anion Gap BUN Creatinine Estim Creat Clear Calc Estimated GFR Glucose POC Capillary Glucose 113 H 117 H Calcium Magnesium Vancomycin Trough 6.2 L Preliminary micro results at discharge 05/29/25 16:32 Blood Culture - Preliminary Blood 05/29/25 16:31 Blood Culture - Preliminary Blood Discharge Plan Discharge Attending physician on discharge: Nataly Cordero Discharging Clinician: Nataly Cordero Patient Disposition: Home Activity: december shower Diet: as tolerated Patient Instructions: Antibiotic Form Patient Language: Czech Stand Alone Forms: General Discharge Information Follow-up/Referrals: Kojo,TRISH Baldwin [Primary Care Provider, Unknown] Discharge Medications: New sulfamethoxazole-trimethoprim [Bactrim DS] 800-160 mg tablet 1 tablet PO Q12H 7 Days Qty: 14 0RF Continued aspirin 81 mg tablet,delayed release (DR/EC) 81 mg PO DAILY simvastatin 40 mg tablet 40 mg PO QHS metformin 1,000 mg tablet 1,000 mg PO BID allopurinol 300 mg tablet 300 mg PO DAILY omega-3 acid ethyl esters 1 gram capsule 1 g PO BID fenofibrate 160 mg tablet 160 mg PO DAILY Jardiance 10 mg tablet 10 mg PO DAILY ergocalciferol (vitamin D2) 1,000 unit capsule 1,000 mcg PO DAILY gabapentin 300 mg capsule 300 mg PO Q8H insulin glargine-yfgn 100 unit/mL (3 mL) insulin pen 38 unit SUBCUT QPM Ozempic 1 mg/dose (4 mg/3 mL) pen injector 1 mg SUBCUT WEEKLY Rx Instructions: takes on Held losartan 25 mg tablet 25 mg PO DAILY Hold Instructions: Do not take this while you are taking Bactrim. Monitor your blood pressure at home, discuss further utilization of this blood pressure medication with your PCP. Date of admission: 05/30/25 08:19 Primary Care Provider: Kojo,Ekaterina Duggan Admitting Provider: Grisel Ordonez Attending physician on admission: Grisel Ordonez Condition: Stable
== END 2025-06-01 15:40 | disposition home or self-care (01) | DRG 565 ==
LOC: ANHED 16:27 → ANH2MED 18:20
PROVIDERS: Admitting Provider Internal Medicine; Emergency Provider Physician Assistant; PCP Physician Assistant; Visit Provider General Practice
DX: T87.44 Infection of amputation stump, left lower extremity (principal); L03.116 Cellulitis of left lower limb; I12.9 Hypertensive chronic kidney disease with stage 1 through stage 4 chronic kidney disease, or unspecified chronic kidney disease; N18.2 Chronic kidney disease, stage 2 (mild); E11.22 Type 2 diabetes mellitus with diabetic chronic kidney disease; E78.5 Hyperlipidemia, unspecified; G25.0 Essential tremor; F17.210 Nicotine dependence, cigarettes, uncomplicated; F10.90 Alcohol use, unspecified, uncomplicated; Z89.512 Acquired absence of left leg below knee; Z89.419 Acquired absence of unspecified great toe; Z79.4 Long term (current) use of insulin; Z79.84 Long term (current) use of oral hypoglycemic drugs; Z86.14 Personal history of Methicillin resistant Staphylococcus aureus infection
CPT/HCPCS: 36415; 73564; 73700; 80048; 80202; 82948; 83036; 83735; 84550; 85025; 85055; 85380; 85610; 85652; 85730; 86140; 87040; 96365; 96367; 96372; 99285; A9270; G0378; J0692; J1644; J1815; J3373